=== PATIENT | female | born 1950 | race Caucasian/White ===

== ENCOUNTER 2019-06-07 00:23 | Day surgery (SDC) | payer MEDICARE, SELFPAY ==
[2019-06-04 15:29] VITALS: BMI 34.0
[2019-06-07] MEDS: LACTATED RINGERS 1,000 ML 150 ML IV CONT (13:10)
[2019-06-07 13:12] VITALS: BP 148/76; PULSE 91; RESP 16; TEMP 29.3; O2SAT 96; BMI 34.1
--- NOTE | 2019-06-07 13:26 | WPDANESEPPF ---
Anes - Initial Pre Proc Eval Procedure: Operation Date: 06/07/19 13:30 Proposed Procedures p Esophagogastroduodenoscopy - Manuel Mancia MD Date/Time: 06/07/19 13:26 Surgeon: Manuel Mancia MD Pre Op Diagnosis: dysphagia, GERD Patient Data Age: 68 Gender: F Height: 5 ft 2 in Weight: 84.7 kg Last Vital Signs Temp 84.7 F L 06/07/19 13:12 Pulse 91 06/07/19 13:12 Resp 16 06/07/19 13:12 BP 148/76 H 06/07/19 13:12 Pulse Ox 96 06/07/19 13:12 Allergies Allergy/AdvReac Type Severity Reaction Status Date / Time Sulfa (Sulfonamide Allergy Unknown Pruritic Verified 06/07/19 12:55 Antibiotics) rash Home Medications Medication Instructions Recorded Confirmed Type alprazolam 0.25 mg tablet 0.25 mg PO PRN 03/15/19 04/14/19 History atorvastatin 10 mg tablet 10 mg PO DAILY 03/15/19 06/04/19 History valsartan 40 mg tablet 40 mg PO BID 03/15/19 06/04/19 History sucralfate 1 gram tablet 1 gm PO BID #60 tablet 04/13/19 06/04/19 Rx trazodone 100 mg tablet 50 mg PO DAILY #90 tablet 04/13/19 06/04/19 Rx venlafaxine 75 mg capsule,extended 75 mg PO DAILY #90 cap 04/13/19 06/04/19 Rx release 24 hr hydrochlorothiazide 25 mg PO BID 06/04/19 06/04/19 History Patient hx anesthesia problems: none Family hx anesthesia problems: none [facility] Past Medical History Medical History (Updated 04/14/19 @ 09:57 by Adrianna Silva MD) Benign hypertension without CHF Degenerative joint disease of knee GERD (gastroesophageal reflux disease) GERD with esophagitis MDD (major depressive disorder), recurrent episode, moderate Medial meniscus tear Social History Social History (Updated 04/13/19 @ 09:28 by Fern Coles) Smoking status: Never smoker Second hand tobacco smoke exposure: No Alcohol intake: current Drinks per week: 1 Substance use: never Substance use type: does not use Gender identity (if verbalized by the patient): Female Anes - Eval Final PreProcedure Day of Procedure 06/07/19 13:26 Patient weight: obese Heart: regular rate and rhythm Lungs: clear to auscultation Airway: Mallampati scale class II Neurological: alert and oriented Last oral intake: >/= 8 hours ASA classification: II Emergent: no Anesthetic plan: proceed Anesthesia type and monitoring: general GIVS and standard monitoring Informed Consent: The patient's anesthetic plan and its attendant risks and benefits were discussed with the patient/family/POA. Questions were solicited and answers provided to the satisfaction of the patient/family/POA.
--- NOTE | 2019-06-07 14:13 | PM.HPGS ---
History of Present Illness History of Present Illness Consent: Risks, benefits, and alternatives have been discussed and questions answered. Patient agrees to proceed with procedure. Chief complaint: dysphagia, GERD Narrative: Randi Ervin is a 68 year old female with symptomatic GERD and nausea, EGD 2018 was normal. Review of Systems Constitutional: Constitutional: Denies headache(s) and Denies weakness Eyes: Eyes: Denies blurry vision ENT: Reports Normal hearing present, Denies headache(s) and Denies neck pain Cardiovascular: Cardiovascular: Denies chest pain and Denies dyspnea Respiratory: Respiratory: Denies dyspnea Gastrointestinal: Gastrointestinal: Reports no additional gastrointestinal complaints Genitourinary: Genitourinary: Denies dysuria Musculoskeletal: Musculoskeletal: Denies neck pain Integumentary/Breasts: Skin/Breast: Denies dry skin Neurologic: Reports Normal hearing present, Denies headache(s) and Denies weakness Psychiatric: Psychiatric: Denies anxiety Endocrine: Endocrine: Denies change in body appearance Hematologic/Lymphatic: Hematologic/Lymphatic: Denies easy bleeding Allergic/Immunologic: Allergic/Immunologic: Denies urticaria PMF Past Medical History Medical History (Updated 04/14/19 @ 09:57 by Adrianna Silva MD) Benign hypertension without CHF Degenerative joint disease of knee GERD (gastroesophageal reflux disease) GERD with esophagitis MDD (major depressive disorder), recurrent episode, moderate Medial meniscus tear Social History Social History (Updated 04/13/19 @ 09:28 by Fern Coles) Smoking status: Never smoker Second hand tobacco smoke exposure: No Alcohol intake: current Drinks per week: 1 Substance use: never Substance use type: does not use Gender identity (if verbalized by the patient): Female Meds Home Medications and Allergies Home Medications Medication Instructions Recorded Confirmed Type alprazolam 0.25 mg tablet 0.25 mg PO PRN 03/15/19 04/14/19 History atorvastatin 10 mg tablet 10 mg PO DAILY 03/15/19 06/04/19 History valsartan 40 mg tablet 40 mg PO BID 03/15/19 06/04/19 History sucralfate 1 gram tablet 1 gm PO BID #60 tablet 04/13/19 06/04/19 Rx trazodone 100 mg tablet 50 mg PO DAILY #90 tablet 04/13/19 06/04/19 Rx venlafaxine 75 mg capsule,extended 75 mg PO DAILY #90 cap 04/13/19 06/04/19 Rx release 24 hr hydrochlorothiazide 25 mg PO BID 06/04/19 06/04/19 History Allergies Allergy/AdvReac Type Severity Reaction Status Date / Time Sulfa (Sulfonamide Allergy Unknown Pruritic Verified 06/07/19 12:55 Antibiotics) rash Vital Signs Vital Signs - 24 hr 06/07/19 13:12 Temperature 84.7 F L Pulse Rate 91 Respiratory Rate 16 Blood Pressure 148/76 H Pulse Oximetry 96 Exam Const: General: comfortable and no acute distress HENMT: General nose exam: Normal nares present Eyes: General: appearance normal, both eyes and all related structures Neck: Neck: no JVD Resp: Auscultation: clear to auscultation bilaterally Cardio: Rate: regular rate Rhythm: regular rhythm GI: Inspection: non-distended GI Palp: Yes Soft to palpation Skin: General skin exam: normal color Neuro: General: gait normal Speech: normal speech Extrem: General: normal to inspection Psych: Mental Status: mental status grossly normal Assessment and Plan Assessment and plan (1) GERD with esophagitis: Code(s): K21.0 - Gastro-esophageal reflux disease with esophagitis Status: Acute Assessment and Plan: will proceed with EGD, consider biopsies and probably will need to be back on PPI (2) Chest pressure: Code(s): R07.89 - Other chest pain Status: Acute (3) MDD (major depressive disorder), recurrent episode, moderate: Code(s): F33.1 - Major depressive disorder, recurrent, moderate Status: Acute
[2019-06-07 14:30] VITALS: BP 136/64; PULSE 82; RESP 20; O2SAT 100
[2019-06-07 14:40] VITALS: BP 139/60; PULSE 79; RESP 18; O2SAT 100
[2019-06-07 14:50] VITALS: BP 136/71; PULSE 71; RESP 17; O2SAT 100
== END 2019-06-07 15:01 | disposition home or self-care (01) ==
PROVIDERS: PCP Family Medicine; Visit Provider Internal Medicine Gastroenterology
PROC: 0DJ08ZZ Inspection of Upper Intestinal Tract, Via Natural or Artificial Opening Endoscopic (ICD-10-PCS; CPT 43235; principal; 2019-06-07 13:30)
DX: K22.2 Esophageal obstruction (principal); K44.9 Diaphragmatic hernia without obstruction or gangrene; K21.0 Gastro-esophageal reflux disease with esophagitis; K29.50 Unspecified chronic gastritis without bleeding; I10 Essential (primary) hypertension; F33.1 Major depressive disorder, recurrent, moderate
CPT/HCPCS: 43239; 88305; 88342; J2704; J7120

== ENCOUNTER 2019-11-07 01:21 | Outpatient (CLI) | payer MEDICARE, SELFPAY ==
[2019-11-07 19:01] LABS: SARS-CoV-2 RNA PCR Negative
== END 2019-11-07 01:22 | disposition home or self-care (01) ==
LOC: ANHCOVIDDT 01:21
PROVIDERS: PCP Family Medicine; Visit Provider Internal Medicine Gastroenterology
DX: Z01.812 Encounter for preprocedural laboratory examination (principal); Z11.59 Encounter for screening for other viral diseases
CPT/HCPCS: 87635; C9803; U0003

== ENCOUNTER 2019-11-09 02:59 | Day surgery (SDC) | payer MEDICARE, SELFPAY ==
[2019-11-01 13:50] VITALS: BMI 34.2
[2019-11-09 12:26] VITALS: BP 147/71; PULSE 91; RESP 18; TEMP 37.3; O2SAT 96; BMI 34.1
[2019-11-09] MEDS: LACTATED RINGERS 1,000 ML 150 ML IV CONT (12:33)
--- NOTE | 2019-11-09 12:34 | SUR.PREOP ---
pt notified of approx 20 min delay in procedure start time. pt verbalized understanding.
--- NOTE | 2019-11-09 13:06 | WPDANESEPPF ---
Anes - Initial Pre Proc Eval Procedure: Operation Date: 11/09/19 13:45 Proposed Procedures p Esophagogastroduodenoscopy - Manuel Mancia MD Date/Time: 11/09/19 13:06 Surgeon: Manuel Mancia MD Pre Op Diagnosis: Gerd, Nausea, Vomiting Patient Data Age: 68 Gender: F Height: 5 ft 2 in Weight: 84.7 kg Last Vital Signs Temp 37.3 C 11/09/19 12:26 Pulse 91 11/09/19 12:26 Resp 18 11/09/19 12:26 BP 147/71 H 11/09/19 12:26 Pulse Ox 96 11/09/19 12:26 Allergies Allergy/AdvReac Type Severity Reaction Status Date / Time Sulfa (Sulfonamide Allergy Unknown Pruritic Verified 11/09/19 12:23 Antibiotics) rash Home Medications Medication Instructions Recorded Confirmed Type atorvastatin 10 mg tablet 10 mg PO DAILY 03/15/19 11/01/19 History venlafaxine 75 mg capsule,extended 75 mg PO DAILY #90 cap 04/13/19 11/01/19 Rx release 24 hr alprazolam 0.25 mg tablet 0.25 mg PO DAILY PRN #30 tablet 08/17/19 11/01/19 Rx trazodone 100 mg tablet 50 mg PO DAILY #90 tablet 08/21/19 11/01/19 Rx acetaminophen 300 mg-codeine 30 mg 1 tablet PO Q6H PRN #60 tablet 08/29/19 11/01/19 Rx tablet hydrochlorothiazide 25 mg tablet 25 mg PO BID #180 tablet 09/10/19 11/09/19 Rx valsartan 40 mg tablet 40 mg PO BID #60 tablet 10/17/19 11/01/19 Rx esomeprazole magnesium 40 mg 40 mg PO DAILY #30 cap 10/29/19 11/01/19 Rx capsule,delayed release sucralfate [Carafate] 1 gm PO TID 11/01/19 11/01/19 History Patient hx anesthesia problems: none Family hx anesthesia problems: none PMFSH Past Medical History Medical History Benign hypertension without CHF Degenerative joint disease of knee GERD (gastroesophageal reflux disease) GERD with esophagitis Hiatal hernia MDD (major depressive disorder), recurrent episode, moderate Medial meniscus tear Nausea and vomiting in adult Surgical History Surgical History H/O: hysterectomy History of cholecystectomy Social History Social History Smoking status: Never smoker Second hand tobacco smoke exposure: No Alcohol intake: current Drinks per week: 1 Substance use: never Substance use type: does not use Additional living arrangements comments: Rodriguez Ervin Gender identity (if verbalized by the patient): Female Anes - Eval Final PreProcedure Day of Procedure 11/09/19 13:06 Patient weight: obese Heart: regular rate and rhythm Lungs: clear to auscultation Airway: Mallampati scale class II Neurological: alert and oriented Last oral intake: >/= 8 hours ASA classification: III Emergent: no Anesthetic plan: proceed Anesthesia type and monitoring: general GIVS and standard monitoring Informed Consent: The patient's anesthetic plan and its attendant risks and benefits were discussed with the patient/family/POA. Questions were solicited and answers provided to the satisfaction of the patient/family/POA.
--- NOTE | 2019-11-09 13:32 | WPDHPUPDATE1 ---
History and Physical Update Update Date/Time: 11/09/19 13:32 History and Physical has been reviewed, including an updated exam of the patient. There are NO changes in the patient's condition. Risks, benefits, and alternatives have been discussed and questions answered. Patient agrees to proceed with procedure.
[2019-11-09 13:56] VITALS: BP 133/66; PULSE 76; RESP 25; O2SAT 98
[2019-11-09 14:06] VITALS: BP 133/65; PULSE 74; RESP 19; O2SAT 100
[2019-11-09 14:16] VITALS: BP 133/75; PULSE 73; RESP 22; O2SAT 98
== END 2019-11-09 14:28 | disposition home or self-care (01) ==
PROVIDERS: PCP Family Medicine; Visit Provider Internal Medicine Gastroenterology
PROC: 0DJ08ZZ Inspection of Upper Intestinal Tract, Via Natural or Artificial Opening Endoscopic (ICD-10-PCS; CPT 43235; principal; 2019-11-09 13:45)
DX: K21.0 Gastro-esophageal reflux disease with esophagitis (principal); K22.2 Esophageal obstruction; I10 Essential (primary) hypertension; E66.9 Obesity, unspecified; Z68.34 Body mass index [BMI] 34.0-34.9, adult; E78.5 Hyperlipidemia, unspecified; F41.9 Anxiety disorder, unspecified; Z79.899 Other long term (current) drug therapy
CPT/HCPCS: 43239; 43249; 88305; C1726; J2001; J2704; J7120

== ENCOUNTER → 2020-01-31 07:49 | Outpatient (CLI) | payer MEDICARE, SELFPAY ==
--- NOTE | ~2020-01-31 | MR_ITS ---
EXAMINATION: MR knee LT wo con DATE: 01/31/2020 08:21 INDICATION: Left knee pain TECHNIQUE: Magnetic resonance imaging (MRI) of the left knee was performed without intravenous contra st. Sequences included coronal PD-weighted FSE, coronal PD-weighted FS FSE, sagittal T2-weighted FSE , sagittal PD-weighted FS FSE and axial PD weighted fat saturated FSE. COMPARISON: None. FINDINGS: Medial compartment: There is extrusion of the medial meniscal body. Longitudinal horizontal tear extending to the free ed ge at the anterior horn and anterior body of the medial meniscus. A portion of the anterior horn on t he anterior side of the meniscal tear is subluxed peripherally and inferiorly across the rim of the m edial tibial plateau. Prominent increased intrasubstance signal in the posterior horn of the medial m eniscus which does not unambiguously contact the articular surface consistent with mucoid degeneratio n. There is full/near full-thickness along the anterior and medial aspect of the medial tibial platea u where there is prominent subarticular edema and decreased T1 signal suggesting eburnation. Addition al extensive full/near full-thickness chondral ulceration along the anterior to central weightbearing medial femoral condyle. Cartilage thickness is more preserved at the posterior weightbearing medial femoral condyle but with deep fissuring and associated subarticular edema. Lateral compartment: Small focus of increased signal at the inner free edge of the body of the lateral meniscus which is s een on only a single coronal plane which is equivocal for a small tear. Small region of shallow chond ral ulceration along the medial margin of the posterior weightbearing lateral femoral condyle. Patellofemoral compartment: Deep chondral ulceration without degenerative subarticular changes at the medial patellar facet and a pical ridge. Additional partial thickness chondral ulceration along the medial margin of the medial t rochlea. Ligaments and tendons: Anterior and posterior cruciate ligaments are normal. The medial collateral ligament and fibular fiorella ateral ligament complex are normal. The extensor mechanism is normal with a few bands of magic angle artifact extending across the patellar tendon. The visualized medial and lateral hamstring tendons as well as the iliotibial band are normal. Fluid: Normal knee joint effusion with mild synovitis at the suprapatellar pouch. No loose osteochondral bod ies identified. Osseous/other: Bone alignment is normal. No fracture or pathologic marrow replacing process. IMPRESSION: 1. Medial meniscal tear. 2. Moderate to severe osteoarthritis at the medial compartment with extensive high-grade chondromalac ia and prominent subarticular edema at the medial tibial plateau. 3. Mild to moderate patellofemoral osteoarthritis with high-grade patellar chondromalacia. 4. Mild osteoarthritis in the lateral compartment small region of moderate grade chondromalacia at th e posterior lateral femoral condyle. 5. Likely reactive small left knee joint effusion. Reviewed, dictated and finalized at location A. IMPRESSION: 1. Medial meniscal tear. 2. Moderate to severe osteoarthritis at the medial compartment with extensive h igh-grade chondromalacia and prominent subarticular edema at the medial tibial plateau. 3. Mild to moderate patellofemoral osteoarthritis with high-grade patellar westley dromalacia. 4. Mild osteoarthritis in the lateral compartment small region of moderate grad e chondromalacia at the posterior lateral femoral condyle. 5. Likely reactive small left knee joint effusion.
== END ==
PROVIDERS: PCP Family Medicine; Visit Provider Orthopaedic Surgery
DX: S83.242A Other tear of medial meniscus, current injury, left knee, initial encounter (principal); X58.XXXA Exposure to other specified factors, initial encounter; M17.12 Unilateral primary osteoarthritis, left knee; M25.462 Effusion, left knee
CPT/HCPCS: 73721

== ENCOUNTER 2020-03-14 07:55 | Outpatient (CLI) | payer MEDICARE, SELFPAY ==
--- NOTE | 2020-03-14 08:59 | ECG_ITS ---
Measurements Intervals [place] Rate: 88 P: 47 SD: 143 QRS: 0 QRSD: 93 T: 40 QT: 386 QTc: 469 Interpretive Statements SINUS RHYTHM DELAYED PRECORDIAL R/S TRANSITION BASELINE ARTIFACT- I, II, III, AVR, AVL, AVF, V1-V6 BORDERLINE ECG Electronically Signed On 03-14-2020 9:31:49 [employer]CTION [employer]GER by Klever Newman D.O.
== END 2020-03-14 07:56 | disposition home or self-care (01) ==
LOC: ANHSURGERY 08:00
PROVIDERS: PCP Family Medicine; Visit Provider Orthopaedic Surgery
DX: Z01.818 Encounter for other preprocedural examination (principal); M17.10 Unilateral primary osteoarthritis, unspecified knee; I10 Essential (primary) hypertension; R94.31 Abnormal electrocardiogram [ECG] [EKG]
CPT/HCPCS: 36415; 86850; 86900; 86901; 87081; 93005

== ENCOUNTER 2020-03-21 00:32 | Outpatient (CLI) | payer MEDICARE, SELFPAY ==
[2020-03-21 21:24] LABS: SARS-CoV-2 RNA PCR Negative
== END 2020-03-21 00:33 | disposition home or self-care (01) ==
LOC: ANHCOVIDDT 00:32
PROVIDERS: PCP Family Medicine; Visit Provider Orthopaedic Surgery
DX: Z01.818 Encounter for other preprocedural examination (principal); Z20.828 Contact with and (suspected) exposure to other viral communicable diseases
CPT/HCPCS: 87635; C9803; U0003

== ENCOUNTER 2020-03-24 01:20 | Day surgery (SDC) | payer MEDICARE, SELFPAY ==
[2020-03-14 09:06] VITALS: BP 151/79; PULSE 88; RESP 16; TEMP 37.4; O2SAT 98; BMI 34.6
[2020-03-24] VITALS (10 sets, daily range): BP systolic 118–130; BP diastolic 51–94; PULSE 72–95; RESP 13–20; TEMP 36.1–37.1; O2SAT 92–99
--- NOTE | ~2020-03-24 | XR_ITS ---
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 Subcutaneo us gas with fluid and air in the joint are consistent with recent surgery. No evidence of periprosthe tic fracture. IMPRESSION: 1. Recent left medial unicompartmental knee arthroplasty. Reviewed, dictated and finalized at location B. IBLE MACHINING SYSTEM MACHINIST
[2020-03-24] MEDS: ACETAMINOPHEN 500 MG TABLET 1000 MG PO (06:30)
[2020-03-24] MEDS: LACTATED RINGERS 1,000 ML 30 ML IV CONT ×2 (06:45→09:35)
[2020-03-24] MEDS: KETOROLAC 15 MG/ML VIAL (*BKC) IV PUSH (06:47)
[2020-03-24] MEDS: TRANEXAMIC ACID 1,000MG/ISO100 1,000 MG/100 ML BAG 200 MG IVPB (06:49)
--- NOTE | 2020-03-24 07:05 | WPDANESEPPF ---
Anes - Initial Pre Proc Eval Procedure: Operation Date: 03/24/20 07:30 Proposed Procedures p Left Unicompartmental Knee Arthroplasty, Right Knee Injection - Kumar Stanton MD Date/Time: 03/24/20 07:05 Surgeon: Kumar Stanton MD Pre Op Diagnosis: OA Porfirio Knee Patient Data Age: 69 Gender: F Height: 5 ft 3 in Weight: 88.7 kg Last Vital Signs Temp 37.4 C 03/14/20 09:06 Pulse 88 03/14/20 09:06 Resp 16 03/14/20 09:06 BP 151/79 H 03/14/20 09:06 Pulse Ox 98 03/14/20 09:06 Allergies Allergy/AdvReac Type Severity Reaction Status Date / Time Sulfa (Sulfonamide Allergy Unknown SWELLING/RA Verified 03/14/20 09:01 Antibiotics) SH Home Medications Medication Instructions Recorded Confirmed Type atorvastatin 10 mg tablet 10 mg PO DAILY 03/15/19 03/24/20 History valsartan 40 mg tablet 40 mg PO BID #60 tablet 12/08/19 03/24/20 Rx alprazolam 0.25 mg tablet 0.25 mg PO BID PRN #60 tablet 01/04/20 03/24/20 Rx omega-3 339mg-dha,epa 1 cap PO DAILY 01/04/20 03/24/20 History 314mg-fish,krill 500mg-lutein,zeax 24mg capsule hydrochlorothiazide 25 mg tablet 25 mg PO BID #180 tablet 01/23/20 03/24/20 Rx venlafaxine 75 mg capsule,extended 75 mg PO BID #180 cap 02/19/20 03/24/20 Rx release 24 hr rivaroxaban 10 mg tablet 10 mg PO DAILY #13 tablet 03/13/20 03/14/20 Rx Lacto.acidophilus-Bif.animalis 1 cap PO DAILY 03/14/20 03/24/20 History [Daily Probiotic] esomeprazole magnesium 40 mg PO DAILY 03/14/20 03/24/20 History sucralfate 1 g PO TID 03/14/20 03/24/20 History trazodone 100 mg PO HS 03/14/20 03/24/20 History acetaminophen [Tylenol Arthritis] 650 mg PO Q12H PRN 11/24/20 11/30/20 History Patient hx anesthesia problems: none Family hx anesthesia problems: none PMFSH Past Medical History Medical History Benign hypertension without CHF BMI 30.0-30.9,adult BMI 34.0-34.9,adult Chronic insomnia Degenerative joint disease of knee JOSE (generalized anxiety disorder) GERD (gastroesophageal reflux disease) GERD with esophagitis Hiatal hernia Hyperlipidemia MDD (major depressive disorder), recurrent episode, moderate Medial meniscus tear Nausea and vomiting in adult Surgical History Surgical History H/O: hysterectomy History of cholecystectomy Family History Family History Father Family history of premature coronary heart disease, Onset Age: 63 Sibling Patient's brother is in good health Mother Family history of malignant neoplasm of breast in first degree relative, Onset Age: 64 Patient's mother is Other Depression Diabetes mellitus Family history of cardiovascular disease Family history of malignant neoplasm Hypertension Social History Social History Social History: Smoking status: Never smoker Second hand tobacco smoke exposure: No Alcohol intake: current Drinks per week: 21 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 Substance use: never Substance use type: does not use Living arrangements: with family Additional living arrangements comments: Rodriguez Ervin Gender identity (if verbalized by the patient): Female Spiritual care concerns: No Anes - Eval Final PreProcedure Day of Procedure 03/24/20 07:05 Patient weight: obese Heart: regular rate and rhythm Lungs: clear to auscultation Airway: Mallampati scale class II Neurological: alert and oriented Last oral intake: >/= 8 hours ASA classification: III Emergent: no Anesthetic plan: proceed Anesthesia type and monitoring: general LMA and standard monitoring Informed Consent: The patient's anesthetic plan and its attendant risks and benefits were discussed with the patient/family/POA. Questions were solicite
--- NOTE | 2020-03-24 07:06 | WPDHPUPDATE1 ---
History and Physical Update Update Date/Time: 03/24/20 07:06 History and Physical has been reviewed, including an updated exam of the patient. There are NO changes in the patient's condition. Risks, benefits, and alternatives have been discussed and questions answered. Patient agrees to proceed with procedure.
[2020-03-24] MEDS: ceFAZolin 2 GM/D5W 50 ML 2 GM/50 ML BAG IVPB (07:29)
--- NOTE | 2020-03-24 07:32 | WPDANESPNB ---
Anes - Peripheral Nerve Block Date/Time: 03/24/20 07:32 I have discussed with the patient/family/POA the placement of a peripheral nerve block for post-operative pain management, including associated risks, benefits, complications, and side effects. Alternative methods of post-operative analgesia were detailed. Questions were solicited and answers provided to the satisfaction of the patient/family/POA. Time-Out: A pre-procedural Time-Out was completed immediately before starting the procedure and confirmed: Patient Identification, Site, Procedure, Patient Position and the Availability of Requisite Equipment. Clinical Indications: Acute post-operative pain management requested by the operative surgeon. Nerve Block Insertion Note Anes-nerve block: adductor canal left Patient position: supine Skin prep: chlorhexidine Needle: 22 gauge, stimulating, insulated echogenic needle. Needle length: 80 mm Technique: ultrasound Technique comment: mid 2mg fent 100mcg Injectate: bupivacaine 0.5% with epi 5 mcg/ml and dexamethasone (mg) (4) Observations: tolerated well Complications: none Procedure start time:: 717 Procedure end time:: 724
[2020-03-24] MEDS: TRANEXAMIC ACID 1,000 MG/10 ML AMPUL 1000 MG TOPICAL (07:52)
[2020-03-24] MEDS: TRIAMCINOLONE ACET INJ SUSP 50 MG/5 ML VIAL IM (07:55)
--- NOTE | 2020-03-24 09:45 | P.OP_ITS ---
Procedure Note - Detailed Date of procedure: 03/24/20 Pre-op diagnosis: OA Porfirio Knee Post-op diagnosis: same Procedure performed: Left knee unicompartmental replacement; right knee intra- articular injection Description of procedure: The patient was identified and the proper site identified. In the preop holding area the anesthesia team performed a left lower extremity block. She was then taken to the operating room and transferred to the OR table placing him supine taking care to pad her torso and extremities. After general anesthetic induction and intubation. a nonsterile tourniquet was placed high on the left thigh. The right knee was injected intra-articularly using sterile technique with 2 mL of 1% lidocaine 20 mg of Kenalog. Band-Aid was applied. The left lower extremity was positioned, prepped, and draped in the usual s terile fashion. The extremity was exsanguinated and the tourniquet was inflated to 300 mmHg remaining up for approximately 50 minutes. An anterior midline incision was made and sharp dissection carried down through the subcutaneous tissue to the extensor mechanism. A modified medial parapatellar arthrotomy was performed. The articular and meniscal cartilage of the lateral compartment was inspected and noted to be in excellent shape. Anterior and posterior cruciate ligaments were in continuity. There were extensive degenerative changes medial compartment and milder patellofemoral changes. The marginal osteophytes were removed from the notch and the medial aspect of the medial femoral condyle, and the remaining meniscal tissue was removed. The femur was sized to a small. With the appropriate spoon and tibial guide, a tibial resection was made. This was sized to AA. Using the mill, the flexion and extension gaps were balanced. A trial reduction was undertaken. The range of motion of the knee was noted to be from full extension to 120 ? of flexion with excellent stability through range of motion. The polyethylene insert tracked nicely. The trial components were removed. The real small femur and size AA tray for the left knee were cemented into place. The knee was held in about 30? of flexion while the cement cured. The tourniquet was released and excess cement was removed from the joint. Hemostasis was carried out. The knee was flushed with a copious amount of irrigation. After trialing, the appropriate real size three left insert for the femoral component was inserted and the stability again assessed. The knee was noted to be stable as it was taken through range of motion. The periarticular tissues were injected with 60 mL of 0.25% Marcaine and epinephrine solution and 1 g of tranexamic acid was left in the wound. The extensor mechanism was repaired with 0 looped PDS suture, the subcu with [] for the skin. A sterile dressing was applied. The patient tolerated the procedure well, was awakened, extubated, and taken to recovery room in stable condition. There were no known intraoperative complications. Anesthesia: GLMA Surgeon: Kumar Stanton MD Production Underwriter: Dion Clark Estimated blood loss (mL): 50 Tourniquet time (min): 50 Drains: No Packing: No Pathology: none sent Complications: No immediate complications Condition: stable Disposition: PACU
--- NOTE | 2020-03-24 11:19 | SUR.PHASEII ---
1110 - Yary from PT in room working with pt
--- NOTE | 2020-03-24 11:37 | SUR.PHASEII ---
1135 - pt eating lunch tray. pt denies pain and discomfort.
--- NOTE | 2020-03-24 12:29 | SUR.PHASEII ---
1220 - dr. guillermo updated on pt's status. pt meet anesthesia criteria. pt can be discharged home
== END 2020-03-24 12:30 | disposition home or self-care (01) ==
PROVIDERS: PCP Family Medicine; Visit Provider Orthopaedic Surgery
PROC: (CPT 27446; principal; 2020-03-24 07:30)
DX: M17.0 Bilateral primary osteoarthritis of knee (principal); G89.18 Other acute postprocedural pain; I10 Essential (primary) hypertension; E78.5 Hyperlipidemia, unspecified; K21.9 Gastro-esophageal reflux disease without esophagitis; F41.1 Generalized anxiety disorder; F33.1 Major depressive disorder, recurrent, moderate; Z79.01 Long term (current) use of anticoagulants; E66.9 Obesity, unspecified; Z68.34 Body mass index [BMI] 34.0-34.9, adult
CPT/HCPCS: 27446; 20610; 64447; 73560; 97110; 97161; A9270; C1776; J0171; J0690; J1100; J1885; J2250; J2405; J2704; J3010; J3301; J7120

== ENCOUNTER 2020-04-15 11:00 | Outpatient (RCR) | payer MEDICARE, SELFPAY ==
--- NOTE | 2020-03-17 09:38 | PTOPEVAL ---
PHYSICAL THERAPY EVALUATION AND PLAN OF CARE PRE-OPERATIVE Thank you for referring Randi Ervin to [facility].? Randi participated in pre-operative education today in preparation for left partial knee replacement on 03/24/2020. Please review, sign, date and return this plan of care MARIELA. I agree with and certify that the following plan of care is medically necessary. Referring Physician Date Attending Provider: Kumar Stanton MD Evaluation Outpatient Past Medical History Neurological History Hx Neurological Disorders No Significant History Cardiovascular History Hx Hypercholesterolemia Yes Hx Hypertension Yes Respiratory History Hx Respiratory Disorders No Significant History Gastrointestinal History Hx Appendectomy Yes Hx Cholecystectomy Yes Hx Diverticulitis Yes Hx Gall Bladder Disease Yes Hx Gastroesophageal Reflux Disease Yes Hx Polyps Yes Hx Ulcer Yes: DUODENAL ULCER Hx Other Gastrointestinal Disorders Yes: ESOPHAGITIS Genitourinary History Hx Genitourinary Disorders No Significant History Musculoskeletal History Hx Arthritis Yes: GENERALIZED Hx Other Musculoskeletal Disorders Yes: OA BILAT KNEES Hematological History Hx Hematological Disorders No Significant History Endocrine History Hx Endocrine Disorders No Significant History HEENT History Hx Other HEENT Disorders Yes: CONTACT LENS. BILAT HEARING AIDS Integumentary History Hx Skin Disorders No Significant History Reproductive History Hx Hysterectomy Yes Psychosocial History Hx Anxiety Yes: PANIC ATTACKS Hx Depression Yes Pain History History of Any Previous or Ongoing No Significant History Instance of Pain Anesthesia History Hx Anesthesia Reactions No Significant History Evaluation Information Problem Diagnosis left partial knee replacement Subjective Information going to have Left partial Query Text:As Reported By Patient/ knee replacement on 03/24. Family medial knee is what is painful and being replaced. Her right knee does well, but the whole upper leg into the hip will be sore, which is likely due to alternative form of walking Prior Level of Function Home Setting Home Type House,Single Level Environmental Barriers Railing, None,Stairs, 2-4 Living Situation With Spouse Support Available Local Family Support Mobility Assistive Devices (Used Last 3 None Months) Self Report Pain Assessment Left Knee(s)
--- NOTE | 2020-03-31 13:47 | PTOPEVAL ---
PHYSICAL THERAPY PLAN OF CARE UPDATE AND PROGRESS REPORT POST SURGERY Thank you for referring Randi Ervin to [facility].? The patient is scheduled to be seen for therapy?1-2x/week for 3-4 weeks. Please review, sign, date and return this plan of care MARIELA. I agree with and certify that the following plan of care is medically necessary. Referring Physician Date Attending Provider: Kumar Stanton MD Progress Diagnosis left partial knee replacement Subjective Information is 1 week s/p left partial Query Text:As Reported By Patient/ knee replacement. States pain Family has been fairly high. Night pain is the worst. States she is walking around her bed room without her walker, but the rest of the time she uses the walker. Self Report Pain Assessment Left Knee(s) Reported Pain Level 7 Pain Description Aching,Sharp Pain Frequency Chronic,Continuous Lowest Pain Intensity 3 Greatest Pain Intensity 9 Pain Aggravating Factors Bending,Sitting,Walking,Weight Bearing/Standing Pain Behaviors Guarding Pain Score Pain Score 7: Self Report Interventions Used Interventions Used By Clinicians Exercise,Manual Therapy Techniques Pain Relief Interventions Used By Ice,Medication Patient Lower Extremity Range of Motion Knee Range of Motion Left Knee Flexion Range of Motion - Active 100 Knee Extension Range of Motion - Active -10 Query Text: Lower Extremity Muscle Strength Testing Knee Strength Left Knee Flexion Strength 4 Good Knee Extension Strength 3- Fair - Knee Strength Comments fair quad set; able to perform 5 SLR without lag Palpation Assessment Palpation Palpation tight and tender left ITB Extremity Circumference Assessment Circumference Assessment Location Left Body Part Knee Site Descriptor ([place]) suprapatellar Circumference (cm) 47 Noninvolved Side Circumference (cm) 45 Balance Assessment 5 Time Sit to Stand Time in Seconds 18.65 5 Time Sit to Stand Comments with arm rests Query Text:Normative Data: If Greater Than 15 Seconds, 74% Increase Risk for Recurrent Falls Gait Assessment Gait Assessment Ambulation Assistive Devices Walker, Wheeled Weight Bearing Status - Left As Tolerated Weight Bearing Status - Right Full Maintains Weight Bearing Status Yes Ambulation Destination In Gym Ambulation Surface Level Ambulation Ability
--- NOTE | 2020-04-17 10:48 | PCPTNOTE ---
PHYSICAL THERAPY DISCHARGE NOTE Attending Provider: Kumar Stanton MD Patient:Randi Ervin Date of :1950 Randi has participated in 2 weeks of physical therapy since her left partial knee arthroplasty. She had a physician's visit on 04/16/2020 and was instructed to stop therapy at this time. We will discharge her from the system. Thank you for referring this patient to [facility]. Please review, sign, date and return this discharge summary MARIELA. I have been updated about the patient's current status and I agree with discharge from the above service at this time. Referring Physician Date
== END 2020-06-02 08:00 | disposition home or self-care (01) ==
LOC: ANHPT 11:00
PROVIDERS: PCP Family Medicine; Visit Provider Orthopaedic Surgery
DX: M25.562 Pain in left knee (principal)
CPT/HCPCS: 97110; 97140; 97161

== ENCOUNTER 2020-09-18 11:25 | Outpatient (CLI) | payer MEDICARE, SELFPAY ==
--- NOTE | ~2020-09-18 | US_ITS ---
EXAMINATION: US venous doppler [facility] DATE: 09/18/2020 12:01 INDICATION: Left lower limb pain and swelling TECHNIQUE: Spence scale images without and with compression and Doppler images of the left lower extrem ity veins were obtained. COMPARISON: None FINDINGS: The left common femoral vein, profunda femoral vein, femoral vein, popliteal vein, peroneal trunk, posterior tibial veins, and greater saphenous vein are patent. IMPRESSION: 1. Patent left lower extremity veins. No evidence of deep venous thrombosis. Reviewed, dictated and finalized at location A.
== END 2020-09-18 11:26 | disposition home or self-care (01) ==
LOC: ANHIMG 11:26
PROVIDERS: PCP Family Medicine; Visit Provider Orthopaedic Surgery
DX: M79.662 Pain in left lower leg (principal); M79.89 Other specified soft tissue disorders
CPT/HCPCS: 93971

== ENCOUNTER 2020-10-08 11:41 | Outpatient (CLI) | payer MEDICARE, SELFPAY ==
--- NOTE | ~2020-10-08 | US_ITS ---
EXAMINATION: US venous doppler [facility] DATE: 10/08/2020 12:09 INDICATION: Left lower limb swelling TECHNIQUE: Grayscale ultrasound images without and with compression and Doppler ultrasound images of the left lower extremity veins were obtained. COMPARISON: None. FINDINGS: The visualized portions of left common femoral vein, profunda (deep) femoral vein, femoral vein, popl iteal vein, peroneal veins, posterior tibial veins, gastrocnemius vein and greater saphenous vein out flow are patent. 1.9 x 1.6 x 0.8 cm Amor cyst at the left popliteal fossa. IMPRESSION: 1. No deep venous thrombosis in the left lower limb. 2. Small left Amor's cyst. Reviewed, dictated and finalized at location A.
== END 2020-10-08 11:42 | disposition home or self-care (01) ==
LOC: ANHIMG 11:43
PROVIDERS: PCP Family Medicine; Visit Provider Orthopaedic Surgery
DX: R07.89 Other chest pain (principal); M71.22 Synovial cyst of popliteal space [Baker], left knee
CPT/HCPCS: 93971

== ENCOUNTER 2020-11-21 10:01 | Outpatient (CLI) | payer MEDICARE, SELFPAY ==
--- NOTE | ~2020-11-21 | DEXA_ITS ---
Bone Density Report Name: Randi Ervin Age: 69 Sex: Female Ethnicity: White Date of : 1950 Indication: postmenopausal; hysterectomy; Referring Provider: DARCIE SHARMA Study: Bone densitometry was performed. Exam Date: November 21, 2020 Accession number: [id number] Bone Density: Region BMD T-score Z-score Classification AP Spine (L1-L4) 1.092 0.4 2.6 Normal Femoral Neck (Left) 0.693 -1.4 0.5 Osteopenia Total Hip (Left) 0.959 0.1 1.7 Normal Total Hip Bilateral Avg 0.943 0.0 1.6 Normal Femoral Neck (Right) 0.683 -1.5 0.4 Osteopenia Total Hip (Right) 0.925 -0.1 1.5 Normal World Health Organization criteria for BMD impression classify patients as: Normal (T-score at or above -1.0), Osteopenia (T-score between -1.0 and -2.5), or Osteoporosis (T-score at or below -2.5). 10-year Fracture Risk(1): Major Osteoporotic Fracture 9.8% Hip Fracture 1.5% Reported Risk Factors: [place] (), Neck BMD=0.683, BMI=34.5 (1) FRAX(R) Version 3.08. Fracture probability calculated for an untreated patient. Fracture probability may be lower if the patient has received treatment. Clinical Information Provided by Patient: Has the following medical conditions: Hysterectomy Patient maximum height was 63 Menopause Age: 34 No regular weight bearing exercise Onset of menses at age 14 Number of children 2 Impression: The patient has low bone mass, based on the Right Femoral Neck T-score. The patient has an estimated ten-year risk of hip fracture of 1.5% and an estimated ten-year risk of major fracture of 9.8%, based on the WHO FRAX algorithm. Discussion: BONE DENSITY IS LOW AT ONE OR MORE SKELETAL SITES. This patient's lowest T-score is low at one or more skeletal sites. It meets the World Health Organization's (WHO) criteria for ?low bone mass? (T-score between -1.0 and -2.5). The patient's 10-year risk of fracture as calculated by FRAX is less than the threshold where pharmacological therapy is recommended by the National Osteoporosis Foundation (NOF). However, all treatment decisions require clinical judgment and consideration of individual patient factors, including patient preferences, comorbidities, previous drug use, risk factors not captured in the FRAX model (e.g., frailty, falls, vitamin D deficiency, increased bone turnover, interval significant decline in bone density) and possible under or overestimation of fracture risk by FRAX. The patient should follow a healthful lifestyle (good nutrition with adequate calcium and vitamin D, and appropriate weight-bearing exercise). Follow-Up: Consider repeating this study in 2 to 3 years to reassess this patient's status, or sooner if there is some new clinical indication. Reported by: MAURA on 11/21/2020 10:27:00 AM.
--- NOTE | ~2020-11-21 | MM_ITS ---
EXAMINATION: MM screening sonu BI w susannah HISTORY: Screening mammogram TECHNIQUE: Craniocaudal and mediolateral oblique 3-D tomosynthesis images were obtained and synthetic 2-D images were generated. CAD analysis was submitted and interpreted. COMPARISON: 02/02/2019 bilateral digital screening mammogram 04/13/2016 bilateral diagnostic mammogram and Limited bilateral breast ultrasound examination 06/14/2014 bilateral digital screening mammogram BREAST PARENCHYMAL COMPOSITION: There are scattered areas of fibroglandular density. FINDINGS: Subtle grouped microcalcifications are noted in the outer mid left breast. Diagnostic left mammogram with magnification views is recommended. Otherwise there Is no evidence of suspicious mass, calcification, or architectural distortion to sugg est malignancy in either breast. There has been no other suspicious interval change. IMPRESSION: 1. Left breast microcalcifications 2. Diagnostic left mammogram with magnification views is recommended. BI-RADS Category 0: Incomplete: Needs additional imaging evaluation. Reviewed, dictated and finalized at location A.
== END 2020-11-21 10:02 | disposition home or self-care (01) ==
LOC: ANHIMG 10:02
PROVIDERS: PCP Family Medicine; Visit Provider Family Medicine
DX: Z12.31 Encounter for screening mammogram for malignant neoplasm of breast (principal); Z78.0 Asymptomatic menopausal state; R92.8 Other abnormal and inconclusive findings on diagnostic imaging of breast; M85.852 Other specified disorders of bone density and structure, left thigh; M85.851 Other specified disorders of bone density and structure, right thigh
CPT/HCPCS: 77063; 77067; 77080

== ENCOUNTER 2021-01-01 12:48 | Outpatient (CLI) | payer MEDICARE, SELFPAY ==
--- NOTE | ~2021-01-01 | MM_ITS ---
EXAMINATION: MM diagnostic mammo unilat LT HISTORY: Subtle grouped microcalcifications in the outer mid left breast reported on screening mammog [place] of 11/21/2020 TECHNIQUE: Digital ML view. Magnification ML and craniocaudal spot images CAD analysis was submitted and interpreted. COMPARISON: 11/21/2020 bilateral digital screening mammogram FINDINGS: There are occasional benign microcalcifications. No malignant calcification is evident. A biopsy marker is noted. History of prior benign left breast biopsy. IMPRESSION: 1. No mammographic evidence of malignancy 2. Routine mammographic screening is recommended. BI-RADS Category 2: Benign finding(s). Reviewed, dictated and finalized at location A.
== END 2021-01-01 12:49 | disposition home or self-care (01) ==
LOC: ANHIMG 12:56
PROVIDERS: PCP Family Medicine; Visit Provider Physician Assistant
DX: R92.8 Other abnormal and inconclusive findings on diagnostic imaging of breast (principal)
CPT/HCPCS: 77065

== ENCOUNTER 2021-02-04 01:46 | Day surgery (SDC) | payer MEDICARE, SELFPAY ==
[2021-01-22 14:42] VITALS: BMI 32.0
[2021-02-04 12:43] VITALS: BP 162/70; PULSE 86; RESP 18; TEMP 36.6; O2SAT 98
[2021-02-04] MEDS: LACTATED RINGERS 1,000 ML 150 ML IV CONT (12:46)
--- NOTE | 2021-02-04 12:46 | WPDANESEPPF ---
Anes - Initial Pre Proc Eval Procedure: Operation Date: 02/04/21 13:30 Proposed Procedures p Esophagogastroduodenoscopy - Manuel Mancia MD Date/Time: 02/04/21 12:46 Surgeon: Manuel Mancia MD Pre Op Diagnosis: esophagitis, Dysphagia Patient Data Age: 70 Gender: F Height: 1.6 m Weight: 89.5 kg Last Vital Signs Temp 36.6 C 02/04/21 12:43 Pulse 86 02/04/21 12:43 Resp 18 02/04/21 12:43 BP 162/70 H 02/04/21 12:43 Pulse Ox 98 02/04/21 12:43 Allergies Allergy/AdvReac Type Severity Reaction Status Date / Time Sulfa (Sulfonamide Allergy Unknown SWELLING/RA Verified 02/04/21 12:35 Antibiotics) SH Home Medications Medication Instructions Recorded Confirmed Type omega-3 339mg-dha,epa 1 cap PO DAILY 01/04/20 01/22/21 History 314mg-fish,krill 500mg-lutein,zeax 24mg capsule Daily Probiotic 1 cap PO DAILY 03/14/20 01/22/21 History acetaminophen 650 mg PO Q12H PRN 03/18/20 01/22/21 History atorvastatin 10 mg tablet 10 mg PO DAILY #90 tablet 08/14/20 01/22/21 Rx valsartan 40 mg tablet 40 mg PO BID #180 tablet 09/09/20 01/22/21 Rx venlafaxine 75 mg capsule,extended 75 mg PO BID #180 cap 09/09/20 01/22/21 Rx release 24 hr trazodone 100 mg tablet 100 mg PO HS #90 tablet 12/25/20 01/22/21 Rx alprazolam 0.25 mg PO DAILY PRN 02/04/21 02/04/21 History diltiazem HCl 180 mg PO DAILY 02/04/21 02/04/21 History esomeprazole magnesium 40 mg PO DAILY 02/04/21 02/04/21 History Patient hx anesthesia problems: none Family hx anesthesia problems: none Results Review: All pre-operative results and documents have been reviewed as part of the pre-operative evaluation. [facility] Past Medical History Medical History Alcohol use disorder, mild, abuse Benign hypertension without CHF BMI 30.0-30.9,adult BMI 34.0-34.9,adult Chronic insomnia Degenerative joint disease of knee JOSE (generalized anxiety disorder) GERD (gastroesophageal reflux disease) GERD with esophagitis Hiatal hernia Hyperlipidemia MDD (major depressive disorder), recurrent episode, moderate Medial meniscus tear Nausea and vomiting in adult Surgical History Surgical History H/O: hysterectomy History of cholecystectomy History of left knee replacement left knee Uni February 2020 Family History Family History Father Family history of premature coronary heart disease, Onset Age: 63 Sibling Patient's brother is in good health Mother Family history of malignant neoplasm of breast in first degree relative, Onset Age: 64 Patient's mother is Other Depression Diabetes mellitus Family history of cardiovascular disease Family history of malignant neoplasm Hypertension Social History Social History (Updated 11/11/20 @ 10:17 by Fern Coles) Social History: Smoking status: Never smoker Second hand tobacco smoke exposure: No Alcohol intake: current Drinks per week: 14 Alcohol use details: Occasionally Substance use: never Substance use type: does not use Living arrangements: with family Additional living arrangements comments: Rodriguez Ervin Gender identity (if verbalized by the patient): Female Sexual Orientation (if Verbalized by the Patient): Straight or Heterosexual Spiritual care concerns: No Anes - Eval Final PreProcedure Day of Procedure 02/04/21 12:46 Patient weight: obese Heart: regular rate and rhythm Lungs: clear to auscultation and normal air movement Airway: Mallampati scale class II Neurological: alert and oriented Last oral intake: >/= 8 hours ASA classification: III Emergent: no Anesthetic plan: proceed Anesthesia type and monitoring: general GIVS Results Review: All pre-operative results and documents have been reviewed as part of the pre-operative evaluati
--- NOTE | 2021-02-04 12:54 | PM.HPGS ---
History of Present Illness History of Present Illness Consent: Risks, benefits, and alternatives have been discussed and questions answered. Patient agrees to proceed with procedure. Chief complaint: esophagitis, Dysphagia Narrative: Randi Ervin is a 70 year old female with gerd on nexium and nausea, still drinking 2 vodka tonics every night. Review of Systems Constitutional: Constitutional: Denies headache(s) and Denies weakness Eyes: Eyes: Denies blurry vision ENT: Reports Normal hearing present, Denies headache(s) and Denies neck pain Cardiovascular: Cardiovascular: Denies chest pain and Denies dyspnea Respiratory: Respiratory: Denies dyspnea Gastrointestinal: Gastrointestinal: Reports no additional gastrointestinal complaints Genitourinary: Genitourinary: Denies dysuria Musculoskeletal: Musculoskeletal: Denies neck pain Integumentary/Breasts: Skin/Breast: Denies dry skin Neurologic: Reports Normal hearing present, Denies headache(s) and Denies weakness Psychiatric: Psychiatric: Denies anxiety Endocrine: Endocrine: Denies change in body appearance Hematologic/Lymphatic: Hematologic/Lymphatic: Denies easy bleeding Allergic/Immunologic: Allergic/Immunologic: Denies urticaria PMF Past Medical History Medical History (Updated 02/04/21 @ 12:55 by Manuel Mancia MD) Alcohol use disorder, mild, abuse Benign hypertension without CHF BMI 30.0-30.9,adult BMI 34.0-34.9,adult Chronic insomnia Degenerative joint disease of knee JOSE (generalized anxiety disorder) GERD (gastroesophageal reflux disease) GERD with esophagitis Hiatal hernia Hyperlipidemia MDD (major depressive disorder), recurrent episode, moderate Medial meniscus tear Nausea Nausea and vomiting in adult Surgical History Surgical History H/O: hysterectomy History of cholecystectomy History of left knee replacement left knee Uni February 2020 Family History Family History Father Family history of premature coronary heart disease, Onset Age: 63 Sibling Patient's brother is in good health Mother Family history of malignant neoplasm of breast in first degree relative, Onset Age: 64 Patient's mother is Other Depression Diabetes mellitus Family history of cardiovascular disease Family history of malignant neoplasm Hypertension Social History Social History (Updated 11/11/20 @ 10:17 by Fern Coles) Social History: Smoking status: Never smoker Second hand tobacco smoke exposure: No Alcohol intake: current Drinks per week: 14 Alcohol use details: Occasionally Substance use: never Substance use type: does not use Living arrangements: with family Additional living arrangements comments: Rodriguez Ervin Gender identity (if verbalized by the patient): Female Sexual Orientation (if Verbalized by the Patient): Straight or Heterosexual Spiritual care concerns: No Meds Home Medications and Allergies Home Medications Medication Instructions Recorded Confirmed Type omega-3 339mg-dha,epa 1 cap PO DAILY 01/04/20 01/22/21 History 314mg-fish,krill 500mg-lutein,zeax 24mg capsule Daily Probiotic 1 cap PO DAILY 03/14/20 01/22/21 History acetaminophen 650 mg PO Q12H PRN 03/18/20 01/22/21 History atorvastatin 10 mg tablet 10 mg PO DAILY #90 tablet 08/14/20 01/22/21 Rx valsartan 40 mg tablet 40 mg PO BID #180 tablet 09/09/20 01/22/21 Rx venlafaxine 75 mg capsule,extended 75 mg PO BID #180 cap 09/09/20 01/22/21 Rx release 24 hr trazodone 100 mg tablet 100 mg PO HS #90 tablet 12/25/20 01/22/21 Rx alprazolam 0.25 mg PO DAILY PRN 02/04/21 02/04/21 History diltiazem HCl 180 mg PO DAILY 02/04/21 02/04/21 History esomeprazole magnesium 40 mg PO DAILY 02/04/21 02/04/21 History Allergies Allergy/AdvReac Type Severity Reaction Status Date / Zander
[2021-02-04 13:10] VITALS: BP 138/63; PULSE 75; RESP 29; O2SAT 100
[2021-02-04 13:20] VITALS: BP 131/69; PULSE 76; RESP 19; O2SAT 98
[2021-02-04 13:30] VITALS: BP 145/74; PULSE 72; RESP 17; O2SAT 99
== END 2021-02-04 13:48 | disposition home or self-care (01) ==
PROVIDERS: PCP Family Medicine; Visit Provider Internal Medicine Gastroenterology
PROC: 0DJ08ZZ Inspection of Upper Intestinal Tract, Via Natural or Artificial Opening Endoscopic (ICD-10-PCS; CPT 43235; principal; 2021-02-04 13:30)
DX: R11.0 Nausea (principal); K21.9 Gastro-esophageal reflux disease without esophagitis; K44.9 Diaphragmatic hernia without obstruction or gangrene; K29.50 Unspecified chronic gastritis without bleeding; F10.10 Alcohol abuse, uncomplicated; I10 Essential (primary) hypertension; E78.5 Hyperlipidemia, unspecified; F41.1 Generalized anxiety disorder; F33.1 Major depressive disorder, recurrent, moderate; E66.9 Obesity, unspecified; Z68.35 Body mass index [BMI] 35.0-35.9, adult
CPT/HCPCS: 43239; 88305; J2704; J7120

== ENCOUNTER 2021-04-28 14:37 | Outpatient (CLI) | payer MEDICARE, SELFPAY ==
--- NOTE | ~2021-04-28 | MR_ITS ---
EXAMINATION: MR brain/brain stem wo/w con DATE: 04/28/2021 16:08 INDICATION: Disorientation, unspecified. TECHNIQUE: Magnetic resonance imaging (MRI) of the brain and brainstem was performed without and with 17 mL MultiHance intravenous contrast. Sequences included sagittal and axial T1-weighted FSE, axial diffusion-weighted FS EPI, axial T2*-weighted GRE, axial T2-weighted FLAIR Propeller, and axial T2-we ighted Propeller. Postcontrast sequences included axial and coronal T1-weighted FSE. Apparent diffusi on coefficient (ADC) maps were created. COMPARISON: None. FINDINGS: There is no intracranial hemorrhage, acute infarction, or abnormal intracranial mass lesion . There are scattered areas of nonspecific increased T2-weighted signal intensity in the cerebral whi te matter, which is within normal limits for the patient's age. The ventricles are normal in size. Th ere is mild mucosal thickening in the ethmoid sinuses. The orbits are normal. There is a trace left m astoid effusion. IMPRESSION: 1. Normal aging brain. Reviewed, dictated and finalized at location A. INTERACTION DESIGNER IMPRESSION: 1. Normal aging brain.
[2021-04-28 15:40] LABS: Estimated Glomerular Filt Rate > 60
== END 2021-04-28 14:38 | disposition home or self-care (01) ==
LOC: ANHIMG 14:46
PROVIDERS: PCP Family Medicine; Visit Provider Family Medicine
DX: R41.0 Disorientation, unspecified (principal); F10.11 Alcohol abuse, in remission
CPT/HCPCS: 70553; A9577

== ENCOUNTER 2021-05-15 11:28 | Outpatient (CLI) | payer MEDICARE, SELFPAY ==
--- NOTE | ~2021-05-15 | XR_ITS ---
XR chest 2V DATE: 05/15/2021 11:49 INDICATION: Cough and wheezing for 7 days. History of gastroesophageal reflux. TECHNIQUE: 2 views COMPARISON: 09/04/2017 two-view chest FINDINGS: Heart size is normal. There is thoracic and abdominal aortic calcification. No hilar or med iastinal enlargement. Moderate hyperinflation of the lungs. No pulmonary infiltrate or consolidation, pleural effusion or p ulmonary vascular congestion or pneumothorax. Diffuse osteopenia. Multiple surgical clips, right upper quadrant, likely due to cholecystectomy. IMPRESSION: No active cardiopulmonary disease Status post cholecystectomy Reviewed, dictated and finalized at location A. ER CARRIER
== END 2021-05-15 11:29 | disposition home or self-care (01) ==
LOC: ANHIMG 11:34
PROVIDERS: PCP Family Medicine; Visit Provider Family Medicine
DX: R05.9 Cough, unspecified (principal); R06.2 Wheezing; Z90.49 Acquired absence of other specified parts of digestive tract
CPT/HCPCS: 71046

== ENCOUNTER → 2021-05-16 00:13 | Outpatient (CLI) | payer MEDICARE, SELFPAY ==
[2021-05-16 20:22] LABS: SARS-CoV-2 RNA PCR Negative
[2021-05-18 00:37] LABS: Influenza A QL RT-PCR Negative (Negative); Influenza B QL RT-PCR Negative (Negative)
== END ==
PROVIDERS: PCP Family Medicine; Visit Provider Nurse Practitioner Gerontology
DX: R50.9 Fever, unspecified (principal); Z20.822 Contact with and (suspected) exposure to COVID-19
CPT/HCPCS: 87502; C9803; U0003; U0005

== ENCOUNTER 2021-07-22 15:44 | Outpatient (CLI) | payer MEDICARE, SELFPAY ==
[2021-07-22 16:20] LABS: Basophils Absolute Auto 0.1 K/mm3 (0.0-0.1); Basophils Percent Auto 1.2 % (0.2-1.2); Eosinophils Absolute Auto 0.1 K/mm3 (0-0.3); Eosinophils Percent Auto 1.9 % (0-4.4); Immature Granulocyte Absolute 0.05 K/mm3 (0.00-0.031); Immature Granulocyte Percent A 0.7 % (0-0.5); Lymphocytes Absolute Auto 2.02 K/mm3 (0.9-3.2); Lymphocytes Percent Auto 27.8 % (18.3-44.2); Mean Corpuscular HGB Conc 33.3 g/dl (32-36); Mean Corpuscular Hemoglobin 29.5 pg (26-34); Mean Corpuscular Volume 88.4 fl (80-100); Mean Platelet Volume 10.2 fl (7.4-10.4); Monocytes Absolute Auto 0.7 K/mm3 (0.1-0.6); Monocytes Percent Auto 9.1 % (2.6-8.5); Neutrophils Absolute Auto 4.3 K/mm3 (1.3-6.7); Neutrophils Percent Auto 59.3 % (45.5-73.1); Platelet Count Result 323 k/mm3 (150-375); Red Blood Count 4.75 M/mm3 (4.2-5.4); Red Cell Distribution Width 16.5 % (11.5-14.5); White Blood Count 7.3 K/mm3 (4.5-10.0)
[2021-07-22 16:26] LABS: Appearance Urine Clear (Clear); Bilirubin Urine Negative (Negative); Blood Urine Negative (Negative); Color Urine Yellow (Yellow); Glucose Urine UA Negative (Negative); Ketones Urine Negative (Negative); Leukocyte Esterase Ur Negative LEU/UL (Negative); Nitrate Urine Negative (Negative); Protein Urine Negative (Negative); Specific Grav Ur 1.025 (1.001-1.035); Urobilinogen Urine 0.2 mg/dL (<2.0); pH Urine 5.5 (5.0-9.0)
[2021-07-22 16:34] LABS: Alanine Aminotransferase 36 U/L (4-35); Albumin Level 4.5 g/dL (3.5-5.1); Alkaline Phosphatase 138 U/L (38-126); Anion Gap 8 mmol/L (8-16); Aspartate Amino Transferase 30 U/L (14-36); Bilirubin,Total 0.4 mg/dL (0.2-1.3); Blood Urea Nitrogen 19 mg/dL (7-17); Calcium 9.6 mg/dL (8.4-10.2); Carbon Dioxide 27 mmol/L (22-30); Chloride 104 mmol/L (98-107); Estimated Glomerular Filt Rate 55; Glucose 108 mg/dL (65-110); Potassium 4.1 mmol/L (3.4-5.0); Sodium 139 mmol/L (137-145)
[2021-07-22 16:35] LABS: Bacteria Urine Trace /hpf; Mucus Urine Rare /lpf; RBC Urine 0-2 /hpf (0-2); Squamous Epithelial Cell Urine Moderate /hpf (Few); WBC Urine 0-3 /hpf
[2021-07-22 16:39] LABS: Add Urine Microscopic? YES
== END 2021-07-22 15:45 | disposition home or self-care (01) ==
LOC: ANHLAB 15:48
PROVIDERS: PCP Family Medicine; Visit Provider Nurse Practitioner Gerontology
DX: F33.1 Major depressive disorder, recurrent, moderate (principal); R41.0 Disorientation, unspecified; R44.3 Hallucinations, unspecified; R30.0 Dysuria
CPT/HCPCS: 36415; 80053; 81001; 84443; 85025

== ENCOUNTER 2021-10-09 08:59 | Outpatient (CLI) | payer MEDICARE, SELFPAY ==
--- NOTE | ~2021-10-09 | US_ITS ---
US abdomen complete EXAMINATION: US Abdomen Complete INDICATION: Elevated liver enzymes PROCEDURE: Realtime High Resolution abdomen ultrasound. COMPARISON: No prior studies for comparison FINDINGS: Gallbladder is surgically absent. Common bile duct measures 5.5 mm. Liver echotexture is increased, consistent with fatty infiltration. Pancreas within normal limits. Pancreatic tail is obscured by bowel gas. Spleen is unremarkeable. Renal echotexture is within kacy l limits bilaterally without hydronephrosis, contour deforming mass or renal stone. Right kidney kamron ures 11.3 cm. Left kidney measures 10 cm. Visualized aspects of the aorta and IVC are within normal limits. Portal vein is patent. No sonograph ic Onofre's sign indicated by the technologist. IMPRESSION: 1: Hepatic steatosis. Reviewed, dictated and finalized at location A. IMPRESSION: 1: Hepatic steatosis.
== END 2021-10-09 09:00 | disposition home or self-care (01) ==
PROVIDERS: PCP Family Medicine; Visit Provider Nurse Practitioner Gerontology
DX: R74.8 Abnormal levels of other serum enzymes (principal); K76.0 Fatty (change of) liver, not elsewhere classified
CPT/HCPCS: 76700

== ENCOUNTER 2021-10-30 14:11 | Outpatient (CLI) | payer MEDICARE, SELFPAY ==
[2021-10-30 14:44] LABS: Basophils Absolute Auto 0.1 K/mm3 (0.0-0.1); Basophils Percent Auto 0.7 % (0.2-1.2); Eosinophils Absolute Auto 0.1 K/mm3 (0-0.3); Eosinophils Percent Auto 1.4 % (0-4.4); Hematocrit 41.3 % (37.0-47.0); Hemoglobin 12.9 g/dL (12.0-15.0); Immature Granulocyte Absolute 0.05 K/mm3 (0.00-0.031); Immature Granulocyte Percent A 0.6 % (0-0.5); Lymphocytes Absolute Auto 1.52 K/mm3 (0.9-3.2); Lymphocytes Percent Auto 17.7 % (18.3-44.2); Mean Corpuscular HGB Conc 31.2 g/dl (32-36); Mean Corpuscular Hemoglobin 26.1 pg (26-34); Mean Corpuscular Volume 83.4 fl (80-100); Mean Platelet Volume 10.2 fl (7.4-10.4); Monocytes Absolute Auto 0.6 K/mm3 (0.1-0.6); Monocytes Percent Auto 6.4 % (2.6-8.5); Neutrophils Absolute Auto 6.3 K/mm3 (1.3-6.7); Neutrophils Percent Auto 73.2 % (45.5-73.1); Platelet Count Result 304 k/mm3 (150-375); Red Blood Count 4.95 M/mm3 (4.2-5.4); Red Cell Distribution Width 15.3 % (11.5-14.5); White Blood Count 8.6 K/mm3 (4.5-10.0)
[2021-10-30 14:48] LABS: Ammonia < 9 umol/L (9-30)
[2021-10-30 15:51] LABS: Erythrocyte Sedimentation Rate 14 mm/hr (0-20)
[2021-10-30 16:52] LABS: Alanine Aminotransferase 45 U/L (6-35); Albumin Level 4.4 g/dL (3.5-5.1); Alkaline Phosphatase 136 U/L (38-126); Anion Gap 9 mmol/L (8-16); Aspartate Amino Transferase 34 U/L (14-36); Bilirubin,Total 0.4 mg/dL (0.2-1.3); Blood Urea Nitrogen 18 mg/dL (7-17); Calcium 9.2 mg/dL (8.4-10.2); Carbon Dioxide 24 mmol/L (22-30); Chloride 107 mmol/L (98-107); Estimated Glomerular Filt Rate 44; Glucose 124 mg/dL (65-110); Sodium 140 mmol/L (137-145)
[2021-11-02 11:59] LABS: Vitamin B6 96.3 ng/mL (2.1-21.7)
[2021-11-02 19:51] LABS: GGT 233 U/L (3-65)
== END 2021-10-30 14:12 | disposition home or self-care (01) ==
LOC: ANHLAB 14:16
PROVIDERS: PCP Family Medicine; Visit Provider Nurse Practitioner Gerontology
DX: F10.20 Alcohol dependence, uncomplicated (principal); F33.1 Major depressive disorder, recurrent, moderate; R41.0 Disorientation, unspecified; R44.3 Hallucinations, unspecified
CPT/HCPCS: 36415; 80053; 82140; 82607; 82977; 84207; 84443; 85025; 85652

== ENCOUNTER 2021-11-12 13:24 | Outpatient (CLI) | payer MEDICARE, SELFPAY ==
--- NOTE | ~2021-11-12 | CT_ITS ---
EXAMINATION: CT abdomen w con DATE: 11/12/2021 14:34 INDICATION: Alcohol abuse TECHNIQUE: Computed tomography (CT) of the abdomen was performed with 100 CC Omnipaque 300 intravenou s contrast. Automated exposure control and iterative reconstruction technique were employed. Exam dos e: 492.88 mGy-cm total exam DLP. COMPARISON: 02/01/2007 CT abdomen 10/09/2021 complete abdominal ultrasound examination FINDINGS: Calcified pleural plaque along the posterolateral right lower thorax in the right costophre anuradha gutter. Consider prior asbestos exposure. The lung bases are clear of infiltrate or consolidation. Mild cardiomegaly. No pericardial or pleural effusion. Moderate size hiatal hernia. Normal morphology of the adrenal glands. Diffuse hepatic steatosis. No hepatic space-occupying mass lesion is detected. No surface nodularity is noted. No bile duct dilatation. Status post cholecystectomy. Occasional pancreatic calcifications consistent with chronic pancreatitis. No pancreatic duct dilatat ion or pancreatic mass lesion. Splenic size is within normal limits. No renal mass lesion or calculus or hydronephrosis. Calcification of the abdominal aorta. Prominent calcification at the origin of the right renal artery . No intraperitoneal or retroperitoneal mass lesion or adenopathy or ascites. Mild diverticulosis of the descending colon. No bowel obstruction or intraperitoneal free air is dete cted. Small fat-containing umbilical hernia. No suspicious osteolytic or osteosclerotic lesions. IMPRESSION: Hepatic steatosis Chronic pancreatitis Status post cholecystectomy Diverticulosis of colon Posterolateral right lower chest calcified pleural plaque; recommend clinical correlation for possibl e prior asbestos exposure Reviewed, dictated and finalized at [facility]. Reviewed, dictated and finalized at location [facility]. IMPRESSION: Hepatic steatosis Chronic pancreatitis Status post cholecystectomy Diverticulosis of colon Posterolateral right lower chest calcified pleural plaque; recommend clinical c orrelation for possible prior asbestos exposure
== END 2021-11-12 13:25 | disposition home or self-care (01) ==
PROVIDERS: PCP Family Medicine; Visit Provider Nurse Practitioner Gerontology
DX: F10.20 Alcohol dependence, uncomplicated (principal); K76.0 Fatty (change of) liver, not elsewhere classified; R74.8 Abnormal levels of other serum enzymes
CPT/HCPCS: 74160; Q9967

== ENCOUNTER 2021-11-26 09:52 | Outpatient (CLI) | payer MEDICARE, SELFPAY ==
[2021-11-26 11:49] LABS: Alanine Aminotransferase 41 U/L (6-35); Albumin Level 4.4 g/dL (3.5-5.1); Alkaline Phosphatase 125 U/L (38-126); Aspartate Amino Transferase 35 U/L (14-36); Bilirubin,Total 0.5 mg/dL (0.2-1.3)
[2021-11-26 12:03] LABS: Iron 76 ug/dL (37-170)
[2021-11-26 12:12] LABS: Percent Iron Saturation 20 % (20-50)
[2021-11-30 14:26] LABS: Ceruloplasmin 33 mg/dL (18-53)
[2021-12-01 22:44] LABS: Mitochondrial (M2) Ab (IgG) <=20.0 U (<=20.0)
[2021-12-03 13:52] LABS: ALT 32 U/L (6-29); Alpha-2-Macroglobulin 189 mg/dL (106-279); Apolipoprotein A1 186 mg/dL (101-198); Fibrosis Score 0.18; Fibrosis Stage F0; GGT 164 U/L (3-65); Haptoglobin 243 mg/dL (43-212); Necroinflammat Act Grade A0; Total Bilirubin 0.3 mg/dL (0.2-1.2)
== END 2021-11-26 09:53 | disposition home or self-care (01) ==
PROVIDERS: PCP Family Medicine; Visit Provider Internal Medicine Gastroenterology
DX: R74.8 Abnormal levels of other serum enzymes (principal); F10.20 Alcohol dependence, uncomplicated
CPT/HCPCS: 36415; 80076; 81596; 82104; 82390; 82728; 83520; 83540; 83550

== ENCOUNTER 2021-12-17 12:50 | Outpatient (CLI) | payer MEDICARE, SELFPAY ==
--- NOTE | 2021-12-18 10:01 | WPDNEUROLOGY ---
Neurology EEG Report General Information Date of Study: 12/17/21
--- NOTE | 2021-12-18 10:16 | WPDNEUROLOGY ---
Neurology EEG Report General Information Date of Study: 12/17/21 TEST EEG DIAGNOSIS disorientation CONDITION OF RECORDING awake drowsy and sleep EEG NUMBER [id number] CLINICAL HISTORY patient reports a few months ago she lost consciousness and hit her head and has been having some forgetfulness. EEG DESCRIPTION basic resting occipital frequency consists of small amount of low voltage 9 to 11 hertz per 2nd alpha admixed with low-voltage 15 to 18 hertz per 2nd beta. Low-voltage beta activity seen diffusely during drowsiness admixed with waxing and waning posterior alpha rhythm. Bilateral symmetrical sleep activity seen during sleep with symmetrical spindles. Hyperventilation not done. Photic stimulation produced normal drive. Non paroxysmal. Nonfocal. Nonlateralizing. IMPRESSION Normal record
== END 2021-12-17 12:51 | disposition home or self-care (01) ==
LOC: ANHNEURO 12:53
PROVIDERS: PCP Family Medicine; Visit Provider Psychiatry & Neurology Neurology
DX: R41.0 Disorientation, unspecified (principal)
CPT/HCPCS: 95816

== ENCOUNTER 2023-02-26 20:21 | Emergency (ER) | payer MEDICARE, SELFPAY ==
[2023-02-26 20:31] VITALS: BP 170/61; PULSE 85; RESP 15; TEMP 36.9; O2SAT 99
--- NOTE | 2023-02-26 21:11 | PC.NURSE ---
Pt is a/ox4. denies any intention of harming self or harming others.
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
[2023-02-26 22:55] LABS: Basophils Absolute Auto 0.1 K/mm3 (0.0-0.1); Basophils Percent Auto 0.7 % (0.2-1.2); Eosinophils Absolute Auto 0.2 K/mm3 (0-0.3); Eosinophils Percent Auto 1.6 % (0-4.4); Hematocrit 43.7 % (37.0-47.0); Hemoglobin 13.8 g/dL (12.0-15.0); Immature Granulocyte Absolute 0.05 K/mm3 (0.00-0.031); Immature Granulocyte Percent A 0.5 % (0-0.5); Lymphocytes Absolute Auto 1.87 K/mm3 (0.9-3.2); Lymphocytes Percent Auto 17.9 % (18.3-44.2); Mean Corpuscular HGB Conc 31.6 g/dl (32-36); Mean Corpuscular Hemoglobin 27.2 pg (26-34); Mean Platelet Volume 10.5 fl (7.4-10.4); Monocytes Absolute Auto 0.6 K/mm3 (0.1-0.6); Monocytes Percent Auto 5.8 % (2.6-8.5); Neutrophils Absolute Auto 7.7 K/mm3 (1.3-6.7); Neutrophils Percent Auto 73.5 % (45.5-73.1); Platelet Count Result 349 k/mm3 (150-375); Red Blood Count 5.08 M/mm3 (4.2-5.4); White Blood Count 10.5 K/mm3 (4.5-10.0)
[2023-02-26 23:12] LABS: Acetaminophen < 10 ug/mL (10-30); Alanine Aminotransferase 28 U/L (6-35); Albumin Level 4.2 g/dL (3.5-5.1); Alkaline Phosphatase 131 U/L (38-126); Anion Gap 10 mmol/L (8-16); Aspartate Amino Transferase 20 U/L (14-36); Bilirubin,Total 0.4 mg/dL (0.2-1.3); Blood Urea Nitrogen 19 mg/dL (7-17); Calcium 9.3 mg/dL (8.4-10.2); Carbon Dioxide 23 mmol/L (22-30); Chloride 106 mmol/L (98-107); Estimated CRCL calculation 46 ml/min; Estimated Glomerular Filt Rate 54; Ethanol < 10 mg/dL (<10); Glucose 144 mg/dL (65-110); Potassium 4.2 mmol/L (3.4-5.0); Salicylate < 1.0 mg/dL (2-20); Sodium 139 mmol/L (137-145)
[2023-02-26 23:48] LABS: Thyroid Stimulating Hormone 0.814 uIU/mL (0.465-4.680)
[2023-02-27 00:45] LABS: Appearance Urine Cloudy (Clear); Bacteria Urine Rare /hpf; Bilirubin Urine Negative (Negative); Blood Urine Negative (Negative); Color Urine Yellow (Yellow); Glucose Urine UA Negative (Negative); Ketones Urine Negative (Negative); Leukocyte Esterase Ur Trace LEU/UL (Negative); Need Manual Microscopic Reviewed; Nitrate Urine Negative (Negative); Non Pathogenic Casts 0-2; Protein Urine Negative (Negative); Specific Grav Ur 1.024 (1.001-1.035); Squamous Epithelial Cell Urine Moderate /hpf (Few); WBC Urine 0-5 /hpf
[2023-02-27 00:46] LABS: Add Urine Microscopic? YES
[2023-02-27 00:50] LABS: Amphetamine Screen Urine Negative (Negative); Barbiturate Screen Urine Negative (Negative); Benzodiazepines Screen Urine Negative (Negative); Cannabinoid Screen Urine Negative (Negative); Cocaine Screen Urine Negative (Negative); Methadone Screen Urine Negative (Negative); Opiate Screen Urine Negative (Negative); Phencyclidine Screen Urine Negative (Negative)
[2023-02-27 01:45] LABS: Influenza A QL RT-PCR Negative (Negative); Influenza B QL RT-PCR Negative (Negative); RSV RNA, RT-PCR Negative (Negative); SARS-CoV-2 RNA PCR Negative (Negative)
--- NOTE | 2023-02-27 01:45 | PC.NURSE ---
Crisis spoke with and evaluated pt and set up a safety plan with her.
[2023-02-27] MEDS: LIDOCAINE HCL 1% LOCAL INJ 10 ML VIAL (01:58)
[2023-02-27 02:15] VITALS: BP 136/96; PULSE 72; RESP 16; O2SAT 96
== END 2023-02-27 02:18 | disposition home or self-care (01) ==
PROVIDERS: Emergency Provider Student in an Organized Health Care Education/Training Program; PCP Family Medicine
DX: S61.412A Laceration without foreign body of left hand, initial encounter (principal); F03.93 Unspecified dementia, unspecified severity, with mood disturbance; F32.9 Major depressive disorder, single episode, unspecified; Z11.52 Encounter for screening for COVID-19; I10 Essential (primary) hypertension; E78.5 Hyperlipidemia, unspecified; K21.00 Gastro-esophageal reflux disease with esophagitis, without bleeding; K44.9 Diaphragmatic hernia without obstruction or gangrene; M17.9 Osteoarthritis of knee, unspecified; F41.1 Generalized anxiety disorder; F10.10 Alcohol abuse, uncomplicated; Y90.0 Blood alcohol level of less than 20 mg/100 ml; F51.04 Psychophysiologic insomnia; Z85.3 Personal history of malignant neoplasm of breast; Z79.82 Long term (current) use of aspirin; Z79.899 Other long term (current) drug therapy; W27.2XXA Contact with scissors, initial encounter
CPT/HCPCS: 12001; 36415; 80053; 80307; 81001; 84443; 85025; 87637; 99284

== ENCOUNTER 2023-04-13 14:12 | Outpatient (CLI) | payer MEDICARE, SELFPAY ==
--- NOTE | ~2023-04-13 | US_ITS ---
EXAMINATION: US venous doppler [facility] DATE: 04/13/2023 15:16 INDICATION: Lower limb edema. TECHNIQUE: Grayscale ultrasound images without and with compression and Doppler ultrasound images of the bilateral lower extremity veins were obtained. COMPARISON: Ultrasound 10/08/2020 FINDINGS: The visualized portions of right common femoral vein, profunda (deep) femoral vein, femoral vein, pop liteal vein, peroneal veins, posterior tibial veins, and greater saphenous vein outflow are patent. The visualized portions of left common femoral vein, profunda femoral vein, femoral vein, popliteal v ein, peroneal veins, posterior tibial veins, and greater saphenous vein outflow are patent. IMPRESSION: 1. No deep venous thrombosis. Reviewed, dictated and finalized at location E. 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
--- NOTE | 2023-04-13 15:29 | ECG_ITS ---
Measurements Intervals [place] Rate: 61 P: 63 IA: 158 QRS: 18 QRSD: 91 T: 33 QT: 461 QTc: 466 Interpretive Statements SINUS RHYTHM NORMAL ECG COMPARED TO ECG 03/14/2020 09:31:40 NO SIGNIFICANT CHANGES Electronically Signed On 04-13-2023 16:09:37 SPECIMEN PROCESSOR by Flex Marquez M.D.
== END 2023-04-13 14:13 | disposition home or self-care (01) ==
PROVIDERS: PCP Family Medicine; Visit Provider Nurse Practitioner
DX: R60.0 Localized edema (principal); R00.2 Palpitations
CPT/HCPCS: 93005; 93970

== ENCOUNTER 2023-11-29 15:31 | Outpatient (CLI) | payer MEDICARE, SELFPAY ==
--- NOTE | ~2023-11-29 | MM_ITS ---
EXAMINATION: MM screening sonu BI w susannah HISTORY: Screening TECHNIQUE: Craniocaudal and mediolateral oblique 3-D tomosynthesis images were obtained and synthetic 2-D images were generated. CAD analysis was submitted and interpreted. COMPARISON: Comparison to multiple prior studies sequentially, with oldest reviewed study dated 03/26. BREAST PARENCHYMAL COMPOSITION: Not dense: There are scattered areas of fibroglandular density. FINDINGS: There is no evidence of suspicious mass, calcification, or architectural distortion to sugg est malignancy in either breast. There has been no suspicious interval change. IMPRESSION: 1. No mammographic evidence of malignancy. 2. Recommend routine screening mammography in one year. BI-RADS Category 1: Negative Reviewed, dictated and finalized at location B.
== END 2023-11-29 15:32 | disposition home or self-care (01) ==
PROVIDERS: PCP Family Medicine; Visit Provider Family Medicine Sports Medicine
DX: Z12.31 Encounter for screening mammogram for malignant neoplasm of breast (principal)
CPT/HCPCS: 77063; 77067

== ENCOUNTER 2024-04-23 11:05 | Emergency (ER) | payer MEDICARE, SELFPAY ==
--- NOTE | ~2024-04-23 | US_ITS ---
EXAMINATION: US venous doppler [facility] DATE: 04/23/2024 12:58 INDICATION: Left lower limb pain and swelling TECHNIQUE: Grayscale ultrasound images without and with compression and Doppler ultrasound images of the left lower extremity veins were obtained. COMPARISON: None. FINDINGS: The visualized portions of left common femoral vein, profunda (deep) femoral vein, femoral vein, popl iteal vein, peroneal veins, posterior tibial veins, gastrocnemius vein and greater saphenous vein out flow are patent. IMPRESSION: 1. No deep venous thrombosis in the left lower limb. Reviewed, dictated and finalized at location B. ERCIAL MANAGEMENT ACCOUNTANT
[2024-04-23 11:23] VITALS: BP 156/64; PULSE 86; RESP 16; TEMP 36.5; O2SAT 97
--- NOTE | 2024-04-23 13:22 | ED.GENADULT ---
HPI - General Adult General Chief complaint: Extremity Problem,Nontraumatic Stated complaint: left leg swelling R/O DVT Time Seen by Provider: 04/23/24 11:59 History of Present Illness HPI narrative: patient is a 73-year-old female who presents ER with swelling to left leg. Ongoing over last week. Initiate when she had cramping in the calf that lasted a day. No chest pain or shortness of breath. No history DVT. Takes a baby aspirin. No blood thinners. Patient with mild expressive aphasia but and dementia does a good job giving her history with side her. Related Data Home Medications ?Medication ?Instructions ?Recorded ?Confirmed ?Last Taken ?Type omega-3 339mg-dha,epa 1 cap PO DAILY 01/04/20 04/06/22 02/03/21 History 314mg-fish,krill 500mg-lutein,zeax 24mg capsule (Megared Advanced Total Body) Lactobacillus 1 cap PO DAILY 03/14/20 04/06/22 02/03/21 History acidophilus-Bifidobac.animalis 2.5 billion cell capsule (Daily Probiotic) diltiazem HCl 180 mg 180 mg PO DAILY 02/04/21 04/06/22 02/03/21 History capsule,extended release 24 hr cholecalciferol (vitamin D3) 125 125 mcg PO DAILY 04/21/21 04/06/22 Unknown History mcg (5,000 unit) capsule omega 5-noe-otz-fish oil 60 mg-90 1 cap PO DAILY 04/21/21 04/06/22 Unknown History mg-500 mg capsule aspirin 81 mg capsule 81 mg PO DAILY 04/06/22 04/06/22 Unknown History mecobalamin (vitamin B12) 5,000 mcg PO 04/06/22 04/06/22 Unknown History mcg disintegrating tablet Allergies Allergy/AdvReac Type Severity Reaction Status Date / Time Sulfa (Sulfonamide Allergy Unknown SWELLING/RA Verified 04/23/24 11:59 Antibiotics) SH Review of Systems Constitutional: Constitutional: Reports no additional constitutional complaints Cardiovascular: Cardiovascular: Reports no additional cardiovascular complaints Respiratory: Respiratory: Reports no additional respiratory complaints Musculoskeletal: Musculoskeletal: Denies arthralgias and Denies joint swelling Comments: Left leg swelling PMFSH Past Medical History Medical History Acute non-recurrent maxillary sinusitis Acute stress reaction Alcohol use disorder, mild, abuse Arthropathy Benign hypertension without CHF BMI 30.0-30.9,adult BMI 34.0-34.9,adult Breast lump in female Bronchitis Chronic insomnia Colon cancer screening Complex tear of medial meniscus of left knee as current injury Constipation by delayed colonic transit Degenerative joint disease of knee Dietary counseling and surveillance (10/03/18) Effusion, left knee Esophagitis Essential (primary) hypertension FHx: breast cancer JOSE (generalized anxiety disorder) JOSE (generalized anxiety disorder) Gastro-esophageal reflux disease without esophagitis GERD (gastroesophageal reflux disease) GERD with esophagitis Hiatal hernia Hyperlipidemia MDD (major depressive disorder), recurrent episode, moderate Medial meniscus tear Mixed hyperlipidemia Nausea Nausea and vomiting in adult Postmenopausal Primary osteoarthritis of left knee Psychophysiological insomnia Schatzki's ring Urticaria Weight gain Surgical History Surgical History H/O: hysterectomy History of cholecystectomy History of left knee replacement left knee [facility] February 2020 Family History Family History Father Family history of premature coronary heart disease, Onset Age: 63 Sibling Patient's brother is in good health Mother Family history of malignant neoplasm of breast in first degree relative, Onset Age: 64 Patient's mother is Other Depression Diabetes mellitus Family history of cardiovascular disease Family history of malignant neoplasm Hypertension Social History Social History (Updated 09/08/22 @ 09:12 by Melissa Fabian MA) Social History: Smoking status: Never smoker Second hand tobacco smoke exposure: No Alcohol intake: current Drinks per week: 2 Substance use: never Substance use type: does not use Lack of Transportation: No Lack of Food: Never True Current Housing: I Have Housing Concerned About Future Housing: No Difficulty Paying Gas/Electric Bills: No Difficulty Paying for Meds: No Currently Unemployed: YES Education: High School Diploma/GED Difficulty w/ Childcare or Family Care: No Living arrangements: with family Occupation/Education: retired Gender identity (if verbalized by the patient): Female Sexual Orientation (if Verbalized by the Patient): Straight or Heterosexual Spiritual care concerns: No Exam Narrative: GENERAL: Well-appearing, well-nourished, and in no acute distress. HEAD: Normocephalic, atraumatic. ENT: Mucous membranes moist.. EXTREMITIES: Normal range of motion. Contusion posterior left calf with some yellow bruising over the anterior bowles with nonpitting edema. The left calf is larger than the right calf. SKIN: Warm, dry, no rash. NEURO: Alert and oriented x3. mild expressive aphasia. PSYCH: Normal mood and affect. Course Course Emergency Course: informed of results. Likely muscle cramp/strain with bruising/hematoma. D/c. Vital Signs Vital signs: Vital Signs Temperature 97.7 F 04/23/24 11:23 Pulse Rate 86 04/23/24 11:23 Respiratory Rate 16 04/23/24 11:23 Blood Pressure 156/64 H 04/23/24 11:23 Pulse Oximetry 97 04/23/24 11:23 Oxygen Delivery Room Air 04/23/24 11:23 Temperature 97.7 F 04/23/24 11:23 Pulse Rate 86 04/23/24 11:23 Respiratory Rate 16 04/23/24 11:23 Blood Pressure 156/64 H 04/23/24 11:23 Pulse Oximetry 97 04/23/24 11:23 Oxygen Delivery Room Air 04/23/24 11:23 Medical Decision Making Vital Signs Vital Signs: Vital Signs Temperature 97.7 F 04/23/24 11:23 Pulse Rate 86 04/23/24 11:23 Respiratory Rate 16 04/23/24 11:23 Blood Pressure 156/64 H 04/23/24 11:23 Pulse Oximetry 97 04/23/24 11:23 Oxygen Delivery Room Air 04/23/24 11:23 Temperature 97.7 F 04/23/24 11:23 Pulse Rate 86 04/23/24 11:23 Respiratory Rate 16 04/23/24 11:23 Blood Pressure 156/64 H 04/23/24 11:23 Pulse Oximetry 97 04/23/24 11:23 Oxygen Delivery Room Air 04/23/24 11:23 Imaging Data Radiologist's impression: ITS Impressions Venous Doppler Study 04/23/24 12:59 IMPRESSION: 1. No deep venous thrombosis in the left lower limb. Discharge Plan Discharge Clinical Impression: Pain of left calf Patient Disposition: Home, Self-Care Condition: Stable Instructions: Muscle Strain (ED), Contusion in Adults (ED) Additional Instructions: Return to the ER if you have worsening swelling, you develop chest pain with shortness of breath, or you have additional concerns. Patient Language: Sri Lankan Prescriptions: No Action Megared Advanced Total Body [phone] mg capsule 1 cap PO DAILY omega 6-kon-zpl-fish oil 60-90-500 mg capsule 1 cap PO DAILY cholecalciferol (vitamin D3) 125 mcg (5,000 unit) capsule 125 mcg PO DAILY aspirin 81 mg capsule 81 mg PO DAILY mecobalamin (vitamin B12) 5,000 mcg tablet,disintegrating PO diltiazem HCl 180 mg capsule,extended release 24hr 180 mg PO DAILY Daily Probiotic 2.5 billion cell Capsule 1 cap PO DAILY trazodone 50 mg tablet See Rx Instructions .ROUTE .COMPLEX Qty: 30 0RF Dose Instruction: TAKE 1 TABLET ORALLY EVERY DAY AT BEDTIME NEEDED FOR INSOMNIA Rx Instructions: TAKE 1 TABLET ORALLY EVERY DAY AT BEDTIME NEEDED FOR INSOMNIA donepezil [Aricept] 10 mg tablet See Rx Instructions PO .COMPLEX Qty: 30 5RF Rx Instructions: Take 1/2 tablet at bedtime for 2 weeks then increase to 1 tablet at bedtime orally; valsartan 40 mg tablet See Rx Instructions .ROUTE .COMPLEX Qty: 180 3RF Dose Instruction: TAKE 1 TABLET BY MOUTH TWICE A DAY Rx Instructions: TAKE 1 TABLET BY MOUTH TWICE A DAY esomeprazole magnesium 40 mg capsule,delayed release(DR/EC) See Rx Instructions .ROUTE .COMPLEX Qty: 90 0RF Dose Instruction: TAKE 1 CAPSULE BY MOUTH EVERY DAY Rx Instructions: TAKE 1 CAPSULE BY MOUTH EVERY DAY Follow-up/Referrals: April,Manoj Massey MD [Primary Care Provider] - 1 Week
[2024-04-23 13:34] VITALS: BP 124/76; PULSE 62; RESP 20; TEMP 36.6; O2SAT 98
== END 2024-04-23 13:35 | disposition home or self-care (01) ==
PROVIDERS: Emergency Provider Emergency Medicine; PCP Family Medicine
DX: M79.662 Pain in left lower leg (principal); I69.920 Aphasia following unspecified cerebrovascular disease; R47.01 Aphasia; F03.90 Unspecified dementia, unspecified severity, without behavioral disturbance, psychotic disturbance, mood disturbance, and anxiety; I10 Essential (primary) hypertension; E78.2 Mixed hyperlipidemia; K21.9 Gastro-esophageal reflux disease without esophagitis; K44.9 Diaphragmatic hernia without obstruction or gangrene; F32.9 Major depressive disorder, single episode, unspecified; F41.1 Generalized anxiety disorder; F51.04 Psychophysiologic insomnia; M17.12 Unilateral primary osteoarthritis, left knee; Z90.710 Acquired absence of both cervix and uterus; Z90.49 Acquired absence of other specified parts of digestive tract; Z79.82 Long term (current) use of aspirin; Z79.899 Other long term (current) drug therapy
CPT/HCPCS: 93971; 99284

== ENCOUNTER 2024-06-15 08:43 | Inpatient (IN) | payer MEDICARE, SELFPAY ==
[2024-06-15] VITALS (33 sets, daily range): BP systolic 115–167; BP diastolic 60–89; PULSE 86–103; RESP 16–25; TEMP 36.3–36.6; O2SAT 88–100
--- NOTE | ~2024-06-15 | CT_ITS ---
EXAMINATION: CTA chest PE protocol DATE: 06/15/2024 12:07 INDICATION: Shortness of breath TECHNIQUE: Computed tomography (CT) pulmonary angiogram of the chest was performed with 100 mL Omnipa que-350 intravenous contrast. Additional 3D reconstructions utilizing coronal maximum intensity proje ction (MIP) were performed. Automated exposure control and iterative reconstruction technique were em ployed. The dose-length product was 539.52 mGy-cm. COMPARISON: None FINDINGS: There are multiple pulmonary arterial filling defects consistent with pulmonary emboli with large jane t burden. These include nonocclusive pulmonary emboli extending into all of the segmental pulmonary a rteries and into a few of the more peripheral subsegmental pulmonary arteries in both lungs. A few sm all calcite nodules at the bilateral lung bases consistent with old granulomatous disease. No pneumon ia, pulmonary edema, pulmonary infarct or pleural effusion. Cardiomegaly with right ventricular and r ight atrial enlargement. There is mild leftward bowing of the ventricular septum consistent with righ t heart strain. No pericardial effusion. No pericardial effusion. Thoracic aorta is normal in caliber with no dissection. No pathologically enlarged thoracic lymphadenopathy. Moderate-sized sliding-type hiatal hernia. Cholecystectomy clips the gallbladder fossa. Mild thoracic dextrocurvature with moder ate spondylosis. IMPRESSION: 1. Extensive pulmonary emboli throughout both lungs with high clot burden and with findings of second lexus right heart strain including right ventricular and atrial enlargement. Dr. Trujillo discussed the se findings with Dr. Negron at 12:20 PM. 2. Moderate-sized sliding-type hiatal hernia. Reviewed, dictated and finalized at location [facility]. [facility] [employer] IMPRESSION: 1. Extensive pulmonary emboli throughout both lungs with high clot burden and w ith findings of secondary right heart strain including right ventricular and at rial enlargement. Dr. Trujillo discussed these findings with Dr. Negron at 12: 20 PM. 2. Moderate-sized sliding-type hiatal hernia.
--- NOTE | ~2024-06-15 | US_ITS ---
EXAMINATION: US venous doppler [facility] DATE: 06/17/2024 12:13 INDICATION: Bilateral pulmonary emboli. TECHNIQUE: Grayscale ultrasound images without and with compression and Doppler ultrasound images of the bilateral lower extremity veins were obtained. COMPARISON: Ultrasound 04/23/2024 FINDINGS: The visualized portions of right common femoral vein, profunda (deep) femoral vein, femoral vein, pop liteal vein, peroneal veins, posterior tibial veins, and greater saphenous vein outflow are patent. The visualized portions of left common femoral vein, profunda femoral vein, femoral vein, popliteal v ein, peroneal veins, posterior tibial veins, and greater saphenous vein outflow are patent. IMPRESSION: 1. No deep venous thrombosis. Reviewed, dictated and finalized at location A. SYSTEMS ANALYST
--- NOTE | 2024-06-15 08:47 | ECG_ITS ---
Test Date: 2024-06-15 08:51:05 Measurements Intervals [place] Rate: 95 P: 55 CO: 153 QRS: -6 QRSD: 83 T: 56 QT: 386 QTc: 487 Interpretive Statements SINUS RHYTHM DELAYED PRECORDIAL R/S TRANSITION BORDERLINE ST ABNORMALITY- HIGH LATERAL LEADS BASELINE ARTIFACT- I, II, III, AVR, AVL, AVF BORDERLINE ECG No previous ECG available for comparison Electronically Signed On 06-15-2024 08:52:22 LEAD SOFTWARE TESTER by Klever Newman D.O.
--- OUTSIDE RECORDS SUMMARY | 2024-06-15 08:53 | XMS_ITS | Patient Health Record ---
Author Organization [facility] Address [address] [facility] [place]. [address] [place] [id number] Care Team Providers Care Industrial Cleaning Technician Name Role Phone Manoj Chen MD Primary Care Provider Christopher Payne Unavailable [phone] Allergies Allergen (clinical drug ingredient) Drug/Non Drug Allergy documented on EMR Reaction Allergy Type Onset Date Status Substance with sulfonamide structure and antibacterial mechanism of action (substance) Sulfa Antibiotics Unknown Drug Allergy Active Reason For Referral No Information Medications Medication SIG (Take, Route, Frequency, Duration) Notes Start Date End Date Status Omeprazole 40 MG as directed Orally Active Memantine HCl Active Valsartan Active Carvedilol 6.25 MG TAKE 1 TABLET BY TWICE A DAY WITH FOOD FOR 30 DAYS for 30 Active traZODone HCl Active dilTIAZem HCl Active Donepezil HCl Active Escitalopram Oxalate Active OTC/Vitamins ASA, Vit B12 Acti ve Atorvastatin Calcium Active Social History Tobacco Use: Social History Observation Description Date Details (start date - stop date) Never Smoker NA - NA Tobacco Use/Smoking Question Answer Notes Are you a nonsmoker Problems Problem Type SNOMED Code ICD Code Onset Dates Problem Status W/U Status Risk Notes Problem 27858127 Alcohol dependence, uncomplicated (F10.20) Active confirmed Problem 75179542 Other Alzheimer' s disease (G30.8) Active confirmed Problem 29608731 Esophageal varic es without bleeding (I85.00) Active confirmed Problem 632322695 Diverticulosis o f large intestine without perforation or abscess without bleeding (K57.30) Active confirmed Problem 335267934 Alcoholic cirrhosis of liver without ascites (K70.30) Active confirmed Problem 835142464903345 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) Active confirmed Problem 356265296 Personal history of colonic polyps (Z86.010) Active confirmed Problem 249220591 GERD (gastroesophageal reflux disease) (K21.9) Active confirmed Problem 258474245 History of colon polyps (Z86.010) Active confirmed Problem 61172729 Dysphagia (R13.10) Active confirmed Problem 6056943619 NAFLD (nonalcoholic fatty liver disease) (K76.0) Active confirmed Problem 34600552 Cirrhosis (K74.60) Active confirmed Problem 935128910 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 [place] [address] [place] [address] 03/09/2024 Christopher Hdz Esophageal varices without bleeding I85.00 ; Alcohol-induced chronic pancreatitis K86.0 ; Alcoholic cirrhosis of liver without ascites K70.30 ; Other Alzheimer's disease G30.8 and Dementia in other diseases classified elsewhere, moderate, with mood disturbance F02.B3 [facility], [address] [place] [address] 01/04/2024 Christopher Hdz Assessments Encounter Date Diagnosis (ICD Code) Assessment Notes Treatment Notes Treatment Clinical Notes Section Notes 03/09/2024 Esophageal varices without bleeding (ICD-10 - I85.00) 1. Recommended strict abstinence from alcohol 2. Ultrasound this year for HCC screening 3. Discuss with PCP, psychiatrist, therapist and/or neurologist ongoing depression/apat hy 4. Followup in one year 03/09/2024 Alcohol-induced chronic pancreatitis (ICD-10 - K86.0) 1. Recommended strict abstinence from alcohol 2. Ultrasound this year for HCC screening 3. Discuss with PCP, psychiatrist, therapist and/or neurologist ongoing depression/apat hy 4. Followup in one year 03/09/2024 Alcoholic cirrhosis of liver without ascites (ICD-10 - K70.30) 1. Recommended strict abstinence from alcohol 2. Ultrasound this year for HCC screening 3. Discuss with PCP, psychiatrist, therapist and/or neurologist ongoing depression/apat hy 4. Followup in one year 03/09/2024 Other Alzheimer's disease (ICD-10 - G30.8) 1. Recommended strict abstinence from alcohol 2. Ultrasound this year for HCC screening 3. Discuss with PCP, psychiatrist, therapist and/or neurologist ongoing depression/apat hy 4. Followup in one year 03/09/2024 Dementia in other diseases classified elsewhere, moderate, with mood disturbance (ICD-10 - F02.B3) 1. Recommended strict abstinence from alcohol 2. Ultrasound this year for HCC screening 3. Discuss with PCP, psychiatrist, therapist and/or neurologist ongoing depression/apat hy 4. Followup in one year Plan Of Treatment Pending Test Test Name Order Date Upper Endoscopy 12/17/2022 Colonoscopy 12/17/2022 Insurance Providers Payer Name Payer Address Payer Phone Subscriber Number Group Number Insured Name Patient Relationship to Insured Coverage Start Date Coverage End Date [employer] E2 [address] [address] [place] [address] [id number] Randi Ervin Self - patient is the insured [employer] Medicare Supplement E2 [address] [place] [address] [id number] Randi Evrin Self - patient is the insured Medical (General) History Medical History History ICD Code GERD Pancreatitis Hiatal Hernia Diverticulosis Hepatitis Colon Polyps Fatty Liver Disease Hemorrhoids Vitamin D Deficiency Vitamin B12 Deficiency Hyperlipidemia Hypertension Depression/Anxiety Dementia Pre-Diabetes Alcohol Misuse Syndrome Coronary Artery Disease Stroke Hearing Loss Surgical History Surgery Date(Month/Year) Endoscopy 12/2022 Colonoscopy 12/2022 Cholecystectomy Total Hysterectomy Left Partial Knee Arthroscopy Hysterectomy Appendectomy
--- OUTSIDE RECORDS SUMMARY | 2024-06-15 08:53 | XMS_ITS | Clinical Summary ---
Author Organization [facility] [address] Address [address] [place] [address] Care Team Providers Care Barking Machine Feeder Name Role Phone Adrianna Silva MD Primary Care Provider Allergies No known active allergies Medications venlafaxine XR (EFFEXOR-XR) 75 mg 24 hr capsule Take 75 mg by mouth 2 (two) times a day 12/22/[address] (NexIUM) 40 mg capsule Take by mouth daily 12/26/2020 Active valsartan (DIOVAN) 40 mg tablet Take 40 mg by mouth 2 (two) times a day 12/22/2020 Active atorvastatin (LIPITOR) 10 mg tablet Take 10 mg by mouth daily 11/16/2020 Active ALPRAZolam (XANAX) 0.25 mg tablet Take 0.25 mg by mouth nightly as needed for anxiety Active aspirin 81 mg enteric coated tablet Take 81 mg by mouth daily Active fish oil-dha-epa 1,200-144-216 mg capsule Take by mouth Active clonazePAM (KlonoPIN) 1 mg tablet 04/21/2021 Active acetaminophen ER (TYLENOL) 650 mg 8 hr tablet Take 650 mg by mouth every 8 (eight) hours as needed for pain Active dilTIAZem CD 180 mg 24 hr capsule TAKE 1 CAPSULE BY MOUTH EVERY DAY 90 capsule 3 01/12/2022 Active Active Problems No known active problems Medical History Medical History Date Comments Hypertension Heart murmur Syncope Arrhythmia Hyperlipidemia Family History Medical History Relation Name Comments Cirrhosis Brother 1 Stroke Brother 2 Heart disease Father Stroke Father Breast cancer Mother Relation Name Status Comments Brother 1 Brother 2 Father Mother Social History Tobacco Use Types Packs/Day Years Used Date Smoking Tobacco: Never Smokeless Tobacco: Never AUDIT-C Answer Date Recorded Q1: How often do you have a drink containing alcohol? 4 or more times a week 05/01/2021 Q2: How many drinks containi ng alcohol do you have on a typical day when you are drinking? 1 or 2 Frequency of Binge Drinking Not on file 10/2021 Personal Safety Answer Date Recorded Getting School Help Needed Not on file 04/19 Comments Unknown Sex and Gender Information Value Date Recorded Sex Assigned at Not on file Legal Sex Female 6:59 AM SUPERVISOR HEAT TREATING Gender Identity Not on file Sexual Orientation Not on file Obstetrics History Last Filed Vital Signs Vital Sign Reading Time Taken Comments Blood Pressure 138/78 05/01/2021 8:47 AM SUPERVISOR HEAT TREATING Pulse 91 05/01/2021 8:47 AM SUPERVISOR HEAT TREATING Temperature 36.7 C (98.1 F) 10/10/2017 12:15 PM CDT Respiratory Rate 15 01/28/2021 9:05 AM CDT Oxygen Saturation 97% 05/01/2021 8:47 AM SUPERVISOR HEAT TREATING Inhaled Oxygen Concentration - - Weight 89.5 kg (197 lb 4.8 oz) 05/01/2021 8:47 A M SUPERVISOR HEAT TREATING Height 160 cm (5' 3 ) 05/01/2021 8:47 AM SUPERVISOR HEAT TREATING Body Mass Index 34.95 05/01/2021 8:47 AM SUPERVISOR HEAT TREATING Plan of Treatment Not on file Insurance MEDICARE [employer] Care Teams Barking Machine Feeder Relationship Specialty Start Date End Date Adrianna Silva MD [address] [facility] [address] [place] [address] PCP - General Family Medicine 05/03/17
--- OUTSIDE RECORDS SUMMARY | 2024-06-15 08:53 | XMS_ITS ---
Author Organization [facility] Address [address] [place] [address] [address] [place] [address] Care Team Providers Care Inverter And Clipper Name Role Phone Manoj Chen MD Primary Care Provider Christopher Payne Unavailable [phone] REASON FOR VISIT R/S 03/01 OV / LVM Encounters Encounter Location Date Provider Diagnosis [address] [place] [address] 01/04/2024 Christopher Hdz Plan Of Treatment No Information Progress Notes * Randi ERVIN SDOB:1950 (73 yo F)Acc No.[id number]:01/04/2024 Patient: Randi Gutiérrez :1950 A ge:73 Y S ex:Female Address:[address] [place] [address] * true * Date: Generated for Alonso verde/Reji/eTransmitting on: 0 06/15/2024 08:53 AM TYRE BUILDER
--- OUTSIDE RECORDS SUMMARY | 2024-06-15 08:53 | XMS_ITS ---
Author Organization [facility] Address [address] [place] [address] [address] [place] [address] Care Team Providers Care Mold Insert Changer Name Role Phone Manoj Chen MD Primary Care Provider Christopher Payne Unavailable [phone] REASON FOR VISIT 6 month f/u Encounters Encounter Location Date Provider Diagnosis [address] [place] [address] 03/01/2024 Christopher Hdz Plan Of Treatment No Information Progress Notes * Randi ERVIN SDOB:1950 (73 yo F)Acc No.[id number]:03/01/2024 Patient: Randi MCFADDEN Provider: Rk Hdz MD :1950 A ge:73 Y S ex:Female Date:03/01/2024 Address:[address] [place] [address] Pcp:Manoj Chen MD Subjective: * Chief Complaints: * 1 . 6 month f/u. * Medical History: Objective: * Vitals: Assessment: Plan: * Treatment: * Images: * Electronic signature of Micheal Hdz MD on 06/15/2024 at 08:53 AM DISPLAY ARTIST Sign off status: Pending * Provider: Rk Hdz MD Date: 1 05/01/2023 Generated for Natoi mehreen/Reji/eTransmitting on: 0 06/15/2024 08:53 AM DISPLAY ARTIST
--- OUTSIDE RECORDS SUMMARY | 2024-06-15 08:53 | XMS_ITS | Patient Health Summary ---
Author Organization [facility] [employer] Address [address] [address] Care Team Providers Care Venetian Blind Installer Name Role Phone Adrianna Silva MD Primary Care Provider + Note from [facility] [employer],non-owned Affiliates and Associated Physician Practices is amultiple site organization consisting of ambulatory clinics and hospital sitesin [place], [place] and [place]. This disclosure is being madepursuant to the Care Everywhere program and may not contain all information available regarding this patient. Last updated 18.[facility] [employer] Social History Tobacco Use Types Packs/Day Years Used Date Smoking Tobacco: Never Assessed Sex and Gender Information Value Date Recorded Sex Assigned at Not on file Gender Identity Not on file Sexual Orientation Not on file Procedures * GROSS + MICRO EXAM(Performed 05/24/2000) * GROSS + MICRO EXAM(Performed 05/03/2000) Results * GROSS + MICRO EXAM (05/24/2000 10:15 AM STATION ATTENDANT) Only the most recent of2 resultswithin the time period is included. Result CASE NUMBER [id number] Comment: ORDERING PHYSICIAN RAJ TOBIN SPECIMEN TYPE Uterus w/wo tubes-uterus,cervix, tubes Date 05/24/2000 Physician Danielle Gross Description 2 specimens are received in formalin, labeled with the patients name. 1-the specimen is identified as `uterus, cervix, both tubes and ovaries' and consists of a uterus with attached cervix and detached ovaries and fallopian tubes. The uterus measures 6.5 x 8 x 5.5 cm. It has been opened previously. The uterus is involved by multiple firm white fibrous nodules, many of which are protruding from the serosal surface, the largest measures 3.5 x 3.5 x 2.5 cm. The entire specimen weighs 190 gms. The cervix measures 3 x 5 x 2.5 cm. The external cervix is covered by a chávez smooth tissue. the cervical os is slit like and measures 1.1 cm in greatest dimension. The uterine wall is serially sectioned and measurs 4 cm in thickness. The endometrium measures approximately .3 cm in thickness. The myometrium is chávez,firm tissue and is involved by numerous firm white nodules. One of the nodules measuring 1.1 x 1.1 x approximately .5 cm is chávez white with areas of hemorrhage. The cervical portion is serially sectioned showing a chávez firm tissue. there are no apparent lesions or nodules noted. The 1st ovary is chávez granular and pink . The ovary measures 2.5 x 1.7 x 1.1 cm. The ovary is bisected showing chávez pink firm parenchyma with a small cyst measuring 1.2 x 1.3 x 1 cm. The occluded portion of fallopian tube is cháevz pink and tortuous. It measures 2.5 cm in length x up to .7 cm in thickness. The other ovary is chávez pink,granular and measures 3.5 x 2 x 1.4 cm. There is a small cystic structure which is ruptured, the cystic area measures 2 x .7 x 1.5 cm. The ovary is bisected and reveals a chávez firm parenchyma with a small hemorrhagic cyst with previously given dimensions. The portions of fallopian tube is chávez pink and tortuous and measures 2cm in length x up to .7 cm in thickness. Sections are submitted as follows anterior cervix-A, posterior cervix-B anterior uterus-C posterior uterus with white nodule-D, various sections of white nodule in E, ovary and fallopian tube in F and G. 2-the specimen is identified as `sebaceous cyst vulva' and consists of three pieces of chávez hair bearing skin and underlying connective tissues measuring in aggregate 3.5 x 1 x 1 cm. The specimen is serially sectioned and reveals multiple cystic areas with yellow necrotic material. The entire specimen is submitted in H and I. /[facility] Microscopic Exam Section of the cervix are in part surfaced by squamous normally maturing epithelium, in part by columnar epithelium. The endocervical glands display normal morphology. Within cellular endometrial stroma, glands displaying saw toothed appearance are present. Those glands are lined by epithelium showing hyperchromasia of nuclei and pseudostratification. Hyperplasia or malignancy is not seen. Within the myometrium leiomyomas are seen. They are composed of bundles of interlacing smooth muscle. Focal degeneration with infarction is seen. Section of the ovaries one ovary shows small follicular cyst. Second ovary shows hemorrhagic corpus luteum. Sections of both fallopian tubes are unremarkable. Sections of the vulvar cyst show fragment of tissue surfaced by squamous epithelium. Within the cyst epidermal cyst is present. Cyst wall is composed of squamous epithelium with identifiable granular layer. Cyst lumen is filled with keratin debris. Jw Diagnosis I. Uterus with bilateral ovaries and tubes A. Cervix -No pathologic diagnosis B. Endometrium -Secretory pattern C. Myometrium -Leiomyomata D. Ovaries -Follicular cyst, small -Hemorrhagic corpus luteum E. Fallopian tubes, bilateral -No pathologic diagnosis II. Vulvar cyst A. Epidermal cyst jw Chief Of Party [facility] Pathologist Kyler Malagon M.D. [place]. 05/25/2000 1349 <7> CPT code 8307/57352, [id number]/[id number] MISCELLANEOUS SAMPLES / Unknown 05/24/2000 10:15 AM STATION ATTENDANT 05/24/2000 10:16 AM STATION ATTENDANT Historical Provider MD LAB - PATHOLOGY/C YTOLOGY ORDERABLES Care Teams Venetian Blind Installer Relationship Specialty Start Date End Date Adrianna Silva MD [address] [place] [address] PCP - General 06/12/19
--- OUTSIDE RECORDS SUMMARY | 2024-06-15 08:53 | XMS_ITS | Clinical Summary ---
Author Organization [facility] Address [address] [place] [address] Phone Care Team Providers Care Cnc Machine Setter Name Role Phone Adrianna Silva MD Primary Care Provider +1- [phone] Social History Tobacco Use Types Packs/Day Years Used Date Smoking Tobacco: Never Assessed Comments Unknown Sex and Gender Information Value Date Recorded Sex Assigned at Not on file Legal Sex Female 4:08 AM CAUL DRESSER Gender Identity Not on file Sexual Orientation Not on file Plan of Treatment Health Maintenance Due Date Last Done Comments DTAP/TDAP/TD VACCINES (1 - Tdap) 12/26/1967 COLORECTAL SCREENING 1993 Colorectal Cancer Screening 1993 FIT-DNA Q 3 years 1993 FIT/FOBT Q 1 year 1993 Flex Sig/CT Colonography Q 5 years 1993 PNEUMOCOCCAL VACCINE 65+ YEARS (1 of 1 - PCV) 12/25/18 99 ZOSTER VACCINE (1 of 2) 1998 OSTEOPOROSIS SCREENING 2013 INFLUENZA VACCINE (#1) 2023 RSV VACCINE (60+ or ) (1 - 1-dose 75+ series) 12/26/2023 Insurance MEDICARE PART A AND B [employer] PPO Care Teams Cnc Machine Setter Relationship Specialty Start Date End Date Adrianna Silva MD PCP - General Family Practice 03/02/13
--- OUTSIDE RECORDS SUMMARY | 2024-06-15 08:53 | XMS_ITS | Clinical Summary ---
Author Organization [facility] [employer] Address [address] [place] [address] Care Team Providers Care Tractor Crane Operator Name Role Phone Adrianna Silva MD Primary Care Provider + Source Comments [facility] [employer]non-[facility] Affiliates and Associated Physician Practices is amultiple site organization consisting of ambulatory clinics and hospital sitesin [place] and [place]. This disclosure is being madepursuant to the Care Everywhere program and may not contain all information available regarding this patient. Last updated 18.[facility] [employer] Social History Tobacco Use Types Packs/Day Years Used Date Smoking Tobacco: Never Assessed Sex and Gender Information Value Date Recorded Sex Assigned at Not on file Gender Identity Not on file Sexual Orientation Not on file Plan of Treatment Health Maintenance Due Date Last Done Comments BONE DENSITY TESTING 1950 COLOGUARD (AGES 45-75) - COL ON CA SCREENING 1950 COLON MONITORING 1948 COLONOSCOPY - COLON CA SCREENING 1948 CT COLONOGRAPHY - COLON CA SCREENING 1950 Colorectal Cancer Screening 1950 FIT - COLON CA SCREENING 1948 FLEX SIG - COLON CA SCREENING 1948 LIPID TESTING 1950 MAMMOGRAM 1950 MEDICARE AWV 12 MONTHS 1948 HEPATITIS C SCREENING 12/21/1966 DTAP/TDAP/TD VACCINES (1 - Tdap) 12/26/1967 PNEUMOCOCCAL VACCINE 50+ (1 of 1 - PCV) 1998 ZOSTER VACCINE (1 of 2) 1998 COVID-19 VACCINE ( - 2023-2 5 season) 2023 INFLUENZA VACCINE (#1) 2023 Respiratory Syncytial Virus (RSV) Vaccine Pt: or over 60 yrs (1 - 1-dose 75+ series) 12/26/2023 DEPRESSION SCREENING 04/25/2024 HEPATITIS B VACCINE Aged Out No longe r eligible based on patient's age to complete this topic HIB VACCINE Aged Out No longer eligi ble based on patient's age to complete this topic HPV VACCINE Aged Out No longer eligi ble based on patient's age to complete this topic MENINGOCOCCAL (Group B) VACCINE Aged Out No longer eligible based on patient's age to complete this topic MENINGOCOCCAL VACCINE Aged Out No sheri adrian eligible based on patient's age to complete this topic Care Teams Tractor Crane Operator Relationship Specialty Start Date End Date Adrianna Silva MD [address] [place] [address] PCP - General 06/12/19
--- OUTSIDE RECORDS SUMMARY | 2024-06-15 08:53 | XMS_ITS | Referral Summary ---
Author Organization [facility] [employer] Address [address] [place] [address] Care Team Providers Care Pipe Fitter Ammonia Name Role Phone Adrianna Silva MD Primary Care Provider + Source Comments [facility],non-[facility] Affiliates and Associated Physician Practices is amultiple site organization consisting of ambulatory clinics and hospital sitesin [place], [place], [place] and [place]. This disclosure is being madepursuant to the Care Everywhere program and may not contain all information available regarding this patient. Last updated 18.[facility] [employer] Social History Tobacco Use Types Packs/Day Years Used Date Smoking Tobacco: Never Assessed Sex and Gender Information Value Date Recorded Sex Assigned at Not on file Gender Identity Not on file Sexual Orientation Not on file Plan of Treatment Not on file Care Teams Pipe Fitter Ammonia Relationship Specialty Start Date End Date Adrianna Silva MD [address] [place] [address] [facility] - General 06/12/19
--- OUTSIDE RECORDS SUMMARY | 2024-06-15 08:53 | XMS_ITS | Referral Summary ---
Author Organization [facility] [address] Address [address] [place] [address] Care Team Providers Care Parole Or Probation Officer Name Role Phone Adrianna Silva MD Primary [...] Active Active Problems No known active problems Social History Tobacco Use Types Packs/Day Years [...] on file Legal Sex Female 6:59 AM PAVING INSPECTOR Gender Identity Not on file Sexual Orientation Not on file Last Filed Vital Signs Vital Sign Reading Time Taken Comments Blood Pressure 138/78 05/01/2021 8:47 AM PAVING INSPECTOR Pulse 91 05/01/2021 8:47 AM PAVING INSPECTOR Temperature 36.7 C (98.1 F) 10/10/2017 12:15 PM CDT Respiratory Rate 15 01/28/2021 9:05 AM CDT Oxygen Saturation 97% 05/01/2021 8:47 AM PAVING INSPECTOR Inhaled Oxygen Concentration - - Weight 89.5 kg (197 lb 4.8 oz) 05/01/2021 8:47 A M PAVING INSPECTOR Height 160 cm (5' 3 ) 05/01/2021 8:47 AM PAVING INSPECTOR Body Mass Index 34.95 05/01/2021 8:47 AM PAVING INSPECTOR Plan of Treatment Not on file Insurance MEDICARE [id number] [facility] Care Teams Parole Or Probation Officer Relationship Specialty Start Date End Date Adrianna Silva MD [address] [facility] [address] [place] [address] PCP - General Family Medicine 05/03/17
--- OUTSIDE RECORDS SUMMARY | 2024-06-15 08:53 | XMS_ITS | Encounter Summary ---
Author Organization [facility] Address [address] [place] [address] Care Team Providers Care Sand Technologist Name Role Phone Adrianna Silva MD Primary Care Provider +1- [phone] Encounter Details Date Type Department Care Team (Latest Contact Info) Description 10/01/2002 Outpatient Historical HIS DUAL IOP Fernandez Galvan MD [address] [place] [id number] DEPRESS PSYCHOSIS-UNSPEC (Primary Dx) Social History Tobacco Use Types Packs/Day Years Used Date Smoking Tobacco: Never Assessed Comments Unknown Sex and Gender Information Value Date Recorded Sex Assigned at Not on file Legal Sex Female 4:08 AM PUBLICATIONS WRITER Gender Identity Not on file Sexual Orientation Not on file documented as of this encounter Plan of Treatment Not on file documented as of this encounter Visit Diagnoses Diagnosis Major depressive disorder, single episode, unspecified- Primary documented in this encounter Care Teams Sand Technologist Relationship Specialty Start Date End Date Adrianna Silva MD PCP - General Family Practice 03/02/13 documented as of this encounter
--- OUTSIDE RECORDS SUMMARY | 2024-06-15 08:53 | XMS_ITS ---
Author Organization [facility] Address [address] [facility] [address] [place] [address] Care Team Providers Care Personal Caregiver Name Role Phone Manoj Chen MD Primary Care Provider Christopher Payne Unavailable [phone] Allergies Allergen (clinical drug ingredient) Drug/Non Drug Allergy documented on EMR Reaction Allergy Type Onset Date Status Substance with sulfonamide structure and antibacterial mechanism of action (substance) Sulfa Antibiotics Unknown Drug Allergy Active REASON FOR VISIT Follow Up Medications Medication SIG (Take, Route, Frequency, Duration) Notes Start Date End Date Status traZODone HCl Active Donepezil HCl Active Escitalopram Oxalate Active OTC/Vitamins ASA, Vit B12 Acti ve Atorvastatin Calcium Active Omeprazole 40 MG as directed Orally Active Memantine HCl Active Valsartan Active Carvedilol 6.25 MG TAKE 1 TABLET BY TWICE A DAY WITH FOOD FOR 30 DAYS for 30 Active dilTIAZem HCl Active Social History Tobacco Use: Social History Observation Description Date Details (start date - stop date) Never Smoker NA - NA Tobacco Use/Smoking Question Answer Notes Are you a nonsmoker Problems Problem Type SNOMED Code ICD Code Onset Dates Problem Status W/U Status Risk Notes Problem 097152611 Alcoholic cirrhosis of liver without ascites (K70.30) Active confirmed Problem 04570973 Other Alzheimer's disease (G30.8) Active confirmed Problem 337114893 Dementia in other diseases classified elsewhere, moderate, with mood disturbance (F02.B3) Active confirmed Vital Signs Height 63 in 03/09/2024 Weight 218 lbs 03/09/2024 BMI 38.61 kg/m2 03/09/2024 Encounters Encounter Location Date Provider Diagnosis [facility] [address] [facility] [address] [place] [address] [place] [address] 03/09/2024 Christopher Ramgopal Esophageal varices without bleeding I85.00 ; Alcohol-induced chronic pancreatitis K86.0 ; Alcoholic cirrhosis of liver without ascites K70.30 ; Other Alzheimer's disease G30.8 and Dementia in other diseases classified elsewhere, moderate, with mood disturbance F02.B3 Assessments Encounter Date Diagnosis (ICD Code) Assessment [...] Followup in one year Plan Of Treatment Next Appt Details Follow Up: 1 Year, Reason: Progress Notes * Randi ERVIN SDOB:1950 (73 yo F)Acc No.[id number]:03/09/2024 Patient: See Randi abrams S Provider: Rk Hdz MD :1950 A ge:73 Y S ex:Female Date:03/09/2024 Address:[address] [place], [place] [id number] Pcp:Manoj Chen MD Subjective: * Chief Complaints: * F ollow Up * HPI: H PI: Randi is a pleasant 73 year old woman with a past medical history of alcohol use disorder complicated by chronic pancreatitis and compensated alcohol related cirrhosis, GERD, NAFLD. E GD in December 2022 notable for grade I esophageal varices, medium sized hiatus hernia and started her on low dose carvedilol as she had known hypertension and we thought portal pressure reduction could also provide benefit in the setting of her varices. Colonoscopy with a small ascending colon adenoma. Biopsies for celiac and microscopic colitis were negative. A t her last visit she reported she was abstinent from alcohol and was doing well. She has not had liver imaging this year for HCC screening. S he has had multiple TIA/CVA since her last visit. She has worsening speech/memory. Denies depression but states she does not want to live this way and feels hopeless. She is on antidepressants but reports feeling numb . N o jaundice, encephalopathy, pruritus, melena, hematochezia, nausea, vomiting. * ROS: G I Bleeding: Melena N o. H ematochezia N o. H ematemesis?No. A nemia N o. G I-Stomach: Nausea/Emesis N o. P ain N o. P UD N o.?Anorexia N o. G I-Esophageal: Dysphagia N o. O dynophagia N o. C hest Pain?No. G ER Sx Y es. G I-Liver/GB: Jaundice N o. H epatitis Y es. G allstones N o. P ancreatitis Y es. G I-Colon: Colitis/IBS N o. D iarrhea N o. C onstipation?No. H emorrhoids Y es. G eneral/Constitutional: Fever N o. C hills N o. W eight Loss N o.? S kin: Rash N o. P ruritus N o. I cterus N o. P hotosensitivity N o. E NT: Diplopia N o. V isual Loss N o. T innitus N o. V ertigo N o. D eafness Y es. P oor Dentition N o. H ematology: Easy Bruising N o. H emophilia N o. H ematologic Malignancy N o. L ymphadenopathy N o. H istory of Petechia N o. A nemia?No. C ardiovascular: Palpitations N o. S yncope N o. P ND N o.?YANG N o. O rthopnea N o. C hest Pain N o. R espiratory: Cough N o. S putum Production N o. H emoptysis?No. W heezing N o. T B N o. S OB Y es. N eurologic: Stroke Y es. S eizure Disorder N o. T remor N o. P aralysis N o. S yncope N o.? G enitourinary: Dysuria N o. P olyuria N o. I ncontinence N o. R enal Failure N o. H ematuria N o. M usculoskeletal: Joint Pain N o. S welling N o. S tiffness N o. M uscle Weakness N o. M yalgia N o. E ndocrine: Thyroid Disease N o. D iabetes Y es, Pre. P olyphagia N o. P olydipsia N o. P sychiatric: Delusions N o. H allucinations Y es. S uicidal Ideations Y es. A llergy/Immunology: Hives N o. C hronic Sinusitis N o. H istory of Anaphylaxis N o. * Medical History: * Surgical History: E ndoscopy olonoscopy holecystectomy Total Hysterectomy Left Partial Knee Arthroscopy Hysterectomy Appendectomy * Hospitalization/Major Diagno stic Procedure: D enies Past Hospitalization * Family History: N on-Contributory. Patient denies family history of colon cacner and colon polyps. * Social History: T obacco Use: T obacco Use/Smoking A re you a n onsmoker D rugs/Alcohol: D o you Drink Alcohol?: Did Not Disclose. Do you Smoke Marijuana?: No. * Medications: T akingOmeprazole 40 MG Capsule Delayed Release as directed Orally Memantine HCl Carvedilol 6.25 MG Tablet TAKE 1 TABLET BY MOUTH TWICE A DAY WITH FOOD FOR 30 DAYS Valsartan dilTIAZem HCl traZODone HCl Escitalopram Oxalate Donepezil HCl Atorvastatin Calcium OTC/Vitamins , Notes: ASA, Vit [id number] List reviewed and reconciled with the patientTaking Omeprazole 40 MG Capsule Delayed Release as directed Orally Taking Memantine HCl Taking Carvedilol 6.25 MG Tablet TAKE 1 TABLET BY MOUTH TWICE A DAY WITH FOOD FOR 30 DAYS Taking Valsartan Taking dilTIAZem HCl Taking traZODone HCl Taking Escitalopram Oxalate Taking Donepezil HCl Taking Atorvastatin Calcium Taking OTC/Vitamins , Notes: ASA, Vit T79Asivblatrs List reviewed and reconciled with the patient * Allergies: S ulfa Antibiotics Objective: * Vitals: H t: 63 in, Wt:218 lbs, BMI:38.61 Index. * Examination: P hysical Examination: GENERAL: A ppears stated age, in no apparent distress. SKIN: N o rash, ecchymoses, petechial, or telangiectasia.? HEENT: Normocephalic, EOMI, Nasal & buccal mucosa clear. NECK: Supple without masses., Normal Range of Motion, No jugular venous distention. LYMPH NODES: No cervical, supraclavicular, or axillary lymphadenopathy. CARDIAC: RRR without murmur, gallop, or rub. PULMONARY: Clear to auscultation and percussion bilaterally. ABDOMEN: B S positive, soft, non-tender, No masses, organomegaly, rebound, or ascites. EXTREMITIES: N o cyanosis, clubbing, or edema. NEUROLOGIC: A lert and oriented x3, No asterixis, Nonfocal examination. C QM Exceptions: Influenza Vaccine not administered: Pneumococcal Vaccine not administered: TD or Tdap vaccine not administered Zoster vaccine not administered Assessment: * Assessment: 1. E sophageal varices without bleeding - I85.00 (Primary) 2 . A lcohol-induced chronic pancreatitis - K86.0 3 . A lcoholic cirrhosis of liver without ascites - K70.30 4 . Other Alzheimer's disease - G30.8 5 . D ementia in other diseases classified elsewhere, moderate, with mood disturbance - F02.B3 1. Recommended strict abstin ence from alcohol 2. Ultrasound this year for HCC screening 3. Discuss with PCP, psychiatrist, therapist and/or neurologist ongoing depression/apathy 4. Followup in one year. Plan: * Treatment: * Procedure Codes: * Follow Up: 1 Year * Images: * RINTENDENT MARINE Sign off status: Completed true * Provider: Rk Hdz MD Date: 05/09/2023 Generated for Alonso verde/Reji/eTransmitting on: 0 06/15/2024 08:53 AM SUPERINTENDENT MARINE History and Physical Notes * Examination Category Sub-Category Detail Notes Category Not es CQM Exceptions Influenza Vaccine no t administered: Reason:: Medical Reason Pneumococcal Vaccine not administered: Reason:: Medical Reason TD or Tdap vaccine not administered Reason:: Med ical reason Zoster vaccine not administered Reason:: Medical reason Physical Examination GENERAL: Appears stated age, in no apparent distress SKIN: No rash, ecchymoses, petechial, or telangiectasia HEENT: Normocephalic, EOMI, Nasal & buccal mucosa clear NECK: Supple without chela s., Normal Range of Motion, No jugular venous distention LYMPH NODES: No cervical, supracl avicular, or axillary lymphadenopathy CARDIAC: RRR without murmur, gallop, or rub PULMONARY: Clear to auscultatio n and percussion bilaterally ABDOMEN: BS positive, soft, n on-tender, No masses, organomegaly, rebound, or ascites EXTREMITIES: No cyanosis, clubbin g, or edema NEUROLOGIC: Alert and oriented x 3, No asterixis, Nonfocal examination
--- OUTSIDE RECORDS SUMMARY | 2024-06-15 11:36 | XMS_ITS | Referral Summary ---
Author Organization [facility] Address [address] [place] [address] Care Team Providers Care Audio Visual Coordinator Name Role Phone Adrianna Silva MD Primary Care Provider + Source Comments [facility] Affiliates and Associated Physician Practices is amultiple site organization consisting of ambulatory clinics and hospital sitesin [place], [place]. This disclosure is being madepursuant to the Care Everywhere program and may not contain all information available regarding this patient. Last updated 18.[facility] Social History Tobacco Use Types Packs/Day Years Used Date Smoking Tobacco: Never Assessed Sex and Gender Information Value Date Recorded Sex Assigned at Not on file Gender Identity Not on file Sexual Orientation Not on file Plan of Treatment Not on file Care Teams Audio Visual Coordinator Relationship Specialty Start Date End Date Adrianna Silva MD [address] [place] [address] [facility] - General 06/12/19
--- OUTSIDE RECORDS SUMMARY | 2024-06-15 11:36 | XMS_ITS | Clinical Summary ---
Author Organization 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
--- OUTSIDE RECORDS SUMMARY | 2024-06-15 11:36 | XMS_ITS | Referral Summary ---
Author Organization [facility] [address] Address [address] [place] [address] Care Team Providers Care Billet Checker Name Role Phone Adrianna Silva MD Primary [...] on file Legal Sex Female 6:59 AM INORGANIC CHEMISTRY TEACHER Gender Identity Not on file Sexual Orientation Not on file Last Filed Vital Signs Vital Sign Reading Time Taken Comments Blood Pressure 138/78 05/01/2021 8:47 AM INORGANIC CHEMISTRY TEACHER Pulse 91 05/01/2021 8:47 AM INORGANIC CHEMISTRY TEACHER Temperature 36.7 C (98.1 F) 10/10/2017 12:15 PM CDT Respiratory Rate 15 01/28/2021 9:05 AM CDT Oxygen Saturation 97% 05/01/2021 8:47 AM INORGANIC CHEMISTRY TEACHER Inhaled Oxygen Concentration - - Weight 89.5 kg (197 lb 4.8 oz) 05/01/2021 8:47 A M INORGANIC CHEMISTRY TEACHER Height 160 cm (5' 3 ) 05/01/2021 8:47 AM INORGANIC CHEMISTRY TEACHER Body Mass Index 34.95 05/01/2021 8:47 AM INORGANIC CHEMISTRY TEACHER Plan of Treatment Not on file Insurance MEDICARE [employer] REPLACED BY [facility] Care Teams Billet Checker Relationship Specialty Start Date End Date Adrianna Silva MD [address] [facility] [address] [place] [address] PCP - General Family Medicine 05/03/17
--- OUTSIDE RECORDS SUMMARY | 2024-06-15 11:36 | XMS_ITS | Clinical Summary ---
Author Organization [facility] [address] Address [address] [place] [address] Care Team Providers Care Sky Cap Name Role Phone Adrianna Silva MD Primary [...] on file Legal Sex Female 6:59 AM MODULAR HOME CREW MEMBER Gender Identity Not on file Sexual Orientation Not on file Obstetrics History Last Filed Vital Signs Vital Sign Reading Time Taken Comments Blood Pressure 138/78 05/01/2021 8:47 AM MODULAR HOME CREW MEMBER Pulse 91 05/01/2021 8:47 AM MODULAR HOME CREW MEMBER Temperature 36.7 C (98.1 F) 10/10/2017 12:15 PM CDT Respiratory Rate 15 01/28/2021 9:05 AM CDT Oxygen Saturation 97% 05/01/2021 8:47 AM MODULAR HOME CREW MEMBER Inhaled Oxygen Concentration - - Weight 89.5 kg (197 lb 4.8 oz) 05/01/2021 8:47 A M MODULAR HOME CREW MEMBER Height 160 cm (5' 3 ) 05/01/2021 8:47 AM MODULAR HOME CREW MEMBER Body Mass Index 34.95 05/01/2021 8:47 AM MODULAR HOME CREW MEMBER Plan of Treatment Not on file Insurance MEDICARE [employer] Care Teams Sky Cap Relationship Specialty Start Date End Date Adrianna Silva MD [address] [facility] [address] [place] [address] PCP - General Family Medicine 05/03/17
--- OUTSIDE RECORDS SUMMARY | 2024-06-15 11:36 | XMS_ITS | Clinical Summary ---
Author Organization [facility] Address [address] [facility] [place] [address] Care Team Providers Care Packer Dried Beef Name Role Phone Adrianna Silva MD Primary Care Provider + Source Comments [facility],non-[facility] Affiliates and Associated Physician Practices is amultiple site organization consisting of ambulatory clinics and hospital sitesin [place], [place], [place]. This disclosure is being madepursuant to the Care Everywhere program and may not contain all information available regarding this patient. Last updated 18.[facility] Social History Tobacco Use Types Packs/Day Years [...] age to complete this topic Care Teams Packer Dried Beef Relationship Specialty Start Date End Date Adrianna Silva MD [address] [place] [address] PCP - General 06/12/19
--- OUTSIDE RECORDS SUMMARY | 2024-06-15 11:36 | XMS_ITS | Encounter Summary ---
Author Organization [facility] Address [address] [place] [address] Care Team Providers Care Weaving Inspector Name Role Phone Adrianna Silva MD Primary Care Provider +1- [phone] Encounter Details Date Type Department Care Team (Latest Contact Info) Description 10/01/2002 Outpatient Historical HIS DUAL IOP Fernandez Galvan MD [address] [place] [id number] DEPRESS PSYCHOSIS-UNSPEC (Primary Dx) Social History Tobacco Use Types Packs/Day Years Used Date Smoking Tobacco: Never Assessed Comments Unknown Sex and Gender Information Value Date Recorded Sex Assigned at Not on file Legal Sex Female 4:08 AM VALUE ADVISOR Gender Identity Not on file Sexual Orientation Not on file documented as of this encounter Plan of Treatment Not on file documented as of this encounter Visit Diagnoses Diagnosis Major depressive disorder, single episode, unspecified- Primary documented in this encounter Care Teams Weaving Inspector Relationship Specialty Start Date End Date Adrianna Silva MD PCP - General Family Practice 03/02/13 documented as of this encounter
--- OUTSIDE RECORDS SUMMARY | 2024-06-15 11:36 | XMS_ITS | Patient Health Summary ---
Author Organization [facility] Address [address] [facility] [place] [address] Care Team Providers Care Curve Saw Operator Name Role Phone Adrianna Silva MD Primary Care Provider + Note from [facility],non-owned Affiliates and Associated Physician Practices is amultiple site organization consisting of ambulatory clinics and hospital sitesin [place], [place], [place] and [place]. This disclosure is being madepursuant to the Care Everywhere program and may not contain all information available regarding this patient. Last updated 18.[facility] Social History Tobacco Use Types Packs/Day Years Used Date Smoking Tobacco: Never Assessed Sex and Gender Information Value Date Recorded Sex Assigned at Not on file Gender Identity Not on file Sexual Orientation Not on file Procedures * GROSS + MICRO EXAM(Performed 05/24/2000) * GROSS + MICRO EXAM(Performed 05/03/2000) Results * GROSS + MICRO EXAM (05/24/2000 10:15 AM ODD JOB LABORER) Only the most recent of2 resultswithin the [...] The occluded portion of fallopian tube is chávez pink and tortuous. It measures 2.5 cm [...] specimen is submitted in H and I. /[facility] Microscopic Exam Section of the cervix are [...] II. Vulvar cyst A. Epidermal cyst jw Robot Operator [facility] Pathologist Kyler Malagon M.D. [place]. 05/25/2000 1349 <7> CPT code 8307/81091, 24618/64093 MISCELLANEOUS SAMPLES / Unknown 05/24/2000 10:15 AM ODD JOB LABORER 05/24/2000 10:16 AM ODD JOB LABORER Historical Provider MD LAB - PATHOLOGY/C YTOLOGY ORDERABLES Care Teams Curve Saw Operator Relationship Specialty Start Date End Date Adrianna Silva MD [address] [place] [address] PCP - General 06/12/19
--- NOTE | 2024-06-15 11:43 | ED_ITS ---
HPI - General Adult General Chief complaint: Shortness of Breath/Dyspnea <Maco Negron MD - Last Filed: 06/15/24 17:30> Stated complaint: SOB <Maco Negron MD - Last Filed: 06/15/24 17:30> Time Seen by Provider: 06/15/24 11:03 <Maco Ngeron MD - Last Filed: 06/15/24 17:30> History of Present Illness HPI narrative: Patient is a 73-year-old female with history of mild dementia and anxiety who presents ER with shortness of breath. Reports has been ongoing intermittently over last week. Yesterday she had palpitations. She thinks she might had some chest pain at the same time. Cannot describe its quality or how long it lasted. She is concerned she may have influenza. She has difficulty completing her thoughts which is part of her dementia according to her who is present. He does feel that she is currently feeling anxious. He is worried that she has been short of breath. On the room her O2 saturation hovers between 90 and 91% while being tachycardic. She no leg swelling. She does not exercise or walk around often according the spouse. No blood thinners. <Maco Negron MD - Last Filed: 06/15/24 17:30> Related Data Home medications: Home Medications ?Medication ?Instructions ?Recorded ?Confirmed ?Last Taken ?Type omega-3 339mg-dha,epa 1 cap PO DAILY 01/04/20 06/15/24 02/03/21 History 314mg-fish,krill 500mg-lutein,zeax 24mg capsule (Megared Advanced Total Body) Lactobacillus 1 cap PO DAILY 03/14/20 06/15/24 02/03/21 History acidophilus-Bifidobac.animalis 2.5 billion cell capsule (Daily Probiotic) diltiazem HCl 180 mg 180 mg PO DAILY 02/04/21 06/15/24 02/03/21 History capsule,extended release 24 hr cholecalciferol (vitamin D3) 125 125 mcg PO DAILY 04/21/21 06/15/24 Unknown History mcg (5,000 unit) capsule omega 2-sjq-qii-fish oil 60 mg-90 1 cap PO DAILY 04/21/21 06/15/24 Unknown History mg-500 mg capsule aspirin 81 mg capsule 81 mg PO DAILY 04/06/22 06/15/24 Unknown History mecobalamin (vitamin B12) 5,000 5,000 mcg PO DAILY 04/06/22 06/16/24 Unknown History mcg disintegrating tablet atorvastatin 20 mg tablet 20 mg PO QPM 06/15/24 06/16/24 Unknown History carvedilol 6.25 mg tablet 6.25 mg PO Q12H 06/15/24 06/16/24 Unknown History escitalopram oxalate 20 mg tablet 20 mg PO DAILY 06/15/24 06/16/24 Unknown History hydroxyzine HCl 25 mg tablet 25 mg PO Q8H 06/15/24 06/16/24 Unknown History memantine 5 mg tablet 5 mg PO QPM 06/15/24 06/16/24 Unknown History omeprazole 40 mg capsule,delayed 40 mg PO DAILY 06/15/24 06/16/24 Unknown History release <Maco Negron MD - Last Filed: 06/15/24 17:30> Allergies/adverse reactions: Allergies Allergy/AdvReac Type Severity Reaction Status Date / Time Sulfa (Sulfonamide Allergy Unknown SWELLING/RA Verified 06/16/24 17:23 Antibiotics) SH <Maco Negron MD - Last Filed: 06/15/24 17:30> Review of Systems 2 Review of Systems: ROS unobtainable: Yes unobtainable due to mental status <Maco Negron MD - Last Filed: 06/15/24 17:30> [facility] Past Medical History Medical History: Medical History (Updated 06/16/24 @ 17:26 by Mae Vera PA-C) Chronic kidney disease, stage 3 Duodenal ulcer Colon polyp Diverticulitis Auditory hallucinations Cognitive impairment Osteoarthritis Esophagitis Esophageal stricture Gastroesophageal reflux disease Hypertension Anxiety Depression Postmenopausal Schatzki's ring Psychophysiological insomnia Alcohol use disorder, mild, abuse Hyperlipidemia Hiatal hernia <Maco Negron MD - Last Filed: 06/15/24 17:30> Surgical History Surgical History: Surgical History (Updated 06/16/24 @ 17:18 by Mae Vera PA-C) History of appendectomy Status post left unicompartmental knee replacement (02/2020) History of hysterectomy History of cholecystectomy <Maco Negron MD - Last Filed: 06/15/24 17:30> Family History Family History: Family History Father Family history of premature coronary heart disease, Onset Age: 63 Sibling Patient's brother is in good health Mother Family history of malignant neoplasm of breast in first degree relative, Onset Age: 64 Patient's mother is Other Depression Diabetes mellitus Family history of cardiovascular disease Family history of malignant neoplasm Hypertension <Maco Negron MD - Last Filed: 06/15/24 17:30> Social History Social History: Social History (Updated 06/16/24 @ 17:20 by Mae Vera PA-C) Social History: Surrogate medical decision maker: Code status: Full code. Smoking status: Never smoker Second hand tobacco smoke exposure: No Alcohol intake: current Drinks per week: 2 Substance use: never Substance use type: does not use Lack of Transportation: No Lack of Food: Never True Current Housing: I Have Housing Concerned About Future Housing: No Difficulty Paying Gas/Electric Bills: No Difficulty Paying for Meds: No Currently Unemployed: YES Education: High School Diploma/GED Difficulty w/ Childcare or Family Care: No Living arrangements: with family Occupation/Education: retired Spiritual care concerns: No <Maco Negron MD - Last Filed: 06/15/24 17:30> Exam 2 Narrative: GENERAL: Anxious-appearing, well-nourished, and in no acute distress. HEAD: Normocephalic, atraumatic. ENT: Mucous membranes moist. CHEST: Clear to auscultation. No respiratory distress. HEART: Tachycardic and regular. Normal peripheral pulses. ABDOMEN: Soft, nontender, nondistended. EXTREMITIES: Normal range of motion. No edema. SKIN: Warm, dry, no rash. NEURO: Alert and oriented x3. PSYCH: Normal mood and affect. <Maco Negron MD - Last Filed: 06/15/24 17:30> Course Course Emergency Course: 1228: Patient on 3 L and in no distress. Heart rate 97 beats per minute. She has been informed of her imaging results as has her . She will be started on heparin. Awaiting lab work. 1337: Hospitalist request we speak with outside hospital about whether patient requires thrombectomy. Patient prefers [facility]. Discussed with transfer line who will reach out to IR. 1408: Interventional radiology at [facility] has equipments that is better for central pulmonary emboli as opposed to segmental and subsegmental emboli and recommend she be evaluated by tertiary care center. 1558: Patient accepted to [facility] in the [facility] system. Accepted to the MICU by Dr. Corona. <Maco Negron MD - Last Filed: 06/15/24 17:30> Reevaluation(s) Reevaluation #1: Overnight the patient had an improvement on her troponin and BNP is increased. On re-evaluation patient is resting comfortably 2 L of oxygen by nasal cannula. Yesterday [facility], [facility] and [facility] were consulted. Patient does still have a bed pending at [facility] but we are unsure long will take until it is available. I discussed admitting the patient to the hospitalist the hospitalist is requesting that we talk to [facility] to see if they are available to do a thrombectomy since this is in the best interest of the patient in her long- term outcome. Family was willing to [facility] consulted. I did discuss the case with the sap data analyst at [facility], Dr. Yeung, and he stated that the patient was not a candidate for thrombectomy at that facility. He was willing to accept the patient for admission but would only being continuing the anticoagulation left the patient had a acute worsening of her symptoms. I discussed this with the family and they are willing to be admitted to our hospital and await the transfer to [facility] if needed. <Reuben Hamm MD - Last Filed: 06/16/24 18:16> Vital Signs Vital signs: Vital Signs Temperature 97.3 F L 06/15/24 08:48 Temperature 97.8 F 06/15/24 18:31 Pulse Rate 95 06/16/24 17:12 Respiratory Rate 22 H 06/16/24 17:12 Blood Pressure 149/84 H 06/16/24 17:12 Pulse Oximetry 97 06/16/24 17:12 Oxygen Delivery Nasal Cannula 06/16/24 09:17 Oxygen Flow Rate 4 06/16/24 09:17 <Maco Negron MD - Last Filed: 06/15/24 17:30> Vital Signs Temperature 97.3 F L 06/15/24 08:48 Temperature 97.8 F 06/15/24 18:31 Pulse Rate 95 06/16/24 17:12 Respiratory Rate 22 H 06/16/24 17:12 Blood Pressure 149/84 H 06/16/24 17:12 Pulse Oximetry 97 06/16/24 17:12 Oxygen Delivery Nasal Cannula 06/16/24 09:17 Oxygen Flow Rate 4 06/16/24 09:17 <Reuben Hamm MD - Last Filed: 06/16/24 18:16> Medical Decision Making Vital Signs Vital Signs: Vital Signs Temperature 97.3 F L 06/15/24 08:48 Temperature 97.8 F 06/15/24 18:31 Pulse Rate 95 06/16/24 17:12 Respiratory Rate 22 H 06/16/24 17:12 Blood Pressure 149/84 H 06/16/24 17:12 Pulse Oximetry 97 06/16/24 17:12 Oxygen Delivery Nasal Cannula 06/16/24 09:17 Oxygen Flow Rate 4 06/16/24 09:17 <Maco Negron MD - Last Filed: 06/15/24 17:30> Vital Signs Temperature 97.3 F L 06/15/24 08:48 Temperature 97.8 F 06/15/24 18:31 Pulse Rate 95 06/16/24 17:12 Respiratory Rate 22 H 06/16/24 17:12 Blood Pressure 149/84 H 06/16/24 17:12 Pulse Oximetry 97 06/16/24 17:12 Oxygen Delivery Nasal Cannula 06/16/24 09:17 Oxygen Flow Rate 4 06/16/24 09:17 <Reuben Hamm MD - Last Filed: 06/16/24 18:16> Lab Data Result diagrams: 06/15/24 11:55 06/15/24 12:02 <Maco Negron MD - Last Filed: 06/15/24 17:30> Labs: Lab Results 06/15/24 06/15/24 06/15/24 Range/Units 11:31 11:55 12:02 WBC 11.6 H (4.5-10.0) K/mm3 RBC 5.90 H (4.2-5.4) M/mm3 Hgb 15.6 H (12.0-15.0) g/dL Hct 49.3 H (37.0-47.0) % MCV 83.6 (80-100) fl MCH 26.4 (26-34) pg MCHC 31.6 L (32-36) g/dl RDW 17.9 H (11.5-14.5) % Plt Count 373 (150-375) k/mm3 MPV 10.4 (7.4-10.4) fl Immature Gran % (Auto) 0.7 H (0-0.5) % Neut % (Auto) 67.0 (45.5-73.1) % Lymph % (Auto) 23.4 (18.3-44.2) % Mcnairy % (Auto) 6.7 (2.6-8.5) % Eos % (Auto) 1.4 (0-4.4) % Baso % (Auto) 0.8 (0.2-1.2) % Lymph # (Auto) 2.72 (0.9-3.2) K/mm3 Mcnairy # (Auto) 0.8 H (0.1-0.6) K/mm3 Eos # (Auto) 0.2 (0-0.3) K/mm3 Baso # (Auto) 0.1 (0.0-0.1) K/mm3 Abs Immat Gran (auto) 0.08 H (0.00-0.031) K/mm3 Absolute Neuts (auto) 7.8 H (1.3-6.7) K/mm3 Absolute Nucleated RBC 0.000 (0.0-0.012) K/mm3 Nucleated RBC % 0.0 (0.0-0.2) % PT 13.1 (11.1-14.7) Seconds INR 1.0 APTT 26.3 (22.3-36.8) Seconds Sodium 141 (137-145) mmol/L Potassium 4.3 (3.4-5.0) mmol/L Chloride 105 (98-107) mmol/L Carbon Dioxide 22 (22-30) mmol/L Anion Gap 14 H (4-12) mmol/L BUN 17 (7-17) mg/dL Creatinine 1.03 H 1.10 (0.7-1.0) mg/dL Estim Creat Clear Calc 44 42 ml/min Estimated GFR 52 L 48 L (59 - ) Glucose 128 H (65-110) mg/dL Calcium 9.4 (8.4-10.2) mg/dL Total Bilirubin 0.7 (0.2-1.3) mg/dL AST 21 (14-36) U/L ALT 20 (6-35) U/L Alkaline Phosphatase 195 H (38-126) U/L Troponin I 0.058 H* (0.000-0.034) ng/mL NT-Pro-B Natriuret Pep 3560 H (19.9-100) pg/mL Total Protein 8.0 (6.3-8.2) g/dL Albumin 4.3 (3.5-5.1) g/dL Influenza A (RT-PCR) Negative (Negative) Influenza B (RT-PCR) Negative (Negative) RSV (RT-PCR) Negative (Negative) SARS-CoV-2 RNA (RT-PCR) Negative (Negative) 06/15/24 06/15/24 06/16/24 Range/Units 14:52 19:24 01:45 WBC (4.5-10.0) K/mm3 RBC (4.2-5.4) M/mm3 Hgb (12.0-15.0) g/dL Hct (37.0-47.0) % MCV (80-100) fl MCH (26-34) pg MCHC (32-36) g/dl RDW (11.5-14.5) % Plt Count (150-375) k/mm3 MPV (7.4-10.4) fl Immature Gran % (Auto) (0-0.5) % Neut % (Auto) (45.5-73.1) % Lymph % (Auto) (18.3-44.2) % Mcnairy % (Auto) (2.6-8.5) % Eos % (Auto) (0-4.4) % Baso % (Auto) (0.2-1.2) % Lymph # (Auto) (0.9-3.2) K/mm3 Mcnairy # (Auto) (0.1-0.6) K/mm3 Eos # (Auto) (0-0.3) K/mm3 Baso # (Auto) (0.0-0.1) K/mm3 Abs Immat Gran (auto) (0.00-0.031) K/mm3 Absolute Neuts (auto) (1.3-6.7) K/mm3 Absolute Nucleated RBC (0.0-0.012) K/mm3 Nucleated RBC % (0.0-0.2) % PT 14.0 14.1 (11.1-14.7) Seconds INR 1.1 1.1 APTT 96.2 H 76.2 H (22.3-36.8) Seconds Sodium (137-145) mmol/L Potassium (3.4-5.0) mmol/L Chloride (98-107) mmol/L Carbon Dioxide (22-30) mmol/L Anion Gap (4-12) mmol/L BUN (7-17) mg/dL Creatinine (0.7-1.0) mg/dL Estim Creat Clear Calc ml/min Estimated GFR (59 - ) Glucose (65-110) mg/dL Calcium (8.4-10.2) mg/dL Total Bilirubin (0.2-1.3) mg/dL AST (14-36) U/L ALT (6-35) U/L Alkaline Phosphatase (38-126) U/L Troponin I 0.101 H* D (0.000-0.034) ng/mL NT-Pro-B Natriuret Pep (19.9-100) pg/mL Total Protein (6.3-8.2) g/dL Albumin (3.5-5.1) g/dL Influenza A (RT-PCR) (Negative) Influenza B (RT-PCR) (Negative) RSV (RT-PCR) (Negative) SARS-CoV-2 RNA (RT-PCR) (Negative) 06/16/24 06/16/24 06/16/24 Range/Units 07:29 12:49 16:22 WBC (4.5-10.0) K/mm3 RBC (4.2-5.4) M/mm3 Hgb (12.0-15.0) g/dL Hct (37.0-47.0) % MCV (80-100) fl MCH (26-34) pg MCHC (32-36) g/dl RDW (11.5-14.5) % Plt Count (150-375) k/mm3 MPV (7.4-10.4) fl Immature Gran % (Auto) (0-0.5) % Neut % (Auto) (45.5-73.1) % Lymph % (Auto) (18.3-44.2) % Mcnairy % (Auto) (2.6-8.5) % Eos % (Auto) (0-4.4) % Baso % (Auto) (0.2-1.2) % Lymph # (Auto) (0.9-3.2) K/mm3 Mcnairy # (Auto) (0.1-0.6) K/mm3 Eos # (Auto) (0-0.3) K/mm3 Baso # (Auto) (0.0-0.1) K/mm3 Abs Immat Gran (auto) (0.00-0.031) K/mm3 Absolute Neuts (auto) (1.3-6.7) K/mm3 Absolute Nucleated RBC (0.0-0.012) K/mm3 Nucleated RBC % (0.0-0.2) % PT 13.6 (11.1-14.7) Seconds INR 1.0 APTT 58.9 H 110.5 H (22.3-36.8) Seconds Sodium (137-145) mmol/L Potassium (3.4-5.0) mmol/L Chloride (98-107) mmol/L Carbon Dioxide (22-30) mmol/L Anion Gap (4-12) mmol/L BUN (7-17) mg/dL Creatinine (0.7-1.0) mg/dL Estim Creat Clear Calc ml/min Estimated GFR (59 - ) Glucose (65-110) mg/dL Calcium (8.4-10.2) mg/dL Total Bilirubin (0.2-1.3) mg/dL AST (14-36) U/L ALT (6-35) U/L Alkaline Phosphatase (38-126) U/L Troponin I 0.055 H* (0.000-0.034) ng/mL NT-Pro-B Natriuret Pep 4370 H (19.9-100) pg/mL Total Protein (6.3-8.2) g/dL Albumin (3.5-5.1) g/dL Influenza A (RT-PCR) (Negative) Influenza B (RT-PCR) (Negative) RSV (RT-PCR) (Negative) SARS-CoV-2 RNA (RT-PCR) (Negative) <Maco Negron MD - Last Filed: 06/15/24 17:30> Lab Results 06/15/24 06/15/24 06/15/24 Range/Units 11:31 11:55 12:02 WBC 11.6 H (4.5-10.0) K/mm3 RBC 5.90 H (4.2-5.4) M/mm3 Hgb 15.6 H (12.0-15.0) g/dL Hct 49.3 H (37.0-47.0) % MCV 83.6 (80-100) fl MCH 26.4 (26-34) pg MCHC 31.6 L (32-36) g/dl RDW 17.9 H (11.5-14.5) % Plt Count 373 (150-375) k/mm3 MPV 10.4 (7.4-10.4) fl Immature Gran % (Auto) 0.7 H (0-0.5) % Neut % (Auto) 67.0 (45.5-73.1) % Lymph % (Auto) 23.4 (18.3-44.2) % Mcnairy % (Auto) 6.7 (2.6-8.5) % Eos % (Auto) 1.4 (0-4.4) % Baso % (Auto) 0.8 (0.2-1.2) % Lymph # (Auto) 2.72 (0.9-3.2) K/mm3 Mcnairy # (Auto) 0.8 H (0.1-0.6) K/mm3 Eos # (Auto) 0.2 (0-0.3) K/mm3 Baso # (Auto) 0.1 (0.0-0.1) K/mm3 Abs Immat Gran (auto) 0.08 H (0.00-0.031) K/mm3 Absolute Neuts (auto) 7.8 H (1.3-6.7) K/mm3 Absolute Nucleated RBC 0.000 (0.0-0.012) K/mm3 Nucleated RBC % 0.0 (0.0-0.2) % PT 13.1 (11.1-14.7) Seconds INR 1.0 APTT 26.3 (22.3-36.8) Seconds Sodium 141 (137-145) mmol/L Potassium 4.3 (3.4-5.0) mmol/L Chloride 105 (98-107) mmol/L Carbon Dioxide 22 (22-30) mmol/L Anion Gap 14 H (4-12) mmol/L BUN 17 (7-17) mg/dL Creatinine 1.03 H 1.10 (0.7-1.0) mg/dL Estim Creat Clear Calc 44 42 ml/min Estimated GFR 52 L 48 L (59 - ) Glucose 128 H (65-110) mg/dL Calcium 9.4 (8.4-10.2) mg/dL Total Bilirubin 0.7 (0.2-1.3) mg/dL AST 21 (14-36) U/L ALT 20 (6-35) U/L Alkaline Phosphatase 195 H (38-126) U/L Troponin I 0.058 H* (0.000-0.034) ng/mL NT-Pro-B Natriuret Pep 3560 H (19.9-100) pg/mL Total Protein 8.0 (6.3-8.2) g/dL Albumin 4.3 (3.5-5.1) g/dL Influenza A (RT-PCR) Negative (Negative) Influenza B (RT-PCR) Negative (Negative) RSV (RT-PCR) Negative (Negative) SARS-CoV-2 RNA (RT-PCR) Negative (Negative) 06/15/24 06/15/24 06/16/24 Range/Units 14:52 19:24 01:45 WBC (4.5-10.0) K/mm3 RBC (4.2-5.4) M/mm3 Hgb (12.0-15.0) g/dL Hct (37.0-47.0) % MCV (80-100) fl MCH (26-34) pg MCHC (32-36) g/dl RDW (11.5-14.5) % Plt Count (150-375) k/mm3 MPV (7.4-10.4) fl Immature Gran % (Auto) (0-0.5) % Neut % (Auto) (45.5-73.1) % Lymph % (Auto) (18.3-44.2) % Mcnairy % (Auto) (2.6-8.5) % Eos % (Auto) (0-4.4) % Baso % (Auto) (0.2-1.2) % Lymph # (Auto) (0.9-3.2) K/mm3 Mcnairy # (Auto) (0.1-0.6) K/mm3 Eos # (Auto) (0-0.3) K/mm3 Baso # (Auto) (0.0-0.1) K/mm3 Abs Immat Gran (auto) (0.00-0.031) K/mm3 Absolute Neuts (auto) (1.3-6.7) K/mm3 Absolute Nucleated RBC (0.0-0.012) K/mm3 Nucleated RBC % (0.0-0.2) % PT 14.0 14.1 (11.1-14.7) Seconds INR 1.1 1.1 APTT 96.2 H 76.2 H (22.3-36.8) Seconds Sodium (137-145) mmol/L Potassium (3.4-5.0) mmol/L Chloride (98-107) mmol/L Carbon Dioxide (22-30) mmol/L Anion Gap (4-12) mmol/L BUN (7-17) mg/dL Creatinine (0.7-1.0) mg/dL Estim Creat Clear Calc ml/min Estimated GFR (59 - ) Glucose (65-110) mg/dL Calcium (8.4-10.2) mg/dL Total Bilirubin (0.2-1.3) mg/dL AST (14-36) U/L ALT (6-35) U/L Alkaline Phosphatase (38-126) U/L Troponin I 0.101 H* D (0.000-0.034) ng/mL NT-Pro-B Natriuret Pep (19.9-100) pg/mL Total Protein (6.3-8.2) g/dL Albumin (3.5-5.1) g/dL Influenza A (RT-PCR) (Negative) Influenza B (RT-PCR) (Negative) RSV (RT-PCR) (Negative) SARS-CoV-2 RNA (RT-PCR) (Negative) 06/16/24 06/16/24 06/16/24 Range/Units 07:29 12:49 16:22 WBC (4.5-10.0) K/mm3 RBC (4.2-5.4) M/mm3 Hgb (12.0-15.0) g/dL Hct (37.0-47.0) % MCV (80-100) fl MCH (26-34) pg MCHC (32-36) g/dl RDW (11.5-14.5) % Plt Count (150-375) k/mm3 MPV (7.4-10.4) fl Immature Gran % (Auto) (0-0.5) % Neut % (Auto) (45.5-73.1) % Lymph % (Auto) (18.3-44.2) % Mcnairy % (Auto) (2.6-8.5) % Eos % (Auto) (0-4.4) % Baso % (Auto) (0.2-1.2) % Lymph # (Auto) (0.9-3.2) K/mm3 Mcnairy # (Auto) (0.1-0.6) K/mm3 Eos # (Auto) (0-0.3) K/mm3 Baso # (Auto) (0.0-0.1) K/mm3 Abs Immat Gran (auto) (0.00-0.031) K/mm3 Absolute Neuts (auto) (1.3-6.7) K/mm3 Absolute Nucleated RBC (0.0-0.012) K/mm3 Nucleated RBC % (0.0-0.2) % PT 13.6 (11.1-14.7) Seconds INR 1.0 APTT 58.9 H 110.5 H (22.3-36.8) Seconds Sodium (137-145) mmol/L Potassium (3.4-5.0) mmol/L Chloride (98-107) mmol/L Carbon Dioxide (22-30) mmol/L Anion Gap (4-12) mmol/L BUN (7-17) mg/dL Creatinine (0.7-1.0) mg/dL Estim Creat Clear Calc ml/min Estimated GFR (59 - ) Glucose (65-110) mg/dL Calcium (8.4-10.2) mg/dL Total Bilirubin (0.2-1.3) mg/dL AST (14-36) U/L ALT (6-35) U/L Alkaline Phosphatase (38-126) U/L Troponin I 0.055 H* (0.000-0.034) ng/mL NT-Pro-B Natriuret Pep 4370 H (19.9-100) pg/mL Total Protein (6.3-8.2) g/dL Albumin (3.5-5.1) g/dL Influenza A (RT-PCR) (Negative) Influenza B (RT-PCR) (Negative) RSV (RT-PCR) (Negative) SARS-CoV-2 RNA (RT-PCR) (Negative) <Reuben Hamm MD - Last Filed: 06/16/24 18:16> Imaging Data Radiologist's impression: ITS Impressions Chest CTA 06/15/24 12:18 IMPRESSION: 1. Extensive pulmonary emboli throughout both lungs with high clot burden and with findings of secondary right heart strain including right ventricular and atrial enlargement. Dr. Trujillo discussed these findings with Dr. Negron at 12:20 PM. 2. Moderate-sized sliding-type hiatal hernia. <Maco Negron MD - Last Filed: 06/15/24 17:30> ECG Data EKG #1: ECG completion date: 06/15/24 <Maco Negron MD - Last Filed: 06/15/24 17:30> ECG completion time: 08:51 <Maco Negron MD - Last Filed: 06/15/24 17:30> EKG Interpretation: normal rate, sinus rhythm, non-specific ST changes, normal QRS, normal QT and left axis <Maco Negron MD - Last Filed: 06/15/24 17:30> Critical Care Time Critical Care Time Total Critical Care Time: 60 <Maco Negron MD - Last Filed: 06/15/24 17:30> 85 <Reuben Hamm MD - Last Filed: 06/16/24 18:16> Discharge Plan Discharge Clinical Impression: Acute massive pulmonary embolism <Maco Negron MD - Last Filed: 06/15/24 17:30> Patient Disposition: Acute Care Hospital <Maco Negron MD - Last Filed: 06/15/24 17:30> Condition: Serious <Maco Negron MD - Last Filed: 06/15/24 17:30>
[2024-06-15 12:03] LABS: Basophils Absolute Auto 0.1 K/mm3 (0.0-0.1); Basophils Percent Auto 0.8 % (0.2-1.2); Eosinophils Absolute Auto 0.2 K/mm3 (0-0.3); Eosinophils Percent Auto 1.4 % (0-4.4); Hematocrit 49.3 % (37.0-47.0); Hemoglobin 15.6 g/dL (12.0-15.0); Immature Granulocyte Absolute 0.08 K/mm3 (0.00-0.031); Immature Granulocyte Percent A 0.7 % (0-0.5); Lymphocytes Absolute Auto 2.72 K/mm3 (0.9-3.2); Lymphocytes Percent Auto 23.4 % (18.3-44.2); Mean Corpuscular HGB Conc 31.6 g/dl (32-36); Mean Corpuscular Hemoglobin 26.4 pg (26-34); Mean Corpuscular Volume 83.6 fl (80-100); Mean Platelet Volume 10.4 fl (7.4-10.4); Monocytes Absolute Auto 0.8 K/mm3 (0.1-0.6); Monocytes Percent Auto 6.7 % (2.6-8.5); Neutrophils Absolute Auto 7.8 K/mm3 (1.3-6.7); Platelet Count Result 373 k/mm3 (150-375); Red Cell Distribution Width 17.9 % (11.5-14.5); White Blood Count 11.6 K/mm3 (4.5-10.0)
[2024-06-15 12:06] LABS: Estimated CRCL calculation 42 ml/min; Estimated Glomerular Filt Rate 48
[2024-06-15 12:12] LABS: Influenza A QL RT-PCR Negative (Negative); Influenza B QL RT-PCR Negative (Negative); RSV RNA, RT-PCR Negative (Negative); SARS-CoV-2 RNA PCR Negative (Negative)
[2024-06-15 12:14] LABS: Prothrombin Time 13.1 Seconds (11.1-14.7)
[2024-06-15 12:15] LABS: Partial Thromboplastin Time 26.3 Seconds (22.3-36.8)
[2024-06-15] MEDS: LORazepam INJ (*CRX) 2 MG/ML VIAL 0.5 MG IV PUSH (12:46)
[2024-06-15 12:49] LABS: Alanine Aminotransferase 20 U/L (6-35); Albumin Level 4.3 g/dL (3.5-5.1); Alkaline Phosphatase 195 U/L (38-126); Anion Gap 14 mmol/L (4-12); Aspartate Amino Transferase 21 U/L (14-36); Bilirubin,Total 0.7 mg/dL (0.2-1.3); Blood Urea Nitrogen 17 mg/dL (7-17); Calcium 9.4 mg/dL (8.4-10.2); Carbon Dioxide 22 mmol/L (22-30); Chloride 105 mmol/L (98-107); Estimated CRCL calculation 44 ml/min; Estimated Glomerular Filt Rate 52; Glucose 128 mg/dL (65-110); NT Pro B Type Natriuretic Pept 3560 pg/mL (19.9-100); Potassium 4.3 mmol/L (3.4-5.0); Sodium 141 mmol/L (137-145); Troponin I 0.058 ng/mL (0.000-0.034)
[2024-06-15] MEDS: HEPARIN SODIUM 5,000 UNITS/ML VIAL 5500 UNITS IV PUSH (13:02)
[2024-06-15] MEDS: HEPARIN SOD/D5W 100 UNITS/ML 25,000 UNITS/250 ML BAG 12 UNITS IV CONT (13:03)
[2024-06-15 15:38] LABS: Troponin I 0.101 ng/mL (0.000-0.034)
[2024-06-15] MEDS: MORPHINE SULFATE (*CRX) 4 MG/ML INJ 2 MG IV PUSH (17:38)
[2024-06-15 19:47] LABS: INR 1.1
[2024-06-15 19:49] LABS: Partial Thromboplastin Time 96.2 Seconds (22.3-36.8)
[2024-06-15] MEDS: diphenhydrAMINE HCl INJ 50 MG/ML VIAL 25 MG IV PUSH (23:20)
[2024-06-16] VITALS (36 sets, daily range): BP systolic 99–149; BP diastolic 52–99; PULSE 80–98; RESP 10–24; O2SAT 90–100; BMI 36.1
[2024-06-16 02:09] LABS: INR 1.1; Prothrombin Time 14.1 Seconds (11.1-14.7)
[2024-06-16 02:10] LABS: Partial Thromboplastin Time 76.2 Seconds (22.3-36.8)
--- NOTE | 2024-06-16 02:16 | PC.NURSE ---
PTT 76.2, within therapeutic range of 71-105. No bolus and no rate change at this time.
--- NOTE | 2024-06-16 08:17 | ECG_ITS ---
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
[2024-06-16 08:20] LABS: Partial Thromboplastin Time 58.9 Seconds (22.3-36.8); Prothrombin Time 13.6 Seconds (11.1-14.7)
[2024-06-16] MEDS: HEPARIN SODIUM 5,000 UNITS/ML VIAL 2500 UNITS IV PUSH (08:57)
[2024-06-16] MEDS: HEPARIN SOD/D5W 100 UNITS/ML 25,000 UNITS/250 ML BAG 13 UNITS IV CONT (10:28)
[2024-06-16 13:19] LABS: NT Pro B Type Natriuretic Pept 4370 pg/mL (19.9-100)
[2024-06-16 13:25] LABS: Troponin I 0.055 ng/mL (0.000-0.034)
[2024-06-16 16:45] LABS: Partial Thromboplastin Time 110.5 Seconds (22.3-36.8)
--- NOTE | 2024-06-16 17:10 | PM.IMHP ---
H&P: HPI History of Present Illness Date/Time: 06/16/24 17:10 Chief Complaint: Shortness of breath. Narrative: This is a 73-year-old female with history of dementia, hypertension, esophagitis with esophageal stricture, gastroesophageal reflux disease, duodenal ulcer, anxiety, and alcohol abuse (he has cut back significantly and probably does not even drink the equivalent of 1 alcoholic beverage a week now) who presented to the emergency department in the morning of 06/15/2024 via private vehicle from home for evaluation of shortness of breath. The patient and her provide the following history. She reports that she twisted her left knee on [place] [address] and that she has been less mobile since that time due to ongoing pain. Family members have encouraged her to get up and get walking but over the last several weeks she has been feeling short of breath with activity. Yesterday morning she had acute worsening of her shortness of breath associated with sensations of racing heart and mild pleuritic pain and she came in for evaluation. Vital signs were stable on arrival to the ED although her SpO2 dropped to 88% on room air and she was started on supplemental oxygen. Chest CTA showed extensive pulmonary emboli throughout both lungs with a high clot burden findings of secondary right heart strain including right ventricular and atrial enlargement. She was started on a heparin drip and due to intermediate risk pulmonary embolism, transfer was initiated to [facility] for consideration of intervention. Other facilities including [facility] and [facility] were contacted but they had no bed availability. She is being admitted in this setting while awaiting transfer. At the time my evaluation she is lying supine in bed and looks comfortable. Her blood pressures and heart rate have been stable and she is currently on 4 L nasal cannula. She does not have current complaints and denies syncope, near syncope, chest pain, pleuritic pain, palpitations, significant shortness of breath, nausea, vomiting, sweats, lower extremity edema, and calf pain. She denies history of venous thromboembolism and malignancy. Review of Systems Review of Systems: 12 systems were reviewed and are negative except for as per HPI. [facility] Past Medical History Medical History Chronic kidney disease, stage 3 Duodenal ulcer Colon polyp Diverticulitis Auditory hallucinations Cognitive impairment Osteoarthritis Esophagitis Esophageal stricture Gastroesophageal reflux disease Hypertension Anxiety Depression Postmenopausal Schatzki's ring Psychophysiological insomnia Alcohol use disorder, mild, abuse Hyperlipidemia Hiatal hernia Surgical History Surgical History History of appendectomy Status post left unicompartmental knee replacement (02/2020) History of hysterectomy History of cholecystectomy Family History Family History Father Family history of premature coronary heart disease, Onset Age: 63 Sibling Patient's brother is in good health Mother Family history of malignant neoplasm of breast in first degree relative, Onset Age: 64 Patient's mother is Other Depression Diabetes mellitus Family history of cardiovascular disease Family history of malignant neoplasm Hypertension Social History Social History (Updated 06/16/24 @ 22:09 by Mae Vera PA-C) Social History: Surrogate medical decision maker: Rodriguez Ervin, spouse. Code status: Full code. Smoking status: Never smoker Second hand tobacco smoke exposure: No Alcohol intake: current Drinks per week: 1 Alcohol use details: Drinks perhaps the equivalent of 1 alcoholic beverage a week. She does have a history of heavy drinking. Substance use: never Substance use type: does not use Lack of Transportation: No Lack of Food: Never True Current Housing: I Have Housing Concerned About Future Housing: No Difficulty Paying Gas/Electric Bills: No Difficulty Paying for Meds: No Currently Unemployed: YES Education: High School Diploma/GED Difficulty w/ Childcare or Family Care: No Living arrangements: with family Occupation/Education: retired Spiritual care concerns: No Meds Home Medications and Allergies Home Medications ?Medication ?Instructions ?Recorded ?Confirmed ?Type diltiazem HCl 180 mg 180 mg PO DAILY 02/04/21 06/15/24 History capsule,extended release 24 hr aspirin 81 mg capsule 81 mg PO DAILY 04/06/22 06/15/24 History mecobalamin (vitamin B12) 5,000 5,000 mcg PO DAILY 04/06/22 06/16/24 History mcg disintegrating tablet trazodone 50 mg tablet See Rx Instructions .Route 06/06/22 06/15/24 Rx .COMPLEX #30 tabs donepezil 10 mg tablet (Aricept) See Rx Instructions PO .COMPLEX 09/15/22 06/15/24 Rx #30 tabs valsartan 40 mg tablet See Rx Instructions .Route 09/23/22 06/15/24 Rx .COMPLEX #180 tabs atorvastatin 20 mg tablet 20 mg PO QPM 06/15/24 06/16/24 History carvedilol 6.25 mg tablet 6.25 mg PO Q12H 06/15/24 06/16/24 History escitalopram oxalate 20 mg tablet 20 mg PO DAILY 06/15/24 06/16/24 History hydroxyzine HCl 25 mg tablet 25 mg PO Q8H 06/15/24 06/16/24 History memantine 5 mg tablet 5 mg PO QPM 06/15/24 06/16/24 History omeprazole 40 mg capsule,delayed 40 mg PO DAILY 06/15/24 06/16/24 History release mecobalamin (vitamin B12) 1,000 1,000 mcg sublingual EVERY OTHER 06/16/24 06/16/24 History mcg disintegrating DAY tablet,sublingual Allergies Allergy/AdvReac Type Severity Reaction Status Date / Time Sulfa (Sulfonamide Allergy Unknown SWELLING/RA Verified 06/16/24 22:13 Antibiotics) SH Vital Signs Vital Signs - 24 hr 06/15/24 17:12 06/15/24 18:17 06/15/24 18:31 Temperature 97.7 F 97.8 F Pulse Rate 95 95 93 Respiratory Rate 20 20 20 Blood Pressure 143/83 H 151/79 H 145/80 H Pulse Oximetry 94 95 93 Oxygen Delivery Oxygen Flow Rate 06/15/24 18:46 06/15/24 19:01 06/15/24 19:16 Temperature Pulse Rate 88 90 93 Respiratory Rate 17 20 17 Blood Pressure 137/69 132/71 133/81 Pulse Oximetry 95 97 97 Oxygen Delivery Oxygen Flow Rate 06/15/24 19:31 06/15/24 19:46 06/15/24 20:01 Temperature Pulse Rate 88 88 88 Respiratory Rate 19 20 22 H Blood Pressure 124/70 130/66 116/60 Pulse Oximetry 95 94 94 Oxygen Delivery Oxygen Flow Rate 06/15/24 20:16 06/15/24 20:31 06/15/24 20:46 Temperature Pulse Rate 88 89 96 Respiratory Rate 20 25 H 16 Blood Pressure 136/67 134/68 146/71 H Pulse Oximetry 95 94 91 Oxygen Delivery Oxygen Flow Rate 06/15/24 21:31 06/15/24 21:46 06/15/24 22:01 Temperature Pulse Rate 88 86 86 Respiratory Rate 17 19 22 H Blood Pressure 130/72 126/70 138/71 Pulse Oximetry 96 94 94 Oxygen Delivery Oxygen Flow Rate 06/15/24 22:16 06/15/24 22:53 06/15/24 23:16 Temperature Pulse Rate 100 87 87 Respiratory Rate 19 19 19 Blood Pressure 123/77 135/66 118/66 Pulse Oximetry 92 97 96 Oxygen Delivery Oxygen Flow Rate 06/16/24 00:16 06/16/24 00:31 06/16/24 00:46 Temperature Pulse Rate 86 89 92 Respiratory Rate 22 H 22 H 19 Blood Pressure 133/71 115/73 124/75 Pulse Oximetry 93 92 93 Oxygen Delivery Oxygen Flow Rate 06/16/24 01:01 06/16/24 01:16 06/16/24 01:31 Temperature Pulse Rate 87 84 87 Respiratory Rate 17 21 H 20 Blood Pressure 123/64 101/56 L 122/64 Pulse Oximetry 94 95 94 Oxygen Delivery Oxygen Flow Rate 06/16/24 02:01 06/16/24 02:16 06/16/24 02:31 Temperature Pulse Rate 85 98 84 Respiratory Rate 19 21 H 21 H Blood Pressure 111/74 125/78 110/60 Pulse Oximetry 92 92 96 Oxygen Delivery Oxygen Flow Rate 06/16/24 02:46 06/16/24 03:01 06/16/24 03:17 Temperature Pulse Rate 80 84 90 Respiratory Rate 17 17 20 Blood Pressure 102/56 L 107/61 107/59 L Pulse Oximetry 95 95 92 Oxygen Delivery Oxygen Flow Rate 06/16/24 03:31 06/16/24 03:46 06/16/24 04:01 Temperature Pulse Rate 80 81 89 Respiratory Rate 16 22 H 17 Blood Pressure 99/61 L 106/60 123/67 Pulse Oximetry 96 97 94 Oxygen Delivery Oxygen Flow Rate 06/16/24 04:16 06/16/24 04:31 06/16/24 05:12 Temperature Pulse Rate 89 87 95 Respiratory Rate 20 17 20 Blood Pressure 135/82 133/68 118/96 H Pulse Oximetry 95 97 90 Oxygen Delivery Oxygen Flow Rate 06/16/24 05:16 06/16/24 05:31 06/16/24 05:46 Temperature Pulse Rate 89 87 85 Respiratory Rate 20 17 10 L Blood Pressure 138/66 126/68 133/76 Pulse Oximetry 95 96 93 Oxygen Delivery Oxygen Flow Rate 06/16/24 06:02 06/16/24 06:16 06/16/24 06:31 Temperature Pulse Rate 90 82 85 Respiratory Rate 24 H 20 19 Blood Pressure 115/69 129/78 113/71 Pulse Oximetry 91 100 93 Oxygen Delivery Oxygen Flow Rate 06/16/24 06:46 06/16/24 07:01 06/16/24 07:52 Temperature Pulse Rate 83 80 83 Respiratory Rate 16 16 Blood Pressure 128/67 105/52 L Pulse Oximetry 94 98 Oxygen Delivery Oxygen Flow Rate 06/16/24 07:53 06/16/24 08:46 06/16/24 09:17 Temperature Pulse Rate 83 85 Respiratory Rate 19 17 Blood Pressure 134/69 139/84 Pulse Oximetry 99 95 97 Oxygen Delivery Nasal Cannula Oxygen Flow Rate 4 06/16/24 10:29 06/16/24 12:00 06/16/24 13:12 Temperature Pulse Rate 93 95 94 Respiratory Rate 17 21 H 19 Blood Pressure 121/91 H 120/79 135/99 H Pulse Oximetry 98 98 96 Oxygen Delivery Oxygen Flow Rate 06/16/24 16:36 Temperature Pulse Rate 98 Respiratory Rate 19 Blood Pressure 149/84 H Pulse Oximetry 95 Oxygen Delivery Oxygen Flow Rate Exam Narrative: General: Mildly ill-appearing female supine in bed in no acute distress. Weight: 90 kg. BMI: 35.1. HEENT: Normocephalic, atraumatic. PERRL, EOMI. Sclera anicteric. Oral mucosa moist. Oropharynx clear. Neck: Supple. No JVD. Respiratory: Mild tachypnea and conversational dyspnea although she appears in no acute respiratory distress. She is currently on 4 L nasal cannula. Lung sounds are clear to auscultation. Cardiovascular: Regular rate and rhythm with S1-S2. Gastrointestinal: Abdomen is soft, nontender, and nondistended with positive bowel sounds. Skin: Warm and dry. No rash or lesions on limited exam. Extremities: No cyanosis, clubbing, or significant edema. Radial and pedal pulses intact. No palpable knots or cords. Negative Camila sign bilaterally. Neurological: Alert. Cranial nerves 2-12 are grossly intact. No gross focal deficits to casual conversation. Psychiatric: Pleasant and cooperative with normal mood and affect. Seems a bit forgetful. Occasionally repetitive with circumferential speech. H&P: Results Labs Labs: Laboratory Last Values WBC 11.6 K/mm3 (4.5-10.0) H 06/15/24 11:55 RBC 5.90 M/mm3 (4.2-5.4) H 06/15/24 11:55 Hgb 15.6 g/dL (12.0-15.0) H 06/15/24 11:55 Hct 49.3 % (37.0-47.0) H 06/15/24 11:55 MCV 83.6 fl (80-100) 06/15/24 11:55 MCH 26.4 pg (26-34) 06/15/24 11:55 MCHC 31.6 g/dl (32-36) L 06/15/24 11:55 RDW 17.9 % (11.5-14.5) H 06/15/24 11:55 Plt Count 373 k/mm3 (150-375) 06/15/24 11:55 MPV 10.4 fl (7.4-10.4) 06/15/24 11:55 Immature Gran % (Auto) 0.7 % (0-0.5) H 06/15/24 11:55 Neut % (Auto) 67.0 % (45.5-73.1) 06/15/24 11:55 Lymph % (Auto) 23.4 % (18.3-44.2) 06/15/24 11:55 [place] % (Auto) 6.7 % (2.6-8.5) 06/15/24 11:55 Eos % (Auto) 1.4 % (0-4.4) 06/15/24 11:55 Baso % (Auto) 0.8 % (0.2-1.2) 06/15/24 11:55 Lymph # (Auto) 2.72 K/mm3 (0.9-3.2) 06/15/24 11:55 [place] # (Auto) 0.8 K/mm3 (0.1-0.6) H 06/15/24 11:55 Eos # (Auto) 0.2 K/mm3 (0-0.3) 06/15/24 11:55 Baso # (Auto) 0.1 K/mm3 (0.0-0.1) 06/15/24 11:55 Abs Immat Gran (auto) 0.08 K/mm3 (0.00-0.031) H 06/15/24 11:55 Absolute Neuts (auto) 7.8 K/mm3 (1.3-6.7) H 06/15/24 11:55 Absolute Nucleated RBC 0.000 K/mm3 (0.0-0.012) 06/15/24 11:55 Nucleated RBC % 0.0 % (0.0-0.2) 06/15/24 11:55 PT 13.6 Seconds (11.1-14.7) 06/16/24 07:29 INR 1.0 06/16/24 07:29 APTT 110.5 Seconds (22.3-36.8) H 06/16/24 16:22 Sodium 141 mmol/L (137-145) 06/15/24 11:55 Potassium 4.3 mmol/L (3.4-5.0) 06/15/24 11:55 Chloride 105 mmol/L (98-107) 06/15/24 11:55 Carbon Dioxide 22 mmol/L (22-30) 06/15/24 11:55 Anion Gap 14 mmol/L (4-12) H 06/15/24 11:55 BUN 17 mg/dL (7-17) 06/15/24 11:55 Creatinine 1.10 mg/dL (0.7-1.2) 06/15/24 12:02 Estim Creat Clear Calc 42 ml/min 06/15/24 12:02 Estimated GFR 48 (59-) L 06/15/24 12:02 Glucose 128 mg/dL (65-110) H 06/15/24 11:55 Calcium 9.4 mg/dL (8.4-10.2) 06/15/24 11:55 Total Bilirubin 0.7 mg/dL (0.2-1.3) 06/15/24 11:55 AST 21 U/L (14-36) 06/15/24 11:55 ALT 20 U/L (6-35) 06/15/24 11:55 Alkaline Phosphatase 195 U/L (38-126) H 06/15/24 11:55 Troponin I 0.055 ng/mL (0.000-0.034) H* 06/16/24 12:49 NT-Pro-B Natriuret Pep 4370 pg/mL (19.9-100) H 06/16/24 12:49 Total Protein 8.0 g/dL (6.3-8.2) 06/15/24 11:55 Albumin 4.3 g/dL (3.5-5.1) 06/15/24 11:55 Influenza A (RT-PCR) Negative (Negative) 06/15/24 11:31 Influenza B (RT-PCR) Negative (Negative) 06/15/24 11:31 RSV (RT-PCR) Negative (Negative) 06/15/24 11:31 SARS-CoV-2 RNA (RT-PCR) Negative (Negative) 06/15/24 11:31 Imaging Chest CTA: Radiologist's impression: 1. Extensive pulmonary emboli throughout both lungs with high clot burden and with findings of secondary right heart strain including right ventricular and atrial enlargement. 2. Moderate-sized sliding-type hiatal hernia. Assessment and Plan Assessment and plan (1) Bilateral pulmonary embolism: Code(s): I26.99 - Other pulmonary embolism without acute cor pulmonale Status: Acute (2) Acute respiratory failure with hypoxia: Code(s): J96.01 - Acute respiratory failure with hypoxia Status: Acute (3) Chronic kidney disease, stage 3: Code(s): N18.30 - Chronic kidney disease, stage 3 unspecified Status: Acute (4) Hypertension: Code(s): I10 - Essential (primary) hypertension Status: Acute (5) Hyperlipidemia: Code(s): E78.5 - Hyperlipidemia, unspecified Status: Acute Plan The patient presented to the emergency department yesterday morning for evaluation of shortness of breath and palpitations as detailed in HPI. Labs, imaging, EKG, and all reports were personally reviewed. Chest CTA showed bilateral pulmonary emboli with high clot burden and findings of right heart strain including right atrial and ventricular enlargement. Troponins are mildly elevated but have remained stable and her proBNP is also elevated. She has been accepted at [facility] for for consideration of intervention given her intermediate risk. No bed is yet available and she is being admitted to the ICU for close monitoring pending transfer. Continue heparin drip. Echocardiogram ordered to assess right ventricular heart strain. Lower extremity venous Doppler ultrasounds have also been ordered. Minimize activity for now. Oxygen will be weaned as tolerated. Vital signs were reviewed and they have been stable. Renal function is stable on review of previous labs. Her home medications will be reviewed and resumed as appropriate. Findings and treatment plan were discussed with the patient and her . Questions were solicited and answered to satisfaction. The patient's medical management will be taken over by the hospitalist team in a.m. Quality VTE Prophylaxis VTE prophylaxis: pharmacologic ordered (currently on heparin drip for bilateral pulmonary emboli) Hospitalist MIPS Advance Care Plan I have confirmed that the patient's Advanced Care Plan is present, code status is documented, or surrogate decision maker is listed in patient medical record.: Yes Medication Reconciliation I have utilized all available resources to obtain, update and review the patients current medications (includes all prescriptions, OTC, herbals, cannabis, and nutritional supplements).: Yes Critical Care Time Critical Care Time: Yes Total Critical Care Time: 55 Attestation: Due to a high probability of clinically significant, life threatening deterioration, the patient required my highest level of preparedness to intervene emergently and I personally spent this critical care time directly and personally managing the patient. This critical care time included obtaining a history; examining the patient; pulse oximetry; ordering and review of studies; arranging urgent treatment with development of a management plan; evaluation of patient's response to treatment; frequent reassessment; and discussions with other providers. It was exclusive of separately billable procedures and treating other patients and teaching time. Please see Assessment and Plan section and the rest of the note for further information on patient assessment and treatment.
--- NOTE | 2024-06-16 21:40 | PC.NURSE ---
This patient, Randi Ervin, was admitted to Intensive Care Unit-10. Patient/family oriented to hospital policies and general routines including ID bracelet, bed and alarms, visiting hours, pain management, procedures, bathroom and other care routines, personal items, smoking policy, room service/diet, and visiting hours. Information on how to activate the Rapid Response Team has been discussed. Patient/Family are encouraged to report perceived risks to care and to ask questions if they do not understand what they are told or what they should do.
--- NOTE | 2024-06-16 22:23 | ECG_ITS ---
Test Date: 2024-06-16 22:33:11 Measurements Intervals [place] Rate: 86 P: 55 AK: 157 QRS: 9 QRSD: 84 T: -41 QT: 377 QTc: 452 Interpretive Statements SINUS RHYTHM DELAYED PRECORDIAL R/S TRANSITION MODERATE T-WAVE ABNORMALITY, CONSIDER ANTEROLATERAL ISCHEMIA BASELINE ARTIFACT- I, III, AVR, AVL, AVF ABNORMAL ECG Compared to ECG 06/16/2024 08:21:35 T-wave abnormality now present Possible ischemia now present Electronically Signed On 06-17-2024 06:54:26 SHOE LAY OUT PLANNER by Klever Newman D.O.
--- NOTE | 2024-06-16 23:15 | ECG_ITS ---
Test Date: 2024-06-16 23:12:31 Measurements Intervals [place] Rate: 86 P: 56 MS: 152 QRS: 7 QRSD: 84 T: -39 QT: 371 QTc: 446 Interpretive Statements SINUS RHYTHM DELAYED PRECORDIAL R/S TRANSITION T WAVE ABNORMALITY IN ANTEROLATERAL LEADS- CONSIDER ISCHEMIA BASELINE ARTIFACT- I, III, AVR, AVL, AVF ABNORMAL ECG Compared to ECG 06/16/2024 22:33:11 NO SIGNIFICANT CHANGE Electronically Signed On 06-17-2024 06:58:49 TEST ENG by Klever Newman D.O.
[2024-06-16] MEDS: dilTIAZem HCL CD 180 MG CAP.24HR PO (23:53)
[2024-06-16] MEDS: PANTOPRAZOLE 40 MG TABLET PO (23:53)
[2024-06-16] MEDS: traZODone HCL 50 MG TABLET BY MOUTH (23:53)
[2024-06-16] MEDS: VALSARTAN 40 MG TABLET BY MOUTH (23:53)
[2024-06-16] MEDS: DONEPEZIL HCL 10 MG TABLET PO (23:54)
[2024-06-17] VITALS (18 sets, daily range): BP systolic 98–136; BP diastolic 54–70; PULSE 72–89; RESP 18–26; TEMP 36.7–37.4; O2SAT 87–100
[2024-06-17 00:06] LABS: Partial Thromboplastin Time 85.7 Seconds (22.3-36.8)
[2024-06-17 00:29] LABS: Troponin I 0.042 ng/mL (0.000-0.034)
[2024-06-17 03:07] LABS: MRSA (PCR) NOT DETECTED (NOT DETECTE)
[2024-06-17 05:54] LABS: Hematocrit 41.7 % (37.0-47.0); Mean Corpuscular HGB Conc 31.2 g/dl (32-36); Mean Corpuscular Volume 83.4 fl (80-100); Mean Platelet Volume 10.7 fl (7.4-10.4); Platelet Count Result 280 k/mm3 (150-375); White Blood Count 9.3 K/mm3 (4.5-10.0)
[2024-06-17 06:04] LABS: Partial Thromboplastin Time 80.2 Seconds (22.3-36.8)
[2024-06-17 06:10] LABS: Alanine Aminotransferase 20 U/L (6-35); Albumin Level 3.3 g/dL (3.5-5.1); Alkaline Phosphatase 164 U/L (38-126); Anion Gap 10 mmol/L (4-12); Aspartate Amino Transferase 23 U/L (14-36); Bilirubin,Total 0.6 mg/dL (0.2-1.3); Blood Urea Nitrogen 16 mg/dL (7-17); Calcium 8.6 mg/dL (8.4-10.2); Carbon Dioxide 22 mmol/L (22-30); Chloride 108 mmol/L (98-107); Estimated CRCL calculation 52 ml/min; Estimated Glomerular Filt Rate > 60; Glucose 115 mg/dL (65-110); Magnesium 2.2 mg/dL (1.6-2.3); Sodium 140 mmol/L (137-145)
[2024-06-17] MEDS: HEPARIN SOD/D5W 100 UNITS/ML 25,000 UNITS/250 ML BAG 12 UNITS IV CONT (06:20)
[2024-06-17] MEDS: dilTIAZem HCL CD 180 MG CAP.24HR PO (08:12)
[2024-06-17] MEDS: carvediloL 6.25 MG TABLET PO (08:12)
[2024-06-17] MEDS: PANTOPRAZOLE 40 MG TABLET PO ×2 (08:12→17:09)
[2024-06-17] MEDS: ASPIRIN 81 MG ENTERIC TABLET PO (08:13)
[2024-06-17] MEDS: ESCITALOPRAM OXALATE 10 MG TABLET 20 MG PO (08:13)
[2024-06-17] MEDS: VALSARTAN 40 MG TABLET BY MOUTH (08:13)
[2024-06-17] MEDS: ENOXAPARIN 100 MG/ML SYRINGE 95 MG SUB-Q ×2 (09:55→20:49)
--- NOTE | 2024-06-17 10:11 | P.CONIN_ITS ---
Assessment and Plan Assessment and plan (1) Acute massive pulmonary embolism: Code(s): I26.99 - Other pulmonary embolism without acute cor pulmonale Status: Acute Assessment and Plan: CTA 06/15 1. Extensive pulmonary emboli throughout both lungs with high clot burden and with findings of secondary right heart strain including right ventricular and atrial enlargement. Dr. Trujillo discussed these findings with Dr. Negron at 12:20 PM. 2. Moderate-sized sliding-type hiatal hernia. Patient diagnosed with extensive bilateral PE on 06/15 this is likely secondary to lack of mobility. Patient denies any long flight or car drive pre Patient has intermediate high risk PE. Initially attempts were made to transfer patient to tertiary facility for for catheter directed embolectomy or thrombolysis due to evidence of right heart strain as she had elevated BNP and troponin but unfortunately despite contacting multiple facilities no bed has been available for last 48 hours. Patient is on waiting list at [facility]. Since then patient has been on anticoagulation and has clinically improved with improvement in shortness of breath and resolution of chest pain. I am not sure if thrombolysis or embolectomy will add further benefit at this time Meanwhile I will continue with systemic anticoagulation. I will switch patient to subcutaneous Lovenox. Will hold p.o. anticoagulation as patient may still transfer to tertiary facility Check echocardiogram and lower extremity venous Dopplers (2) Hypertension: Code(s): I10 - Essential (primary) hypertension Status: Acute Assessment and Plan: Continue Coreg (3) Dementia: Code(s): F03.90 - Unspecified dementia, unspecified severity, without behavioral disturbance, psychotic disturbance, mood disturbance, and anxiety Status: Acute Assessment and Plan: Continue Namenda (4) Hyperlipidemia: Code(s): E78.5 - Hyperlipidemia, unspecified Status: Acute Assessment and Plan: Continue statin Plan DVT prophylaxis -Lovenox Stress ulcer prophylaxis -PPI Nutrition -diet ordered Code Status - Full Code Total Critical Care Time - 30 minutes Due to a high probability of clinically significant, life threatening deterioration, the patient required my highest level of preparedness to intervene emergently and I personally spent this critical care time directly and personally managing the patient. This critical care time included obtaining a history; examining the patient; pulse oximetry; ordering and review of studies; arranging urgent treatment with development of a management plan; evaluation of patient's response to treatment; frequent reassessment; and discussions with other providers. It was exclusive of separately billable procedures and treating other patients and teaching time. Please see Assessment and Plan section and the rest of the note for further information on patient assessment and treatment Full Time Staff Interpreter Consult Note Consult date: 06/17/24 Reason for consult: Pulmonary embolism HPI: Randi Ervin is a 73 year old female dementia, hypertension, esophagitis with esophageal stricture, gastroesophageal reflux disease, duodenal ulcer, anxiety, and history of alcohol abuse o presented to the emergency department in the morning of 06/15/2024 from home for evaluation of shortness of breath. Patient reported that she twisted her left knee on [place] and that she has been less mobile since that time due to ongoing pain. Family members have encouraged her to get up and get walking but over the last several weeks she has been feeling short of breath with activity. She states she had difficulty catching her breath. She also had cough which was dry. She denied any fever. She had sensation of heart racing fast and pain with deep breathing. In the ER patient was hypoxic on room air. Chest CTA showed extensive pulmonary emboli throughout both lungs with a high clot burden findings of secondary right heart strain including right ventricular and atrial enlargement. She was started on a heparin drip and due to intermediate risk pulmonary embolism, transfer was initiated to [facility] for consideration of intervention thrombectomy. Other facilities including [facility] and [facility] were contacted but they had no bed availability. Since then patient has been at [facility] on anticoagulation. Patient was admitted to ICU due to lack of bed availability at tertiary facilities. This morning patient states she feels significantly better breathing has improved and she does not feel short of breath at rest and but only exertion. She is on 3 L nasal cannula. Tachycardia has improved and heart rate is down into 80. She states that her chest pain has resolved. All other systems were reviewed and were negative Review of Systems 2 Review of Systems: All systems reviewed & are unremarkable except as noted in HPI and below (HPI) [facility] Past Medical History Medical History Chronic kidney disease, stage 3 Duodenal ulcer Colon polyp Diverticulitis Auditory hallucinations Cognitive impairment Osteoarthritis Esophagitis Esophageal stricture Gastroesophageal reflux disease Hypertension Anxiety Depression Postmenopausal Schatzki's ring Psychophysiological insomnia Alcohol use disorder, mild, abuse Hyperlipidemia Hiatal hernia Surgical History Surgical History History of appendectomy Status post left unicompartmental knee replacement (02/2020) History of hysterectomy History of cholecystectomy Family History Family History Father Family history of premature coronary heart disease, Onset Age: 63 Sibling Patient's brother is in good health Mother Family history of malignant neoplasm of breast in first degree relative, Onset Age: 64 Patient's mother is Other Depression Diabetes mellitus Family history of cardiovascular disease Family history of malignant neoplasm Hypertension Social History Social History Social History: Surrogate medical decision maker: Rodriguez Ervin, spouse. Code status: Full code. Smoking status: Never smoker Second hand tobacco smoke exposure: No Alcohol intake: current Drinks per week: 1 Alcohol use details: Drinks perhaps the equivalent of 1 alcoholic beverage a week. She does have a history of heavy drinking. Substance use: never Substance use type: does not use Do You Feel Safe in your Home?: Yes Lack of Transportation: No Lack of Food: Never True Current Housing: I Have Housing Concerned About Future Housing: No Difficulty Paying Gas/Electric Bills: No Difficulty Paying for Meds: No Currently Unemployed: YES Education: High School Diploma/GED Difficulty w/ Childcare or Family Care: No Living arrangements: with family Occupation/Education: retired Spiritual care concerns: No Meds Home Medications and Allergies Home Medications ?Medication ?Instructions ?Recorded ?Confirmed ?Type diltiazem HCl 180 mg 180 mg PO Q12H 02/04/21 06/16/24 History capsule,extended release 24 hr aspirin 81 mg capsule 81 mg PO DAILY 04/06/22 06/15/24 History mecobalamin (vitamin B12) 5,000 5,000 mcg PO EVERY OTHER DAY 04/06/22 06/16/24 History mcg disintegrating tablet trazodone 50 mg tablet See Rx Instructions .Route 06/06/22 06/15/24 Rx .COMPLEX #30 tabs donepezil 10 mg tablet (Aricept) See Rx Instructions PO .COMPLEX 09/15/22 06/15/24 Rx #30 tabs valsartan 40 mg tablet See Rx Instructions .Route 09/23/22 06/15/24 Rx .COMPLEX #180 tabs atorvastatin 20 mg tablet 20 mg PO QPM 06/15/24 06/16/24 History carvedilol 6.25 mg tablet 6.25 mg PO DAILY 06/15/24 06/16/24 History escitalopram oxalate 20 mg tablet 20 mg PO DAILY 06/15/24 06/16/24 History hydroxyzine HCl 25 mg tablet 25 mg PO HS 06/15/24 06/16/24 History memantine 5 mg tablet 5 mg PO QPM 06/15/24 06/16/24 History omeprazole 40 mg capsule,delayed 40 mg PO DAILY 06/15/24 06/16/24 History release mecobalamin (vitamin B12) 1,000 1,000 mcg sublingual EVERY OTHER 06/16/24 06/16/24 History mcg disintegrating DAY tablet,sublingual Allergies Allergy/AdvReac Type Severity Reaction Status Date / Time Sulfa (Sulfonamide Allergy Unknown SWELLING/RA Verified 06/16/24 22:13 Antibiotics) SH Vital Signs Vital Signs - 24 hr 06/16/24 10:29 06/16/24 12:00 06/16/24 13:12 Temperature Pulse Rate 93 95 94 Respiratory Rate 17 21 H 19 Blood Pressure 121/91 H 120/79 135/99 H Pulse Oximetry 98 98 96 Oxygen Delivery Oxygen Flow Rate 06/16/24 16:36 06/16/24 17:12 06/16/24 22:00 Temperature Pulse Rate 98 95 Respiratory Rate 19 22 H Blood Pressure 149/84 H 149/84 H Pulse Oximetry 95 97 99 Oxygen Delivery Nasal Cannula Oxygen Flow Rate 4 06/17/24 00:00 06/17/24 00:00 06/17/24 00:08 Temperature 37.4 C Pulse Rate 88 85 Respiratory Rate 18 Blood Pressure 136/65 Pulse Oximetry 99 98 Oxygen Delivery Nasal Cannula Oxygen Flow Rate 4 06/17/24 02:00 06/17/24 02:09 06/17/24 04:00 Temperature Pulse Rate 77 81 Respiratory Rate 18 Blood Pressure 98/69 L Pulse Oximetry 100 96 Oxygen Delivery Nasal Cannula Oxygen Flow Rate 4 06/17/24 04:00 06/17/24 04:33 06/17/24 06:00 Temperature 37.3 C Pulse Rate 77 74 76 Respiratory Rate 18 Blood Pressure 119/54 L Pulse Oximetry 96 Oxygen Delivery Oxygen Flow Rate 06/17/24 06:07 06/17/24 08:00 06/17/24 08:00 Temperature 37.2 C Pulse Rate 72 85 Respiratory Rate 18 Blood Pressure 120/62 Pulse Oximetry 93 98 Oxygen Delivery Nasal Cannula Oxygen Flow Rate 3 06/17/24 08:00 06/17/24 08:12 Temperature 36.7 C Pulse Rate 85 84 Respiratory Rate 21 H Blood Pressure 113/70 Pulse Oximetry 95 Oxygen Delivery Oxygen Flow Rate Exam 2 Narrative: General: Pt is alert awake and in NAD Lungs/Chest: Trachea central Clear BS B/L, No crackles or wheezing. Cardiac: RRR. Normal S1 S2. No murmurs Circulation: Pedal pulses are intact and symmetrical. Abdomen: Normal bowel sounds. Obese. Soft. NT. ND. Extremities: No clubbing, cyanosis or edema. Warm : Molina in place Neurologic: Follows commands. Moves all 4 extremities PERRL Skin: No Rash Results Labs 06/17/24 05:35 06/17/24 05:35 Labs: Short CBC 06/17/24 Range/Units 05:35 WBC 9.3 (4.5-10.0) K/mm3 Hgb 13.0 (12.0-15.0) g/dL Hct 41.7 (37.0-47.0) % Plt Count 280 (150-375) k/mm3 BMP 06/17/24 05:35 Sodium 140 Potassium 4.0 Chloride 108 H Carbon Dioxide 22 BUN 16 Creatinine 0.88 Glucose 115 H Calcium 8.6 Cardiac Enzymes 06/16/24 06/16/24 Range/Units 12:49 23:32 Troponin I 0.055 H* 0.042 H* (0.000-0.034) ng/mL Liver Function 06/17/24 Range/Units 05:35 Total Bilirubin 0.6 (0.2-1.3) mg/dL AST 23 (14-36) U/L ALT 20 (6-35) U/L Alkaline Phosphatase 164 H (38-126) U/L Albumin 3.3 L (3.5-5.1) g/dL Quality VTE Prophylaxis VTE prophylaxis: pharmacologic ordered Hospitalist MIPS Advance Care Plan I have confirmed that the patient's Advanced Care Plan is present, code status is documented, or surrogate decision maker is listed in patient medical record.: Yes Medication Reconciliation I have utilized all available resources to obtain, update and review the patients current medications (includes all prescriptions, OTC, herbals, cannabis, and nutritional supplements).: Yes
[2024-06-17] MEDS: ATORVASTATIN 20 MG TABLET PO (17:09)
[2024-06-17] MEDS: MEMANTINE 5 MG TABLET PO (17:09)
[2024-06-17] MEDS: DONEPEZIL HCL 10 MG TABLET PO (20:48)
[2024-06-17] MEDS: traZODone HCL 50 MG TABLET BY MOUTH (20:48)
[2024-06-18] VITALS (16 sets, daily range): BP systolic 105–152; BP diastolic 48–92; PULSE 67–91; RESP 17–21; TEMP 36.4–36.9; O2SAT 91–96
[2024-06-18 05:14] LABS: Hematocrit 39.6 % (37.0-47.0); Hemoglobin 12.3 g/dL (12.0-15.0); Mean Corpuscular HGB Conc 31.1 g/dl (32-36); Mean Corpuscular Hemoglobin 26.3 pg (26-34); Mean Corpuscular Volume 84.6 fl (80-100); Mean Platelet Volume 10.9 fl (7.4-10.4); Platelet Count Result 257 k/mm3 (150-375); Red Blood Count 4.68 M/mm3 (4.2-5.4); White Blood Count 9.8 K/mm3 (4.5-10.0)
[2024-06-18 05:27] LABS: Partial Thromboplastin Time 24.8 Seconds (22.3-36.8)
[2024-06-18 05:31] LABS: Alanine Aminotransferase 17 U/L (6-35); Albumin Level 3.1 g/dL (3.5-5.1); Alkaline Phosphatase 138 U/L (38-126); Anion Gap 10 mmol/L (4-12); Aspartate Amino Transferase 19 U/L (14-36); Bilirubin,Total 0.7 mg/dL (0.2-1.3); Blood Urea Nitrogen 14 mg/dL (7-17); Calcium 8.5 mg/dL (8.4-10.2); Carbon Dioxide 19 mmol/L (22-30); Chloride 107 mmol/L (98-107); Estimated CRCL calculation 48 ml/min; Estimated Glomerular Filt Rate 56; Glucose 112 mg/dL (65-110); Magnesium 2.1 mg/dL (1.6-2.3); Potassium 3.9 mmol/L (3.4-5.0); Sodium 136 mmol/L (137-145)
--- NOTE | 2024-06-18 07:46 | PC.NURSE ---
This RN spoke with Rodriguez Ervin, patient . Rodriguez given overnight updates including that patient will be moving to IMU room 202
[2024-06-18] MEDS: ESCITALOPRAM OXALATE 10 MG TABLET 20 MG PO (08:02)
[2024-06-18] MEDS: PANTOPRAZOLE 40 MG TABLET PO ×2 (08:02→18:31)
[2024-06-18] MEDS: ASPIRIN 81 MG ENTERIC TABLET PO (08:02)
[2024-06-18] MEDS: carvediloL 6.25 MG TABLET PO (08:02)
--- NOTE | 2024-06-18 08:11 | PC.NURSE ---
This patient, Randi Ervin, was transferred to [[id number]] on 06/18/24 at 0811. Personal belongings sent with patient. Report given to [Natasha MERINO]. Appropriate documentation sent with patient.
[2024-06-18] MEDS: ENOXAPARIN 100 MG/ML SYRINGE 90 MG SUB-Q ×2 (11:09→20:40)
[2024-06-18] MEDS: PERFLUTREN LIPID MICROSPHERES 1.5 ML VIAL DILUTED TO 10 ML TOTAL VOLUME IV PUSH (11:30)
--- NOTE | 2024-06-18 11:55 | IVDEFINITY ---
Prior to administration of IV Definity the patient was educated on the risks and benefits of the imaging enhancing agent including potential adverse side effects. The patient verbalized understanding. Allergies were verified. No exclusion criteria were identified and at least one of the following inclusion criteria were met: 1) physician request, 2) patient technically difficult to image (per the [place] Society of Echocardiography guidelines of two or more segments not discernable within the apical view), or 3) questionable left ventricular function. ?
--- NOTE | 2024-06-18 14:30 | P.PNIM_ITS ---
Progress Note: A&P Assessment and Plan (1) Acute massive pulmonary embolism: Code(s): I26.99 - Other pulmonary embolism without acute cor pulmonale Status: Acute Assessment and Plan: CTA 06/15 1. Extensive pulmonary emboli throughout both lungs with high clot burden and with findings of secondary right heart strain including right ventricular and atrial enlargement. Dr. Trujillo discussed these findings with Dr. Negron at 12:20 PM. 2. Moderate-sized sliding-type hiatal hernia. 'Patient diagnosed with extensive bilateral PE on 06/15 this is likely secondary to lack of mobility. Patient denies any long flight or car drive pre Patient has intermediate high risk PE. Initially attempts were made to transfer patient to tertiary facility for for catheter directed embolectomy or thrombolysis due to evidence of right heart strain as she had elevated BNP and troponin but unfortunately despite contacting multiple facilities no bed has been available for last 48 hours. Patient is on waiting list at [facility]. Since then patient has been on anticoagulation and has clinically improved with improvement in shortness of breath and resolution of chest pain. I am not sure if thrombolysis or embolectomy will add further benefit at this time.' Currently on full dose Lovenox Discussed with [facility] transfer center and they requested we send over all imaging this admission. Called Radiology to send them over Awaiting ECHo and still awaiting [facility] transfer Venous doppler negative monitor closely (2) Hypertension: Code(s): I10 - Essential (primary) hypertension Status: Acute Assessment and Plan: Continue Coreg (3) Dementia: Code(s): F03.90 - Unspecified dementia, unspecified severity, without behavioral disturbance, psychotic disturbance, mood disturbance, and anxiety Status: Acute Assessment and Plan: Continue Namenda (4) Hyperlipidemia: Code(s): E78.5 - Hyperlipidemia, unspecified Status: Acute Assessment and Plan: Continue statin Plan Acute hypoxemic respiratory failure Now on Nasal cannula oxygen from PE Continue titrating and continue above care DVT prophylaxis -Lovenox Stress ulcer prophylaxis -PPI Nutrition -diet ordered Code Status - Full Code Subjective Date/time seen: 06/18/24 14:30 Interval history: Comfortable at bedside Awaiting ECHO Review of Systems Review of Systems: 12 systems were reviewed and are negativ e except for as per HPI. All systems reviewed & are unremarkable except as noted in HPI and below (HPI) Exam Narrative: General: Pt is alert awake and in NAD Lungs/Chest: Trachea central Clear BS B/L, No crackles or wheezing. Cardiac: RRR. Normal S1 S2. No murmurs Circulation: Pedal pulses are intact and symmetrical. Abdomen: Normal bowel sounds. Obese. Soft. NT. ND. Extremities: No clubbing, cyanosis or edema. Warm : Molina in place Neurologic: Follows commands. Moves all 4 extremities PERRL Skin: No Rash Objective Data Vital Signs Vital Signs: Vital Signs - 24 hr 06/17/24 16:00 06/17/24 16:00 06/17/24 16:00 Temperature 98.9 F Pulse Rate 82 79 Respiratory Rate 20 Blood Pressure 124/67 Pulse Oximetry 92 94 Oxygen Delivery Room Air Oxygen Flow Rate 06/17/24 18:00 06/17/24 20:00 06/17/24 20:00 Temperature 98.8 F Pulse Rate 87 85 Respiratory Rate 26 H Blood Pressure 134/64 Pulse Oximetry 92 91 Oxygen Delivery Room Air Oxygen Flow Rate 06/17/24 20:00 06/17/24 22:00 06/17/24 22:30 Temperature Pulse Rate 88 89 Respiratory Rate Blood Pressure Pulse Oximetry 87 L Oxygen Delivery Nasal Cannula Oxygen Flow Rate 2 06/18/24 00:00 06/18/24 00:00 06/18/24 00:00 Temperature 98.4 F Pulse Rate 76 76 Respiratory Rate 21 H Blood Pressure 109/48 L Pulse Oximetry 96 95 Oxygen Delivery Nasal Cannula Oxygen Flow Rate 2 06/18/24 02:00 06/18/24 04:00 06/18/24 04:00 Temperature Pulse Rate 74 67 Respiratory Rate Blood Pressure Pulse Oximetry 94 Oxygen Delivery Nasal Cannula Oxygen Flow Rate 2 06/18/24 04:00 06/18/24 06:00 06/18/24 08:00 Temperature 98.0 F 97.6 F Pulse Rate 67 70 76 Respiratory Rate 17 21 H Blood Pressure 105/48 L 142/78 H Pulse Oximetry 94 95 Oxygen Delivery Oxygen Flow Rate 06/18/24 08:00 06/18/24 08:00 06/18/24 08:02 Temperature Pulse Rate 82 76 Respiratory Rate Blood Pressure Pulse Oximetry 95 Oxygen Delivery Nasal Cannula Oxygen Flow Rate 2 Intake/Output Intake/Output: Intake & Output 06/15/24 06/16/24 06/17/24 06/18/24 23:59 23:59 23:59 23:59 Intake Total 86.2 250.9 1378.0 500 Output Total 225 500 650 Balance 86.2 25.9 878.0 -150 Meds/Results Medications: Active Medications Generic Name Dose Route Start Last Admin Trade Name Freq PRN Reason Stop Dose Admin Acetaminophen 650 mg 06/16/24 22:14 Acetaminophen 325 Mg Tablet PO Q6H PRN Mild Pain (1-3) or Fever Aspirin 81 mg 06/17/24 09:00 06/18/24 08:02 Aspirin 81 Mg Enteric Tablet PO 81 mg QAM SHEREEN Administration Atorvastatin Calcium 20 mg 06/17/24 18:00 06/17/24 17:09 Atorvastatin 20 Mg Tablet PO 20 mg QPM SHEREEN Administration Carvedilol 6.25 mg 06/17/24 08:00 06/18/24 08:02 Carvedilol 6.25 Mg Tablet PO 6.25 mg DAILY@0800 SHEREEN Administration Diltiazem HCl 180 mg 06/16/24 22:20 06/17/24 08:12 Diltiazem Hcl Cd 180 Mg Cap.24hr PO 180 mg Q12HR SHEREEN Administration Donepezil HCl 10 mg 06/16/24 22:20 06/17/24 20:48 Donepezil Hcl 10 Mg Tablet PO 10 mg HS SHEREEN Administration Enoxaparin Sodium 90 mg 06/18/24 09:00 06/18/24 11:09 Enoxaparin 100 Mg/Ml Syringe SUB-Q 90 mg Q12HR SHEREEN Administration Escitalopram Oxalate 20 mg 06/17/24 09:00 06/18/24 08:02 Escitalopram Oxalate 10 Mg Tablet PO 20 mg DAILY SHEREEN Administration Memantine 5 mg 06/17/24 18:00 06/17/24 17:09 Memantine 5 Mg Tablet PO 5 mg QPM SHEREEN Administration Morphine Sulfate 2 mg 06/16/24 22:37 Morphine Sulfate (*Crx) 2 Mg/Ml Inj IV PUSH Q4H PRN Pain Rated 7-10 Pantoprazole Sodium 40 mg 06/17/24 09:00 06/18/24 08:02 Pantoprazole 40 Mg Tablet PO 40 mg BID SHEREEN Administration Trazodone HCl 50 mg 06/16/24 22:20 06/17/24 20:48 Trazodone Hcl 50 Mg Tablet BY MOUTH 50 mg HS SHEREEN Administration Valsartan 40 mg 06/16/24 22:20 06/17/24 08:13 Valsartan 40 Mg Tablet BY MOUTH 40 mg Q12HR SHEREEN Administration Radiology Results: ITS Impressions Chest CTA 06/15/24 12:18 IMPRESSION: 1. Extensive pulmonary emboli throughout both lungs with high clot burden and with findings of secondary right heart strain including right ventricular and atrial enlargement. Dr. Trujillo discussed these findings with Dr. Negron at 12:20 PM. 2. Moderate-sized sliding-type hiatal hernia. Venous Doppler Study 06/17/24 12:49 IMPRESSION: 1. No deep venous thrombosis. Labs Labs: Laboratory Results - last 24 hr 06/18/24 04:55 WBC 9.8 RBC 4.68 Hgb 12.3 Hct 39.6 MCV 84.6 MCH 26.3 MCHC 31.1 L RDW 17.0 H Plt Count 257 MPV 10.9 H APTT 24.8 Sodium 136 L Potassium 3.9 Chloride 107 Carbon Dioxide 19 L Anion Gap 10 BUN 14 Creatinine 0.97 Estim Creat Clear Calc 48 Estimated GFR 56 L Glucose 112 H Calcium 8.5 Magnesium 2.1 Total Bilirubin 0.7 AST 19 ALT 17 Alkaline Phosphatase 138 H Total Protein 6.0 L Albumin 3.1 L Quality VTE Prophylaxis VTE prophylaxis: pharmacologic ordered
[2024-06-18] MEDS: ATORVASTATIN 20 MG TABLET PO (18:30)
[2024-06-18] MEDS: MEMANTINE 5 MG TABLET PO (18:31)
[2024-06-18] MEDS: traZODone HCL 50 MG TABLET BY MOUTH (20:40)
[2024-06-18] MEDS: DONEPEZIL HCL 10 MG TABLET PO (20:40)
--- NOTE | 2024-06-18 22:14 | ECHO_ITS ---
Patient Info Name: Randi Ervin Age: 73 years : 1950 Gender: Female Ht: 63 in Wt: 203 lbs BSA: 2.07 m2 HR: 67 bpm BP: 109 / 48 mmHg Technical Quality: Poor Exam Date: 06/18/2024 10:49 AM Exam Location: Echo Lab Patient Status: Inpatient Admit Date: 06/16/2024 Staff Ordering Physician: Mae Vera PA-C Tourist Information Assistant: Abbey Garcia RDCS Attending Provider: Sami Murry MD Referring Physician: Chuy STEWART; Exam Type: CA echo dop color flow w con Study Info Indications - SUBMASSIVE PULMONARY EMBOLI Complete two-dimensional, color flow and Doppler transthoracic echocardiogram is performed with contrast to opacify the left ventricle and to improve the deliniation of the left ventricle endocardial borders. Contrast/Agitated Saline Contrast/Ag. Saline: Definity Amount: 2.00 ml Existing IV Access: Yes Reason for Poor Study: poor echocardiographic windows Summary 1. Left ventricular systolic function is normal, estimated at 65-70%. 2. There is moderately increased left ventricular wall thickness. 3. The left ventricular diastolic function is grade I diastolic dysfunction. 4. Right ventricular chamber dimension is moderately enlarged. 5. Right ventricular systolic function is normal. 6. Right atrial chamber dimension is mildly enlarged. 7. There is mild tricuspid valve regurgitation. 8. Severe pulmonary hypertension, estimated pulmonary arterial systolic pressure is 58 mmHg. 9. There is trivial pericardial effusion. Left Ventricle Left ventricular chamber dimension is normal. Left ventricular systolic function is normal, estimated at 65-70%. There is moderately increased left ventricular wall thickness. Left ventricular septal wall motion is normal. The left ventricular diastolic function is grade I diastolic dysfunction. Right Ventricle Right ventricular chamber dimension is moderately enlarged. Right ventricular systolic function is normal. Left Atria Left atrial chamber dimension is normal. Right Atria Right atrial chamber dimension is mildly enlarged. Aortic Valve The aortic valve is trileaflet. There is no aortic valve sclerosis. There is no aortic valve stenosis. There is mild aortic valve regurgitation. Pulmonic Valve The pulmonic valve is normal. There is no pulmonic valve stenosis. There is no pulmonic regurgitation. Mitral Valve The mitral valve has normal leaflets. There is no mitral valve stenosis. There is no mitral valve regurgitation. Tricuspid Valve The tricuspid valve leaflets are normal. There is no significant tricuspid valve stenosis. There is mild tricuspid valve regurgitation. Severe pulmonary hypertension, estimated pulmonary arterial systolic pressure is 58 mmHg. Pericardium/Pleural There is trivial pericardial effusion. Inferior Vena Cava Normal inferior vena cava with <50% collapse upon inspiration consistent with elevated right atrial pressure, 10 mmHg. Aorta The aortic root size at the sinus of Valsalva is normal. The prox ascending aorta size is normal. Left Ventricular Outflow Tract Name Value Normal LVOT 2D LVOT Diameter 1.89 cm LVOT Doppler LVOT Peak Gradient 4 mmHg LVOT Mean Gradient 3 mmHg LVOT VTI 22.29 cm LVOT VTI/AV VTI Ratio 1.00 LVOT Stroke Volume 62.80 ml LVOT CO 3.97 l/min LVOT CI 1.92 L/min/m2 Pulmonic Valve Name Value Normal RVOT Doppler RVOT Peak Gradient 1 mmHg PV Doppler PV Peak Gradient 2 mmHg Mitral Valve Name Value Normal MV Doppler MV Decel [place] 171.80 cm/s2 MV PHT 0 s MV Area (PHT) 3.26 cm2 4.00-5.00 MV Diastolic Function MV E Peak Velocity 39.92 cm/s MV A Peak Velocity 57.06 cm/s MV E/A 0.70 MV Decel Time 0 s MV Annular TDI MV E/e' (Septal) 4.72 <=8.00 MV E/e' (Lateral) 3.67 <=8.00 MV E/e' (Average) 4.20 Tricuspid Valve Name Value Normal TV Regurgitation Doppler TR Peak Velocity 345.10 cm/s TR Peak Gradient 40 mmHg Estimated PAP/RSVP RA Pressure 10 mmHg <=5 PA Systolic Pressure 58 mmHg <36 RV Systolic Pressure 58 mmHg <36 Aorta Name Value Normal Ascending Aorta Ao Root Diameter (MM) 3.20 cm Ao Root Diam Index (MM) 1.55 cm/m2 Aortic Valve Name Value Normal AV Doppler AV Peak Velocity 138.87 cm/s AV Peak Gradient 5 mmHg AV Mean Gradient 3 mmHg AV VTI 22.38 cm AV Area (Cont Eq VTI) 2.81 cm2 >=3.00 AV Area (Cont Eq Federico) 2.72 cm2 AV Regurgitation 2D LVOT Area 2.82 cm2 Ventricles Name Value Normal LV Dimensions 2D/MM IVS Diastolic Thickness (2D) 1.41 cm 0.60-1.00 LVID Diastole (2D) 3.24 cm 3.80-5.20 LVIW Diastolic Thickness (2D) 1.42 cm 0.60-0.90 LVID Systole (2D) 2.05 cm 2.20-3.50 LVOT Diameter 1.89 cm LV Mass (2D Cubed) 158.29 g 67.00-162.00 LV Mass Index (2D Cubed) 0.01 g/cm2 0.00-0.01 Relative Wall Thickness (2D) 0.88 LV Fractional Shortening/Ejection Fraction 2D/MM LV Fractional Shortening (2D) 37 % 27-45 LV EF (2D Teicholz) 68 % 54-74 LV Diastolic Volume (4C MOD) 49.93 ml LV EF (4C MOD) 68 % LV Diastolic Volume (2C MOD) 42.49 ml LV EF (2C MOD) 68 % LV Diastolic Volume (BP MOD) 45.92 ml 46.00-106.00 LV Diastolic Volume Index (BP MOD) 0.02 l/m2 0.03-0.06 LV Systolic Volume (BP MOD) 14.87 ml 14.00-42.00 LV Systolic Volume Index (BP MOD) 0.01 l/m2 0.01-0.02 LV EF (BP MOD) 68 % 54-74 LV Diastolic Length (4C) 6.54 cm LV Systolic Length (4C) 5.37 cm LV Stroke Volume (4C MOD) 34.01 ml Atria Name Value Normal LA Dimensions LA Dimension (MM) 3.72 cm 2.70-3.80 LA Volume (4C A-L) 46.09 ml LA Volume (BP A-L) 46.59 ml RA Dimensions RA Area (4C) 26.31 cm2 <=18.00 Report Signatures
[2024-06-19] VITALS (11 sets, daily range): BP systolic 133–144; BP diastolic 61–71; PULSE 68–91; RESP 12–18; TEMP 36.4–37.2; O2SAT 91–98
[2024-06-19 05:08] LABS: Hematocrit 40.5 % (37.0-47.0); Hemoglobin 12.7 g/dL (12.0-15.0); Mean Corpuscular HGB Conc 31.4 g/dl (32-36); Mean Corpuscular Hemoglobin 26.4 pg (26-34); Mean Corpuscular Volume 84.2 fl (80-100); Mean Platelet Volume 10.9 fl (7.4-10.4); Platelet Count Result 269 k/mm3 (150-375); Red Blood Count 4.81 M/mm3 (4.2-5.4); Red Cell Distribution Width 16.7 % (11.5-14.5); White Blood Count 8.2 K/mm3 (4.5-10.0)
[2024-06-19 05:30] LABS: Alanine Aminotransferase 16 U/L (6-35); Albumin Level 3.1 g/dL (3.5-5.1); Alkaline Phosphatase 136 U/L (38-126); Anion Gap 9 mmol/L (4-12); Aspartate Amino Transferase 16 U/L (14-36); Bilirubin,Total 0.6 mg/dL (0.2-1.3); Blood Urea Nitrogen 15 mg/dL (7-17); Calcium 8.8 mg/dL (8.4-10.2); Carbon Dioxide 26 mmol/L (22-30); Chloride 106 mmol/L (98-107); Estimated CRCL calculation 47 ml/min; Estimated Glomerular Filt Rate 55; Glucose 104 mg/dL (65-110); Potassium 3.8 mmol/L (3.4-5.0); Sodium 141 mmol/L (137-145)
--- NOTE | 2024-06-19 08:45 | ECG_ITS ---
Test Date: 2024-06-19 09:06:09 Measurements Intervals [place] Rate: 73 P: 63 FL: 159 QRS: -1 QRSD: 87 T: 11 QT: 391 QTc: 434 Interpretive Statements SINUS RHYTHM BORDERLINE R WAVE PROGRESSION, ANTERIOR LEADS BORDERLINE T WAVE ABNORMALITY- ANTEROLAT/INF LEADS BORDERLINE ECG Compared to ECG 06/16/2024 23:12:31 Possible ischemia no longer present Electronically Signed On 06-19-2024 09:10:18 RELIGIOUS ACTIVITIES DIRECTOR by Klever Newman D.O.
--- NOTE | 2024-06-19 08:53 | P.PNIM_ITS ---
Progress Note: A&P Assessment and Plan (1) Acute massive pulmonary embolism: Code(s): I26.99 - Other pulmonary embolism without acute cor pulmonale Status: Acute Assessment and Plan: CTA 06/15 1. Extensive pulmonary emboli throughout both lungs with high clot burden and with findings of secondary right heart strain including right ventricular and atrial enlargement. Dr. Trujillo discussed these findings with Dr. Negron at 12:20 PM. 2. Moderate-sized sliding-type hiatal hernia. 'Patient diagnosed with extensive bilateral PE on 06/15 this is likely secondary to lack of mobility. Patient denies any long flight or car drive pre Patient has intermediate high risk PE. Initially attempts were made to transfer patient to tertiary facility for for catheter directed embolectomy or thrombolysis due to evidence of right heart strain as she had elevated BNP and troponin but unfortunately despite contacting multiple facilities no bed has been available for last 48 hours. Patient is on waiting list at [facility]. Since then patient has been on anticoagulation and has clinically improved with improvement in shortness of breath and resolution of chest pain. I am not sure if thrombolysis or embolectomy will add further benefit at this time.' Discontinued full dose Lovenox Started Eliquis 10 mg PO BID x 7 days and then 5 mg PO BID As per previous hospitalist ,discussed with [facility] transfer center and they requested we send over all imaging this admission. Called Radiology to send them over Reviewed ECHo and still awaiting [facility] transfer Venous doppler negative monitor closely (2) Hypertension: Code(s): I10 - Essential (primary) hypertension Status: Acute Assessment and Plan: Continue Coreg (3) Dementia: Code(s): F03.90 - Unspecified dementia, unspecified severity, without behavioral disturbance, psychotic disturbance, mood disturbance, and anxiety Status: Acute Assessment and Plan: Continue Namenda (4) Hyperlipidemia: Code(s): E78.5 - Hyperlipidemia, unspecified Status: Acute Assessment and Plan: Continue statin Plan Acute hypoxemic respiratory failure Now on Nasal cannula oxygen from PE Continue titrating and continue above care DVT prophylaxis -Lovenox Stress ulcer prophylaxis -PPI Nutrition -diet ordered Code Status - Full Code Subjective Date/time seen: 06/19/24 08:53 Interval history: Echo shows no evidence of right heart strain. Will discontinue Lovenox and start to oral Eliquis. Patient has a remote history pulmonary embolism at the age of 18. Consulted mine analyst. Review of Systems Review of Systems: 12 systems were reviewed and are negativ e except for as per HPI. All systems reviewed & are unremarkable except as noted in HPI and below (HPI) Exam Narrative: General: Pt is alert awake and in NAD Lungs/Chest: Trachea central Clear BS B/L, No crackles or wheezing. Cardiac: RRR. Normal S1 S2. No murmurs Circulation: Pedal pulses are intact and symmetrical. Abdomen: Normal bowel sounds. Obese. Soft. NT. ND. Extremities: No clubbing, cyanosis or edema. Warm : Molina in place Neurologic: Follows commands. Moves all 4 extremities PERRL Skin: No Rash Objective Data Vital Signs Vital Signs: Vital Signs - 24 hr 06/18/24 10:00 06/18/24 12:00 06/18/24 12:00 Temperature Pulse Rate 70 81 Respiratory Rate Blood Pressure Pulse Oximetry 94 Oxygen Delivery Nasal Cannula Oxygen Flow Rate 2 06/18/24 12:00 06/18/24 14:00 06/18/24 16:00 Temperature 98.4 F 98.2 F Pulse Rate 73 80 85 Respiratory Rate 18 20 Blood Pressure 129/92 H 140/59 L Pulse Oximetry 94 93 Oxygen Delivery Oxygen Flow Rate 06/18/24 16:00 06/18/24 16:00 06/18/24 16:25 Temperature Pulse Rate 80 80 Respiratory Rate Blood Pressure Pulse Oximetry 93 96 Oxygen Delivery Nasal Cannula Nasal Cannula Oxygen Flow Rate 2 2 06/18/24 18:00 06/18/24 19:57 06/18/24 20:00 Temperature 98.5 F Pulse Rate 91 87 87 Respiratory Rate 18 18 Blood Pressure 141/62 H Pulse Oximetry 92 92 Oxygen Delivery Nasal Cannula Oxygen Flow Rate 2 06/18/24 20:00 06/18/24 21:48 06/18/24 23:52 Temperature 98.0 F Pulse Rate 87 82 83 Respiratory Rate 18 Blood Pressure 152/62 H Pulse Oximetry 91 Oxygen Delivery Oxygen Flow Rate 06/19/24 00:00 06/19/24 00:00 06/19/24 02:00 Temperature Pulse Rate 82 82 78 Respiratory Rate 18 Blood Pressure Pulse Oximetry 91 Oxygen Delivery Nasal Cannula Oxygen Flow Rate 2 06/19/24 03:50 06/19/24 04:00 06/19/24 04:00 Temperature 97.5 F L Pulse Rate 78 70 70 Respiratory Rate 18 18 Blood Pressure 140/68 Pulse Oximetry 95 95 Oxygen Delivery Nasal Cannula Oxygen Flow Rate 2 06/19/24 06:00 06/19/24 08:00 Temperature 98.0 F Pulse Rate 68 73 Respiratory Rate 12 Blood Pressure 144/61 H Pulse Oximetry 92 Oxygen Delivery Oxygen Flow Rate Intake/Output Intake/Output: Intake & Output 06/16/24 06/17/24 06/18/24 06/19/24 23:59 23:59 23:59 23:59 Intake Total 250.9 1378.0 1240 Output Total 734 809 8595 500 Balance 25.9 878.0 -710 500 Meds/Results Medications: Active Medications Generic Name Dose Route Start Last Admin Trade Name Freq PRN Reason Stop Dose Admin Acetaminophen 650 mg 06/16/24 22:14 Acetaminophen 325 Mg Tablet PO Q6H PRN Mild Pain (1-3) or Fever Aspirin 81 mg 06/17/24 09:00 06/18/24 08:02 Aspirin 81 Mg Enteric Tablet PO 81 mg QAM SHEREEN Administration Atorvastatin Calcium 20 mg 06/17/24 18:00 06/18/24 18:30 Atorvastatin 20 Mg Tablet PO 20 mg QPM SHEREEN Administration Carvedilol 6.25 mg 06/17/24 08:00 06/18/24 08:02 Carvedilol 6.25 Mg Tablet PO 6.25 mg DAILY@0800 SHEREEN Administration Diltiazem HCl 180 mg 06/16/24 22:20 06/17/24 08:12 Diltiazem Hcl Cd 180 Mg Cap.24hr PO 180 mg Q12HR SHEREEN Administration Donepezil HCl 10 mg 06/16/24 22:20 06/18/24 20:40 Donepezil Hcl 10 Mg Tablet PO 10 mg HS SHEREEN Administration Enoxaparin Sodium 90 mg 06/18/24 09:00 06/18/24 20:40 Enoxaparin 100 Mg/Ml Syringe SUB-Q 90 mg Q12HR SHEREEN Administration Escitalopram Oxalate 20 mg 06/17/24 09:00 06/18/24 08:02 Escitalopram Oxalate 10 Mg Tablet PO 20 mg DAILY SHEREEN Administration Memantine 5 mg 06/17/24 18:00 06/18/24 18:31 Memantine 5 Mg Tablet PO 5 mg QPM SHEREEN Administration Morphine Sulfate 2 mg 06/16/24 22:37 Morphine Sulfate (*Crx) 2 Mg/Ml Inj IV PUSH Q4H PRN Pain Rated 7-10 Pantoprazole Sodium 40 mg 06/17/24 09:00 06/18/24 18:31 Pantoprazole 40 Mg Tablet PO 40 mg BID SHEREEN Administration Trazodone HCl 50 mg 06/16/24 22:20 06/18/24 20:40 Trazodone Hcl 50 Mg Tablet BY MOUTH 50 mg HS SHEREEN Administration Valsartan 40 mg 06/16/24 22:20 06/17/24 08:13 Valsartan 40 Mg Tablet BY MOUTH 40 mg Q12HR SHEREEN Administration Radiology Results: ITS Impressions Chest CTA 06/15/24 12:18 IMPRESSION: 1. Extensive pulmonary emboli throughout both lungs with high clot burden and with findings of secondary right heart strain including right ventricular and atrial enlargement. Dr. Trujillo discussed these findings with Dr. Negron at 12:20 PM. 2. Moderate-sized sliding-type hiatal hernia. Venous Doppler Study 06/17/24 12:49 IMPRESSION: 1. No deep venous thrombosis. Labs Labs: Laboratory Results - last 24 hr 06/19/24 04:25 WBC 8.2 RBC 4.81 Hgb 12.7 Hct 40.5 MCV 84.2 MCH 26.4 MCHC 31.4 L RDW 16.7 H Plt Count 269 MPV 10.9 H Sodium 141 Potassium 3.8 Chloride 106 Carbon Dioxide 26 Anion Gap 9 BUN 15 Creatinine 0.98 Estim Creat Clear Calc 47 Estimated GFR 55 L Glucose 104 Calcium 8.8 Magnesium 2.0 Total Bilirubin 0.6 AST 16 ALT 16 Alkaline Phosphatase 136 H Total Protein 6.0 L Albumin 3.1 L Quality VTE Prophylaxis VTE prophylaxis: pharmacologic ordered Hospitalist [facility] Advance Care Plan I have confirmed that the patient's Advanced Care Plan is present, code status is documented, or surrogate decision maker is listed in patient medical record.: Yes Medication Reconciliation I have utilized all available resources to obtain, update and review the patients current medications (includes all prescriptions, OTC, herbals, cannabis, and nutritional supplements).: Yes
[2024-06-19] MEDS: ENOXAPARIN 100 MG/ML SYRINGE 90 MG SUB-Q (09:58)
[2024-06-19] MEDS: PANTOPRAZOLE 40 MG TABLET PO ×2 (09:59→17:50)
[2024-06-19] MEDS: ASPIRIN 81 MG ENTERIC TABLET PO (09:59)
[2024-06-19] MEDS: ESCITALOPRAM OXALATE 10 MG TABLET 20 MG PO (09:59)
[2024-06-19] MEDS: carvediloL 6.25 MG TABLET PO (10:00)
[2024-06-19] MEDS: MEMANTINE 5 MG TABLET PO (17:50)
[2024-06-19] MEDS: ATORVASTATIN 20 MG TABLET PO (17:50)
[2024-06-19] MEDS: traZODone HCL 50 MG TABLET BY MOUTH (20:43)
[2024-06-19] MEDS: APIXABAN 5 MG TABLET 10 MG PO (20:43)
[2024-06-19] MEDS: DONEPEZIL HCL 10 MG TABLET PO (20:43)
--- NOTE | 2024-06-19 21:06 | PC.NURSE ---
This patient, Randi Ervin, was transferred to [facility] on 06/19/24 at 1445. Personal belongings sent with patient. Report given to Gricel MERINO. Appropriate documentation sent with patient.
[2024-06-20] VITALS (7 sets, daily range): BP systolic 123–135; BP diastolic 60–62; PULSE 66–81; RESP 14–16; TEMP 36.8–37.1; O2SAT 94–97
[2024-06-20 06:22] LABS: Hematocrit 39.2 % (37.0-47.0); Hemoglobin 12.4 g/dL (12.0-15.0); Mean Corpuscular HGB Conc 31.6 g/dl (32-36); Mean Corpuscular Hemoglobin 26.2 pg (26-34); Mean Corpuscular Volume 82.7 fl (80-100); Mean Platelet Volume 10.4 fl (7.4-10.4); Platelet Count Result 253 k/mm3 (150-375); Red Blood Count 4.74 M/mm3 (4.2-5.4); Red Cell Distribution Width 16.6 % (11.5-14.5); White Blood Count 9.3 K/mm3 (4.5-10.0)
[2024-06-20 06:39] LABS: Alanine Aminotransferase 25 U/L (6-35); Albumin Level 3.4 g/dL (3.5-5.1); Alkaline Phosphatase 142 U/L (38-126); Anion Gap 9 mmol/L (4-12); Aspartate Amino Transferase 31 U/L (14-36); Bilirubin,Total 0.6 mg/dL (0.2-1.3); Blood Urea Nitrogen 13 mg/dL (7-17); Calcium 8.7 mg/dL (8.4-10.2); Carbon Dioxide 23 mmol/L (22-30); Chloride 106 mmol/L (98-107); Estimated CRCL calculation 54 ml/min; Estimated Glomerular Filt Rate > 60; Glucose 102 mg/dL (65-110); Magnesium 1.8 mg/dL (1.6-2.3); Potassium 3.9 mmol/L (3.4-5.0); Sodium 138 mmol/L (137-145)
[2024-06-20] MEDS: APIXABAN 5 MG TABLET 10 MG PO (08:25)
[2024-06-20] MEDS: ESCITALOPRAM OXALATE 10 MG TABLET 20 MG PO (08:25)
[2024-06-20] MEDS: carvediloL 6.25 MG TABLET PO (08:26)
[2024-06-20] MEDS: PANTOPRAZOLE 40 MG TABLET PO (08:26)
[2024-06-20] MEDS: ASPIRIN 81 MG ENTERIC TABLET PO (08:26)
--- NOTE | 2024-06-20 09:16 | P.DS_ITS ---
DS: Admitting Diagnosis Discharge Date 06/20/2024 Admitting Diagnosis Pulmonary embolism DS: Discharge Diagnosis Discharge Diagnosis (1) Acute massive pulmonary embolism: Code(s): I26.99 - Other pulmonary embolism without acute cor pulmonale Status: Acute Assessment and Plan: Please refer to hospital course for brief summary CTA 06/15 1. Extensive pulmonary emboli throughout both lungs with high clot burden and with findings of secondary right heart strain including right ventricular and atrial enlargement. Dr. Trujilol discussed these findings with Dr. Negron at 12:20 PM. 2. Moderate-sized sliding-type hiatal hernia. 'Patient diagnosed with extensive bilateral PE on 06/15 this is likely secondary to lack of mobility. Patient denies any long flight or car drive pre Patient has intermediate high risk PE. Initially attempts were made to transfer patient to tertiary facility for for catheter directed embolectomy or thrombolysis due to evidence of right heart strain as she had elevated BNP and troponin but unfortunately despite contacting multiple facilities no bed has been available for last 48 hours. Patient is on waiting list at [facility]. Since then patient has been on anticoagulation and has clinically improved with improvement in shortness of breath and resolution of chest pain. I am not sure if thrombolysis or embolectomy will add further benefit at this time.' Discontinued full dose Lovenox Started Eliquis 10 mg PO BID x 7 days and then 5 mg PO BID As per previous hospitalist ,discussed with [facility] transfer center and they requested we send over all imaging this admission. Called Radiology to send them over Reviewed ECHo and still awaiting [facility] transfer Venous doppler negative monitor closely (2) Hypertension: Code(s): I10 - Essential (primary) hypertension Status: Acute Assessment and Plan: Continue Coreg (3) Dementia: Code(s): F03.90 - Unspecified dementia, unspecified severity, without behavioral disturbance, psychotic disturbance, mood disturbance, and anxiety Status: Acute Assessment and Plan: Continue Namenda (4) Hyperlipidemia: Code(s): E78.5 - Hyperlipidemia, unspecified Status: Acute Assessment and Plan: Continue statin DS: Summary Hospital Course Hospital Course: 73-year-old female with history of dementia, hypertension, esophagitis with esophageal stricture, gastroesophageal reflux disease, duodenal ulcer, anxiety, and alcohol abuse (he has cut back significantly and probably does not even drink the equivalent of 1 alcoholic beverage a week now) who presented to the emergency department in the morning of 06/15/2024 via private vehicle from home for evaluation of shortness of breath. The patient and her provide the following history. She reports that she twisted her left knee on [place] [address] and that she has been less mobile since that time due to ongoing pain. Family members have encouraged her to get up and get walking but over the last several weeks she has been feeling short of breath with activity. Yesterday morning she had acute worsening of her shortness of breath associated with sensations of racing heart and mild pleuritic pain and she came in for evaluation. Vital signs were stable on arrival to the ED although her SpO2 dropped to 88% on room air and she was started on supplemental oxygen. Chest CTA showed extensive pulmonary emboli throughout both lungs with a high clot burden findings of secondary right heart strain including right ventricular and atrial enlargement. She was started on a heparin drip and due to intermediate risk pulmonary embolism, transfer was initiated to [facility] for consideration of intervention. Other facilities including [facility] and [facility] were contacted but they had no bed availability. She is being admitted in this setting while awaiting transfer. At the time my evaluation she is lying supine in bed and looks comfortable. Her blood pressures and heart rate have been stable and she is currently on 4 L nasal cannula. She does not have current complaints and denies syncope, near syncope, chest pain, pleuritic pain, palpitations, significant shortness of breath, nausea, vomiting, sweats, lower extremity edema, and calf pain. She denies history of venous thromboembolism and malignancy. I assumed care on 06/19: Patient was initially approved to transferred to [facility]. Initially the CTA performed on 06/15 showed findings of secondary right heart strain including right ventricular and atrial enlargement but the echocardiogram which was done on 06/19 shows no evidence of right heart strain. Currently patient does not have any symptoms of a palpitation, chest pain or shortness of breath. Initially patient was receiving Lovenox and I switched to apixaban 10 mg p.o. b.i.d. for 7 days and continue apixaban 5 mg p.o. b.i.d.. I consulted Dr. Arenas for continued of care and for anti coagulation period. Of note patient had previous pulmonary embolism at the age of 18. During my discussion with the patient and her preferred to get discharge rather transferring to another hospital. Since there is no evidence of right heart strain and no symptoms patient is safe to discharge from my standpoint of view and advised to closely follow up with Dr. Arenas for further anticoagulation opinion and coagulopathy workup. Status at Discharge Cognitive/behavioral status at discharge: Stable Time Spent with Patient Time attestation: Total time spent providing and/or coordinating discharge services: 45 minute Exam Narrative: General: Pt is alert awake and in NAD Lungs/Chest: Trachea central Clear BS B/L, No crackles or wheezing. Cardiac: RRR. Normal S1 S2. No murmurs Circulation: Pedal pulses are intact and symmetrical. Abdomen: Normal bowel sounds. Obese. Soft. NT. ND. Extremities: No clubbing, cyanosis or edema. Warm : Molina in place Neurologic: Follows commands. Moves all 4 extremities PERRL Skin: No Rash DS: Data Data Completed and Pending Labs on day of discharge: Labs from last 24 hours 06/20/24 06:05 WBC 9.3 RBC 4.74 Hgb 12.4 Hct 39.2 MCV 82.7 MCH 26.2 MCHC 31.6 L RDW 16.6 H Plt Count 253 MPV 10.4 Sodium 138 Potassium 3.9 Chloride 106 Carbon Dioxide 23 Anion Gap 9 BUN 13 Creatinine 0.86 Estim Creat Clear Calc 54 Estimated GFR > 60 Glucose 102 Calcium 8.7 Magnesium 1.8 Total Bilirubin 0.6 AST 31 ALT 25 Alkaline Phosphatase 142 H Total Protein 6.0 L Albumin 3.4 L Discharge Plan Discharge Attending physician on discharge: Maikel Whitfield Consulting providers: Geraldo Recinos; Elías Arenas Discharging Clinician: Maikel Whitfield Patient Disposition: Home, Self-Care Activity: as tolerated Diet: heart healthy Discharge Instructions: Please complete Eliquis 10 mg PO BID until morning 06/26/2024. Please take Eliquis 5 mg PO BID from evening 06/26/2024. Please return to ED if any signs of palpitation, shortness of breath, chest pain or any other concerning symptoms. Please follow-up with (Manufacturer Agent/Oncologist) for continuation of blood thinner and coagulopathy workup. Holding Diltiazem 180 mg PO BID.Please discuss with your PCP if you want to continue. Check blood pressure 1 to 2 times a day. Record and bring into your doctor for review. Call your doctor if your blood pressure is greater than 180/110 or less than 90/45. Walk with cane or other assist device. Take precautions to avoid falls. Rise slowly from a lying or sitting position. Pause before standing or walking. Contact your doctor or call 911 and come to the Emergency Room if you have any type of trauma, lightheadedness with standing or other worrisome symptoms. Avoid NSAIDs (ibuprofen, naproxen, Aleve). Tylenol is safe to take. Follow-up with your primary care provider in 1-2 weeks. Please call for appointment. Follow-up with Cardiology in 2-4 weeks. Please call for an appointment. Thank you for using [facility] for your health care needs. Patient Instructions: Antibiotic Form Patient Language: Marshallese Stand Alone Forms: General Discharge Information Follow-up/Referrals: Elías Arenas MD [Physician] - (Please complete Eliquis 10 mg PO BID until morning 06/26/2024. Please take Eliquis 5 mg PO BID from evening 06/26/2024. Please return to ED if any signs of palpitation, shortness of breath, chest pain or any other concerning symptoms. Please follow-up with (Manufacturer Agent/Oncologist) for continuation of blood thinner and coagulopathy workup.) April,Manoj Massey MD [Primary Care Provider] - (Please complete Eliquis 10 mg PO BID until morning 06/26/2024. Please take Eliquis 5 mg PO BID from evening 06/26/2024. Please return to ED if any signs of palpitation, shortness of breath, chest pain or any other concerning symptoms. Please follow-up with (Manufacturer Agent/Oncologist) for continuation of blood thinner and coagulopathy workup. Holding Diltiazem 180 mg PO BID.Please discuss with your PCP if you want to continue.) Discharge Medications: New Eliquis 5 mg Tablet 10 mg PO Q12HR Qty: 20 0RF Rx Instructions: Please complete Eliquis 10 mg PO BID until morning 06/26/2024. Please take Eliquis 5 mg PO BID from evening 06/26/2024. Eliquis 5 mg tablet 5 mg PO BID Qty: 60 0RF Rx Instructions: Please complete Eliquis 10 mg PO BID until morning 06/26/2024. Please take Eliquis 5 mg PO BID from evening 06/26/2024. Continued mecobalamin (vitamin B12) 5,000 mcg tablet,disintegrating 5,000 mcg PO EVERY OTHER DAY carvedilol 6.25 mg tablet 6.25 mg PO DAILY atorvastatin 20 mg tablet 20 mg PO QPM omeprazole 40 mg capsule,delayed release(DR/EC) 40 mg PO DAILY hydroxyzine HCl 25 mg tablet 25 mg PO HS escitalopram oxalate 20 mg tablet 20 mg PO DAILY memantine 5 mg tablet 5 mg PO QPM mecobalamin (vitamin B12) 1,000 mcg tablet,disintegrating 1,000 mcg sublingual EVERY OTHER DAY Rx Instructions: place tablet under tongue and allow to dissolve for at least30 secs before swallowing trazodone 50 mg tablet See Rx Instructions .ROUTE .COMPLEX Qty: 30 0RF Dose Instruction: TAKE 1 TABLET ORALLY EVERY DAY AT BEDTIME NEEDED FOR INSOMNIA Rx Instructions: TAKE 1 TABLET ORALLY EVERY DAY AT BEDTIME NEEDED FOR INSOMNIA donepezil [Aricept] 10 mg tablet See Rx Instructions PO .COMPLEX Qty: 30 5RF Patient Comments: taking 10mg QHS Rx Instructions: Take 1/2 tablet at bedtime for 2 weeks then increase to 1 tablet at bedtime orally; valsartan 40 mg tablet See Rx Instructions .ROUTE .COMPLEX Qty: 180 3RF Dose Instruction: TAKE 1 TABLET BY MOUTH TWICE A DAY Rx Instructions: TAKE 1 TABLET BY MOUTH TWICE A DAY Held diltiazem HCl 180 mg capsule,extended release 24hr 180 mg PO Q12H Hold Instructions: Resume on 07/25/24. Please discuss with your PCP if you want to continue. Discontinued aspirin 81 mg capsule 81 mg PO DAILY Date of admission: 06/16/24 18:03 Primary Care Provider: April,Manoj Massey Admitting Provider: Sami Murry Attending physician on admission: Chico Cardenas Condition: Stable
--- NOTE | 2024-06-20 10:11 | PCRCNOTE ---
HOME O2 EVAL COMPLETE, NO REQUIREMENTS
--- NOTE | 2024-06-20 14:42 | PCPTNOTE ---
Attempted to see patient for PT, however patient declined due to anticipated discharge.
== END 2024-06-20 15:19 | disposition home or self-care (01) | DRG 175 ==
LOC: ANHED 17:30 → ANHIMU 06-16 17:52 → ANHICU 06-16 21:17 → ANHIMU 06-18 08:18 → ANH2MED 06-20 13:55 → ANHIMU 06-22 13:44
PROVIDERS: Emergency Medicine; Internal Medicine; Physician Assistant; Admitting Provider Internal Medicine; Emergency Provider Emergency Medicine; PCP Family Medicine; Visit Provider General Practice
DX: I26.09 Other pulmonary embolism with acute cor pulmonale (principal); J96.01 Acute respiratory failure with hypoxia; I12.9 Hypertensive chronic kidney disease with stage 1 through stage 4 chronic kidney disease, or unspecified chronic kidney disease; N18.30 Chronic kidney disease, stage 3 unspecified; E78.5 Hyperlipidemia, unspecified; K22.2 Esophageal obstruction; K57.30 Diverticulosis of large intestine without perforation or abscess without bleeding; K44.9 Diaphragmatic hernia without obstruction or gangrene; K21.9 Gastro-esophageal reflux disease without esophagitis; M19.90 Unspecified osteoarthritis, unspecified site; F03.90 Unspecified dementia, unspecified severity, without behavioral disturbance, psychotic disturbance, mood disturbance, and anxiety; F41.9 Anxiety disorder, unspecified; F32.A Depression, unspecified; Z20.822 Contact with and (suspected) exposure to COVID-19; Z96.652 Presence of left artificial knee joint; Z87.11 Personal history of peptic ulcer disease; Z86.0101 Personal history of adenomatous and serrated colon polyps; Z79.82 Long term (current) use of aspirin
CPT/HCPCS: 36415; 71275; 80053; 83735; 83880; 84484; 85025; 85027; 85610; 85730; 87637; 87641; 93005; 93970; 94618; 96374; 96375; 97161; 97165; 97530; 97535; 99291; A9270; C8929; G0378; J1200; J1644; J1650; J2060; J2270; Q9957; Q9967

== ENCOUNTER 2024-09-18 13:55 | Outpatient (CLI) | payer MEDICARE, SELFPAY ==
--- OUTSIDE RECORDS SUMMARY | 2024-09-18 14:08 | XMS_ITS | Patient Health Record ---
Author Organization [facility] Address [address] [facility] [address]. [address] [place] [address] Care Team Providers Care Rubber Tubing Backer Name Role Phone Manoj Chen MD Primary Care Provider Christopher Payne Unavailable [phone] Allergies Allergen (clinical drug ingredient) Drug/Non Drug [...] Problem Status W/U Status Risk Notes Problem 89131635 Alcohol dependence, uncomplicated (F10.20) Active confirmed Problem 79270480 Other Alzheimer' s disease (G30.8) Active confirmed Problem 91431726 Esophageal varic es without bleeding (I85.00) Active confirmed Problem 694235845 Diverticulosis o f large intestine without perforation or abscess without bleeding (K57.30) Active confirmed Problem 398669362 Alcoholic cirrhosis of liver without ascites (K70.30) Active confirmed Problem 558424761775444 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) Active confirmed Problem 638971750 Personal history of colonic polyps (Z86.010) Active confirmed Problem 448271592 GERD (gastroesophageal reflux disease) (K21.9) Active confirmed Problem 671444963 History of colon polyps (Z86.010) Active confirmed Problem 40588988 Dysphagia (R13.10) Active confirmed Problem 4074952283 NAFLD (nonalcoholic fatty liver disease) (K76.0) Active confirmed Problem 89979881 Cirrhosis (K74.60) Active confirmed Problem 029427486 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 [place] [address] 03/09/2024 Christopher Hdz Esophageal varices without bleeding I85.00 ; Alcohol-induced chronic pancreatitis K86.0 ; Alcoholic cirrhosis of liver without ascites K70.30 ; Other Alzheimer's disease G30.8 and Dementia in other diseases classified elsewhere, moderate, with mood disturbance F02.B3 [facility], [address] [place] [address] 01/04/2024 Christopher Hdz Assessments Encounter Date Diagnosis [...] End Date Railroad Medicare E2 [address] [address] [place] [address] [id number] Randi Ervin Self - patient is the insured [employer] Medicare Supplement E2 [address] [place] [address] [id number] Randi Ervin Self - patient is the insured Medical [...]
--- OUTSIDE RECORDS SUMMARY | 2024-09-18 14:08 | XMS_ITS ---
Author Organization [facility], [facility] Address [address] [place] [address] [address] [place] [address] Care Team Providers Care Rn Surgery Icu Name Role Phone Manoj Chen MD Primary Care Provider Christopher Payne Unavailable [phone] REASON FOR VISIT 6 month f/u Encounters Encounter Location Date Provider Diagnosis [address] [place] [address] 03/01/2024 Christopher Hdz Plan Of Treatment No Information Progress Notes * Randi ERVIN SDOB:1950 (73 yo F)Acc No.[id number]:03/01/2024 Patient: Randi MCFADDEN Provider: Rk Hdz MD :1950 A ge:73 Y S ex:Female Date:03/01/2024 Address:[address] [place] [address] Pcp:Manoj Chen MD Subjective: * Chief Complaints: * 1 . 6 month f/u. * Medical History: Objective: * Vitals: Assessment: Plan: * Treatment: * Images: * Electronic signature of Micheal Hdz MD on 09/18/2024 at 02:07 PM CDT Sign off status: Pending * Provider: Rk Hdz MD Date: 1 05/01/2023 Generated for Natoi mehreen/Reji/eTransmitting on: 09/18/2024 02:07 PM CDT
--- OUTSIDE RECORDS SUMMARY | 2024-09-18 14:08 | XMS_ITS | Clinical Summary ---
Author Organization [facility] Address [address] [facility] [place] [address] Care Team Providers Care Gmat Instructor Name Role Phone Adrianna Silva MD Primary Care Provider + Source Comments [facility],non-owned Affiliates and Associated Physician Practices is amultiple site organization consisting of ambulatory clinics and hospital sitesin [place], [place], [place] and [place]. This disclosure is being madepursuant to the Care Everywhere program and may not contain all information available regarding this patient. 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 Gender Identity Not on file Sexual Orientation [...] VACCINE ( - 2023-2 5 season) 2023 Respiratory Syncytial Virus (RSV) Vaccine Pt: or over 60 yrs (1 - 1-dose 75+ series) 12/26/2023 DEPRESSION SCREENING 04/25/2024 INFLUENZA VACCINE (Season Ended) 2024 HEPATITIS B VACCINE Aged Out No longe r eligible based on patient's age to complete this topic HIB VACCINE Aged Out No longer eligi ble based on patient's age to complete this topic HPV VACCINE Aged Out No longer eligi ble based on patient's age to complete this topic MENINGOCOCCAL (Group B) VACC INE SHARED DECISION-MAKING Aged Out No longer eligibl e based on patient's age to complete this topic MENINGOCOCCAL GROUPS A/C/Y/W VACCINE Aged Out No longer eligible b ased on patient's age to complete this topic Insurance MEDICARE [facility] Care Teams Gmat Instructor Relationship Specialty Start Date End Date Adrianna Silva MD [address] [place] [address] PCP - General 06/12/19
--- OUTSIDE RECORDS SUMMARY | 2024-09-18 14:08 | XMS_ITS | Clinical Summary ---
Author Organization [facility] Address [address] [place] [address] Phone Care Team Providers Care County Demonstrator Name Role Phone Adrianna Silva MD Primary Care Provider [phone]- [phone] Allergies Active Allergy Reactions Criticality Noted Date Comments Sulfa (Sulfonamide Antibiotics) Unknown 05/27 Medications traZODone (DESYREL) 50 mg tablet Take 1 Tablet by mouth daily. 05/02/2024 Active donepeziL (ARICEPT) 10 mg tablet Take 1 Tablet by mouth daily. 04/14/2024 Active valsartan (DIOVAN) 40 mg tablet Take 1 Tablet by mouth 2 times daily. 06/03/2024 Active escitalopram oxalate (LEXAPRO) 20 mg tablet Take 1 Tablet by mouth daily. 04/20/2024 Active atorvastatin (LIPITOR) 20 mg tablet Take 1 Tablet by mouth daily. 06/02/2024 Active carvediloL (COREG) 6.25 mg tablet Take 1 Tablet by mouth daily. 04/10/2024 Active hydrOXYzine HCL (ATARAX) 25 mg tablet Take 1 Tablet by mouth every 6 hours. 04/04/2024 Active memantine (NAMENDA) 5 mg Tablet Take 1 Tablet by mouth daily. 04/13/2024 Active omeprazole (PriLOSEC) 40 mg Capsule, Delayed Release(E.C.) Take 1 Capsule by mouth daily. 06/02/2024 Active cyanocobalamin 1,000 mcg Tablet Take 5,000 mcg by mouth daily. Active apixaban (ELIQUIS) 5 mg tablet Take 1 Tablet (5 mg) by mouth 2 times daily. 60 Tablet 2 07/23/2024 Active Active Problems No known active problems Encounters Date Type Department Care Team Description 09/13/2024 External Device Data [facility] ABSTRACTION Provider, Abstract 09/12/2024 External Device Data [facility] ABSTRACTION Provider, Abstract 09/11/2024 External Device Data [facility] ABSTRACTION Provider, Abstract 07/21/2024 Refill [facility] Oncology [facility] Hematology [facility] [address] [place] [address] Elías Arenas MD 07/11/2024 External Device Data [facility] ABSTRACTION Provider, Abstract 06/30/2024 External Device Data [facility]STRACTION Provider, Abstract 06/29/2024 External Device Data [facility] ABSTRACTION Provider, Abstract 06/27/2024 External Device Data [facility]STRACTION Provider, Abstract 06/27/2024 External Device Data [facility] ABSTRACTION Provider, Abstract 06/26/2024 External Device Data [facility] ABSTRACTION Provider, Abstract 06/22/2024 2:30 PM ROUTE DRIVER Office Visit [facility] Oncology [facility] [address] [place] [address] Elías Arenas MD Other acute pulmonary embolism without acute cor pulmonale (CMS/HCC) (Primary Dx) from Last 3 Months Family History Medical History Relation Name Comments Heart Disease Brother 1 No Known Problems Brother 2 No Known Problems Child 1 No Known Problems Child 2 Heart Disease Father Cancer - Other Mother Relation Name Status Comments Brother 1 Alive Brother 2 Alive Child 1 Alive Child 2 Alive Father Mother Social History Tobacco Use Types Packs/Day Years Used Date Smoking Tobacco: Never Smokeless Tobacco: Never Alcohol Use Standard Drinks/Week Comments Yes 0 (1 standard drink = 0.6 oz pur e alcohol) Occasionally Comments Unknown Sex and Gender Information Value Date Recorded Sex Assigned at Not on file Legal Sex Female 4:08 AM ROUTE DRIVER Gender Identity Not on file Sexual Orientation Not on file Last Filed Vital Signs Vital Sign Reading Time Taken Comments Blood Pressure 127/71 06/22/2024 3:00 PM ROUTE DRIVER Pulse 94 06/22/2024 2:56 PM ROUTE DRIVER Temperature 37.2 C (99 F) 06/22/2024 2:56 PM ROUTE DRIVER Respiratory Rate 15 06/22/2024 2:56 PM ROUTE DRIVER Oxygen Saturation 78% 06/22/2024 2:56 PM ROUTE DRIVER Inhaled Oxygen Concentration - - Weight 95.3 kg (210 lb) 06/22/2024 2:56 PM ROUTE DRIVER Height 160 cm (5' 3) 06/22/2024 2:56 PM ROUTE DRIVER Body Mass Index 37.2 06/22/2024 2:56 PM ROUTE DRIVER Plan of Treatment Upcoming Encounters Date Type Department Care Team (Late st Contact Info) Description 09/27/2024 2:30 PM CDT Office Visit [facility] Oncology and Hematology - [facility] [address] [facility] [address] [place] [address] Elías Arenas MD [address] [facility] [address] [place] [address] Health Maintenance Due Date Last Done Comments DTAP/TDAP/TD VACCINES (1 - Tdap) 12/26/1967 PNEUMOCOCCAL VACCINE 50+ YEARS (1 of 2 - PCV) 12/25/18 66 Traditional Medicare (ACO) Annual Wellness Visit 12/25 COLORECTAL SCREENING 1993 Colorectal Cancer Screening 1993 FIT-DNA Q 3 years 1993 FIT/FOBT Q 1 year 1993 Flex Sig/CT Colonography Q 5 years 1993 ZOSTER VACCINE (1 of 2) 1998 OSTEOPOROSIS SCREENING 2013 INFLUENZA VACCINE (#1) 2023 RSV VACCINE (60+ or ) (1 - 1-dose 75+ series) 12/26/2023 Insurance [facility] BLUE ACCESS/TRUE BLUE PPO MEDICARE RAILROAD [facility] BLUE ACCESS/TRUE BLUE PPO MEDICARE RAILROAD Care Teams County Demonstrator Relationship Specialty Start Date End Date Adrianna Silva MD PCP - General Family Practice 03/02/13
--- OUTSIDE RECORDS SUMMARY | 2024-09-18 14:08 | XMS_ITS | Clinical Summary ---
Author Organization [facility] [address] Address [address] [place] [address] Care Team Providers Care Supervising Nurse Name Role Phone Adrianna Silva MD Primary [...] on file Legal Sex Female 6:59 AM EDGE TRIMMER Gender Identity Not on file Sexual Orientation Not on file Obstetrics History Last Filed Vital Signs Vital Sign Reading Time Taken Comments Blood Pressure 138/78 05/01/2021 8:47 AM EDGE TRIMMER Pulse 91 05/01/2021 8:47 AM EDGE TRIMMER Temperature 36.7 C (98.1 F) 10/10/2017 12:15 PM CDT Respiratory Rate 15 01/28/2021 9:05 AM CDT Oxygen Saturation 97% 05/01/2021 8:47 AM EDGE TRIMMER Inhaled Oxygen Concentration - - Weight 89.5 kg (197 lb 4.8 oz) 05/01/2021 8:47 A M EDGE TRIMMER Height 160 cm (5' 3) 05/01/2021 8:47 AM EDGE TRIMMER Body Mass Index 34.95 05/01/2021 8:47 AM EDGE TRIMMER Plan of Treatment Not on file Insurance MEDICARE [place] MEDICARE RAILROAD [address] Care Teams Supervising Nurse Relationship Specialty Start Date End Date Adrianna Silva MD [address] [place] [address] PCP - General Family Medicine 05/03/17
--- OUTSIDE RECORDS SUMMARY | 2024-09-18 14:08 | XMS_ITS | Encounter Summary ---
Author Organization [facility] Address 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 Gender Identity Not on file Sexual Orientation Not on file documented as of this encounter Plan of Treatment Upcoming Encounters Date Type Department Care Team (Late st Contact Info) Description 09/27/2024 2:30 PM CDT Office Visit [facility] Oncology and Hematology - Fausto [address] [facility] [address] [place] [address] Elías Arenas MD [address] [facility] [address] [place] [address] documented as of this encounter Visit Diagnoses Diagnosis Major depressive disorder, single episode, unspecified- Primary documented in this encounter Care Teams Traffic Lieutenant Relationship Specialty Start Date End Date Adrianna Silva MD PCP - General Family Practice 03/02/13 documented as of this encounter
--- OUTSIDE RECORDS SUMMARY | 2024-09-18 14:08 | XMS_ITS | Referral Summary ---
Author Organization [facility] [address] Address [address] [place] [address] Care Team Providers Care Linter Tender Name Role Phone Adrianna Silva MD Primary [...] file Legal Sex Female 6:59 AM SUPERVISOR STENO POOL Gender Identity Not on file Sexual Orientation Not on file Last Filed Vital Signs Vital Sign Reading Time Taken Comments Blood Pressure 138/78 05/01/2021 8:47 AM SUPERVISOR STENO POOL Pulse 91 05/01/2021 8:47 AM SUPERVISOR STENO POOL Temperature 36.7 C (98.1 F) 10/10/2017 12:15 PM CDT Respiratory Rate 15 01/28/2021 9:05 AM CDT Oxygen Saturation 97% 05/01/2021 8:47 AM SUPERVISOR STENO POOL Inhaled Oxygen Concentration - - Weight 89.5 kg (197 lb 4.8 oz) 05/01/2021 8:47 A M SUPERVISOR STENO POOL Height 160 cm (5' 3) 05/01/2021 8:47 AM SUPERVISOR STENO POOL Body Mass Index 34.95 05/01/2021 8:47 AM SUPERVISOR STENO POOL Plan of Treatment Not on file Insurance MEDICARE [employer] [facility] MEDICARE RAILROAD [facility] Care Teams Linter Tender Relationship Specialty Start Date End Date Adrianna Silva MD [address] [facility] [address] [place] [address] PCP - General Family Medicine 05/03/17
[2024-09-18 14:23] LABS: Basophils Absolute Auto 0.1 K/mm3 (0.0-0.1); Basophils Percent Auto 0.7 % (0.2-1.2); Eosinophils Absolute Auto 0.3 K/mm3 (0-0.3); Eosinophils Percent Auto 2.6 % (0-4.4); Hematocrit 41.8 % (37.0-47.0); Hemoglobin 13.1 g/dL (12.0-15.0); Immature Granulocyte Absolute 0.04 K/mm3 (0.00-0.031); Immature Granulocyte Percent A 0.4 % (0-0.5); Lymphocytes Absolute Auto 2.39 K/mm3 (0.9-3.2); Lymphocytes Percent Auto 24.9 % (18.3-44.2); Mean Corpuscular HGB Conc 31.3 g/dl (32-36); Mean Corpuscular Hemoglobin 26.1 pg (26-34); Mean Corpuscular Volume 83.3 fl (80-100); Mean Platelet Volume 9.8 fl (7.4-10.4); Monocytes Absolute Auto 0.9 K/mm3 (0.1-0.6); Monocytes Percent Auto 8.9 % (2.6-8.5); Neutrophils Percent Auto 62.5 % (45.5-73.1); Platelet Count Result 323 k/mm3 (150-375); Red Blood Count 5.02 M/mm3 (4.2-5.4); Red Cell Distribution Width 17.5 % (11.5-14.5); White Blood Count 9.6 K/mm3 (4.5-10.0)
[2024-09-18 16:36] LABS: Alanine Aminotransferase 20 U/L (6-35); Alkaline Phosphatase 150 U/L (38-126); Anion Gap 9 mmol/L (4-12); Aspartate Amino Transferase 34 U/L (14-36); Bilirubin,Total 0.3 mg/dL (0.2-1.3); Blood Urea Nitrogen 19 mg/dL (7-17); Carbon Dioxide 24 mmol/L (22-30); Chloride 106 mmol/L (98-107); Estimated Glomerular Filt Rate > 60; Glucose 85 mg/dL (65-110); Potassium 4.4 mmol/L (3.4-5.0); Sodium 139 mmol/L (137-145)
[2024-09-18 17:19] LABS: D Dimer 0.51 ug/mL (<0.48)
== END 2024-09-18 13:56 | disposition home or self-care (01) ==
LOC: ANHLAB 14:00
PROVIDERS: PCP Family Medicine; Visit Provider Internal Medicine Hematology & Oncology
DX: I26.99 Other pulmonary embolism without acute cor pulmonale (principal)
CPT/HCPCS: 36415; 80053; 85025; 85380

== ENCOUNTER 2024-10-04 06:36 | Outpatient (CLI) | payer MEDICARE, SELFPAY ==
--- NOTE | ~2024-10-04 | CT_ITS ---
Clinical Indication: Pulmonary embolus CT Scan of the Chest with Contrast: Technique: Contiguous sections were acquired throughout the chest after intravenous administration of 100 cc of Omnipaque 350. Dose reduction technique was used on this scan by utilizing automated expos ure control and iterative reconstruction technique. The dose-length product (DLP) was 303.84 mGy-cm. COMPARISON: 06/15/2024 Findings: There is no evidence of any significant mediastinal, hilar or axillary lymphadenopathy. There is no f illing defect in the pulmonary arterial tree to suggest pulmonary embolus. There is no evidence of ao rtic dissection or aneurysm. There is no evidence of pleural or pericardial effusion. The lungs are clear. No pulmonary nodules or infiltrates are noted. Images through the upper abdomen reveal moderate hiatal hernia. Impression: No evidence of pulmonary embolus, aortic dissection, or aortic aneurysm. Previously noted extensive p ulmonary emboli are resolved. Clear lungs. Reviewed, dictated and finalized at [facility]. Impression: No evidence of pulmonary embolus, aortic dissection, or aortic aneurysm. Previo usly noted extensive pulmonary emboli are resolved. Clear lungs.
--- OUTSIDE RECORDS SUMMARY | 2024-10-04 06:39 | XMS_ITS | Clinical Summary ---
Author Organization [facility] [place] [address] Address [address] [place] [address] Care Team Providers Care Business Consult Name Role Phone Adrianna Silva MD Primary [...] on file Legal Sex Female 6:59 AM WELDER FITTER Gender Identity Not on file Sexual Orientation Not on file Obstetrics History Last Filed Vital Signs Vital Sign Reading Time Taken Comments Blood Pressure 138/78 05/01/2021 8:47 AM WELDER FITTER Pulse 91 05/01/2021 8:47 AM WELDER FITTER Temperature 36.7 C (98.1 F) 10/10/2017 12:15 PM CDT Respiratory Rate 15 01/28/2021 9:05 AM CDT Oxygen Saturation 97% 05/01/2021 8:47 AM WELDER FITTER Inhaled Oxygen Concentration - - Weight 89.5 kg (197 lb 4.8 oz) 05/01/2021 8:47 A M WELDER FITTER Height 160 cm (5' 3) 05/01/2021 8:47 AM WELDER FITTER Body Mass Index 34.95 05/01/2021 8:47 AM WELDER FITTER Plan of Treatment Not on file Insurance MEDICARE [employer] MEDICARE RAILROAD [address] Care Teams Business Consult Relationship Specialty Start Date End Date Adrianna Silva MD [address] [facility] [address] [place] [address] PCP - General Family Medicine 05/03/17
--- OUTSIDE RECORDS SUMMARY | 2024-10-04 06:39 | XMS_ITS | Clinical Summary ---
Author Organization [facility] Address [address] [facility] [place] [address] Care Team Providers Care Software Engineer Sales Name Role Phone Adrianna Silva MD Primary Care Provider + Source Comments [facility],non-owned Affiliates and Associated Physician Practices is amultiple site organization consisting of ambulatory clinics and hospital sitesin [place], [place], [place] and [place]. This disclosure is being madepursuant to the Care Everywhere program and may not contain all information available regarding this patient. Last updated 18.[facility] Active Problems Problem Noted Date Diagnosed Date Pulmonary embolism, other, u nspecified chronicity, unspecified whether acute cor pulmonale present 06/17/2024 Multiple subsegmental pulmon lexus emboli without acute cor pulmonale 06/15/2024 Social History Tobacco Use Types Packs/Day Years Used Date Smoking Tobacco: Never Assessed Comments Unknown Sex and Gender Information Value Date Recorded Sex Assigned at Not on file Legal Sex Female 6:22 AM ELEMENTARY SCHOOL DIRECTOR Gender Identity Not on file Sexual Orientation [...] age to complete this topic Insurance MEDICARE [facility] Care Teams Software Engineer Sales Relationship Specialty Start Date End Date Adrianna Silva MD [address] [place] [address] PCP - General 06/12/19
--- OUTSIDE RECORDS SUMMARY | 2024-10-04 06:39 | XMS_ITS | Encounter Summary ---
Author Organization [facility] Address [address] [place] [address] Care Team Providers Care Automotive Parts Clerk Name Role Phone Manoj Chen MD Primary Care Provider [phone] Encounter Details Date Type Department Care Team (Latest Contact Info) Description 10/01/2002 Outpatient Historical HIS DUAL IOP Fernandez Galvan MD [address] [place] [address] [address] [place] [address] DEPRESS PSYCHOSIS-UNSPEC (Primary Dx) Social History Tobacco Use Types Packs/Day Years Used Date Smoking Tobacco: Never Assessed Comments Unknown Sex and Gender Information Value Date Recorded Sex Assigned at Not on file Legal Sex Female 4:08 AM ANALOG IC DESIGN ARCHITECT Gender Identity Not on file Sexual Orientation Not on file documented as of this encounter Plan of Treatment Upcoming Encounters Date Type Department Care Team (Late st Contact Info) Description 10/11/2024 4:30 PM CDT Telephone Check Up [facility] Oncology and Hematology - Fausto [address] [place] [address] [facility] [address] [place] [address] Elías Arenas MD [address] [facility] [address] [place] [address] documented as of this encounter Visit Diagnoses Diagnosis Major depressive disorder, single episode, unspecified- Primary documented in this encounter Care Teams Automotive Parts Clerk Relationship Specialty Start Date End Date Manoj Chen MD [address] [place] [phone] PCP - General Family Practice 09/27/24 documented as of this encounter
--- OUTSIDE RECORDS SUMMARY | 2024-10-04 06:39 | XMS_ITS | Referral Summary ---
Author Organization [facility] [address] Address [address] [place] [address] Care Team Providers Care Secretary Administrative Assistant Name Role Phone Adrianna Silva MD Primary [...] on file Legal Sex Female 6:59 AM MASON TENDER RESTORATION LABOR Gender Identity Not on file Sexual Orientation Not on file Last Filed Vital Signs Vital Sign Reading Time Taken Comments Blood Pressure 138/78 05/01/2021 8:47 AM MASON TENDER RESTORATION LABOR Pulse 91 05/01/2021 8:47 AM MASON TENDER RESTORATION LABOR Temperature 36.7 C (98.1 F) 10/10/2017 12:15 PM CDT Respiratory Rate 15 01/28/2021 9:05 AM CDT Oxygen Saturation 97% 05/01/2021 8:47 AM MASON TENDER RESTORATION LABOR Inhaled Oxygen Concentration - - Weight 89.5 kg (197 lb 4.8 oz) 05/01/2021 8:47 A M MASON TENDER RESTORATION LABOR Height 160 cm (5' 3) 05/01/2021 8:47 AM MASON TENDER RESTORATION LABOR Body Mass Index 34.95 05/01/2021 8:47 AM MASON TENDER RESTORATION LABOR Plan of Treatment Not on file Insurance MEDICARE [employer] [facility] MEDICARE RAILROAD [facility] Address: [address] [address] [place] [address] [facility] Care Teams Secretary Administrative Assistant Relationship Specialty Start Date End Date Adrianna Silva MD [address] [facility] [address] [place] [address] PCP - General Family Medicine 05/03/17
--- OUTSIDE RECORDS SUMMARY | 2024-10-04 06:39 | XMS_ITS | Clinical Summary ---
Author Organization [facility] Address [address] [place] [address] Phone Care Team Providers Care Sales Analytics Manager Name Role Phone Manoj Chen MD Primary Care Provider [phone] Allergies Active Allergy Reactions Criticality Noted Date Comments Sulfa (Sulfonamide Antibiotics) Unknown 05/27 Medications traZODone (DESYREL) 50 mg tablet Take 1 Tablet by mouth daily. 5 Active donepeziL (ARICEPT) 10 mg tablet Take 1 Tablet by mouth daily. 4 Active valsartan (DIOVAN) 40 mg tablet Take 1 Tablet by mouth 2 times daily. 5 Active escitalopram oxalate (LEXAPRO) 20 mg tablet Take 1 Tablet by mouth daily. 4 Active atorvastatin (LIPITOR) 20 mg tablet Take 1 Tablet by mouth daily. 5 Active carvediloL (COREG) 6.25 mg tablet Take 1 Tablet by mouth daily. 4 Active hydrOXYzine HCL (ATARAX) 25 mg tablet Take 1 Tablet by mouth every 6 hours. 4 Active memantine (NAMENDA) 5 mg Tablet Take 1 Tablet by mouth daily. 4 Active omeprazole (PriLOSEC) 40 mg Capsule, Delayed Release(E.C.) Take 1 Capsule by mouth daily. 5 Active cyanocobalamin 1,000 mcg Tablet Take 5,000 mcg by mouth daily. Active apixaban (ELIQUIS) 5 mg tablet Take 1 Tablet (5 mg) by mouth 2 times daily. 60 Tablet 2 5 Active apixaban (ELIQUIS) 5 mg tablet Take 1 Tablet (5 mg) by mouth 2 times daily. 60 Tablet 2 5 09/28/19 25 Discontinu ed(Reorder ) Active Problems No known active problems Encounters Date Type Department Care Team Description 09/27/2024 2:30 PM CDT Office Visit [facility] Oncology and Hematology [facility] [address] [place] [address] Elías Arenas MD Other acute pulmonary embolism without acute cor pulmonale (CMS/HCC) (Primary Dx) 09/21/2024 Orders Only [facility] Oncology and [facility] [address] [place] [address] Elías Arenas MD 09/13/2024 External Device Data STL ABSTRACTION Provider, Abstract 09/12/2024 External Device Data STL ABSTRACTION Provider, Abstract 09/11/2024 External Device Data STL ABSTRACTION Provider, Abstract 07/21/2024 Refill [facility] Oncology and Hematology [facility] [address] [place] [address] Elías Arenas MD 07/11/2024 External Device Data STL ABSTRACTION Provider, Abstract from Last 3 Months Family History Medical [...] Date Smoking Tobacco: Never Smokeless Tobacco: Never Tobacco Cessation:Counseling Given: Not Answered Alcohol Use Standard Drinks/Week Comments Yes 0 (1 standard drink = 0.6 oz pur e alcohol) Occasionally Comments Unknown Sex and Gender Information Value Date Recorded Sex Assigned at Not on file Legal Sex Female 4:08 AM SALVAGE CLERK Gender Identity Not on file Sexual Orientation Not on file Last Filed Vital Signs Vital Sign Reading Time Taken Comments Blood Pressure 131/61 09/27/2024 2:33 PM CDT Pulse 75 09/27/2024 2:33 PM CDT Temperature 37.5 C (99.5 F) 09/27/2024 2:33 PM CDT Respiratory Rate 15 09/27/2024 2:33 PM CDT Oxygen Saturation 94% 09/27/2024 2:33 PM CDT Inhaled Oxygen Concentration - - Weight 96.3 kg (212 lb 3.2 oz) 09/27/2024 2:33 P M CDT Height 160 cm (5' 3) 06/22/2024 2:56 PM SALVAGE CLERK Body Mass Index 37.59 06/22/2024 2:56 PM SALVAGE CLERK Plan of Treatment Upcoming Encounters Date Type Department Care Team (Late st Contact Info) Description 10/11/2024 4:30 PM CDT Telephone Check Up [facility] Oncology and Hematology - [place]ese [address] [facility] [address] [place] [address] Elías Arenas MD [address] [facility] [address] [place] [address] Health Maintenance Due Date Last Done Comments DTAP/TDAP/TD VACCINES (1 - Tdap) 12/26/1967 PNEUMOCOCCAL VACCINE 50+ YEARS (1 of 2 - PCV) 12/25/18 68 COLORECTAL SCREENING 1993 Colorectal Cancer Screening 1993 FIT-DNA Q 3 years 1993 FIT/FOBT Q 1 year 1993 Flex Sig/CT Colonography Q 5 years 1993 ZOSTER VACCINE (1 of 2) 1998 OSTEOPOROSIS SCREENING 2013 INFLUENZA VACCINE (#1) 2023 RSV VACCINE (60+ or ) (1 - 1-dose 75+ series) 12/26/2023 Procedures Procedure Name Priority Date/Time Associated Diagnosis Comments CBC WITH DIFFERENTIAL Routine 09/18/2024 3:30 PM CDT COMPREHENSIVE METABOLIC PANEL Routine 09/18/2024 3:14 PM CDT D-DIMER Routine 09/18/2024 3:08 PM CDT from Last 3 Months Results * CBC WITH DIFFERENTIAL (09/18/2024 3:30 PM CDT) Blood Elías Arenas MD HEMATOLOGY ORDERABLES Final Res ult * COMPREHENSIVE METABOLIC PANEL (09/18/2024 3:14 PM CDT) Blood Elías Arenas MD CHEMISTRY ORDERABLES Final Resu lt * D-DIMER (09/18/2024 3:08 PM CDT) Blood Elías Arenas MD HEMATOLOGY ORDERABLES Final Res ult from Last 3 Months Insurance BCBS BLUE ACCESS/TRUE BLUE PPO MEDICARE RAILROAD [employer] BLUE ACCESS/TRUE BLUE PPO MEDICARE RAILROAD Care Teams Sales Analytics Manager Relationship Specialty Start Date End Date Manoj Chen MD [address] [place] [address] PCP - General Family Practice 09/27/24
--- OUTSIDE RECORDS SUMMARY | 2024-10-04 06:39 | XMS_ITS ---
Author Organization [facility] Address [address] [place] [address] [address] [place] [address] Care Team Providers Care Sales Agent Name Role Phone Manoj Chen MD Primary Care Provider Christopher Payne Unavailable [phone] REASON FOR VISIT 6 month f/u Encounters Encounter Location Date Provider Diagnosis [address] [place] [address] 03/01/2024 Christopher Hdz Plan Of Treatment No Information Progress Notes * Randi ERVIN SDOB:1950 (73 yo F)Acc No.[id number]:03/01/2024 Patient: Randi MCFADDEN Provider: Rk Hdz MD :1950 A ge:73 Y S ex:Female Date:03/01/2024 Address:[address] [place] [address] Pcp:Manoj Chen MD Subjective: * Chief Complaints: * 1 . 6 month f/u. * Medical History: Objective: * Vitals: Assessment: Plan: * Treatment: * Images: * Electronic signature of Micheal Hdz MD on 10/04/2024 at 06:38 AM CDT Sign off status: Pending * Provider: Rk Hdz MD Date: 1 05/01/2023 Generated for Natoi mehreen/Reji/eTransmitting on: 10/04/2024 06:38 AM CDT
--- OUTSIDE RECORDS SUMMARY | 2024-10-04 06:39 | XMS_ITS | Patient Health Record ---
Author Organization [facility] Address [address] [facility] [place]. [address] [place] [address] Care Team Providers Care Water Filterer Name Role Phone Manoj Chen MD Primary Care Provider Christopher Payne Unavailable [phone] Allergies Allergen (clinical drug ingredient) Drug/Non Drug [...] Problem Status W/U Status Risk Notes Problem 10648360 Alcohol dependence, uncomplicated (F10.20) Active confirmed Problem 54250277 Other Alzheimer' s disease (G30.8) Active confirmed Problem 29527182 Esophageal varic es without bleeding (I85.00) Active confirmed Problem 939014957 Diverticulosis o f large intestine without perforation or abscess without bleeding (K57.30) Active confirmed Problem 645134162 Alcoholic cirrhosis of liver without ascites (K70.30) Active confirmed Problem 695051919405527 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) Active confirmed Problem 636326289 Personal history of colonic polyps (Z86.010) Active confirmed Problem 526356103 GERD (gastroesophageal reflux disease) (K21.9) Active confirmed Problem 604851178 History of colon polyps (Z86.010) Active confirmed Problem 63416794 Dysphagia (R13.10) Active confirmed Problem 2460574234 NAFLD (nonalcoholic fatty liver disease) (K76.0) Active confirmed Problem 37305925 Cirrhosis (K74.60) Active confirmed Problem 171534767 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 [place] [address] [place] [address] 03/09/2024 Christopher Hdz Esophageal varices without bleeding I85.00 ; Alcohol-induced chronic pancreatitis K86.0 ; Alcoholic cirrhosis of liver without ascites K70.30 ; Other Alzheimer's disease G30.8 and Dementia in other diseases classified elsewhere, moderate, with mood disturbance F02.B3 [facility], [address] [place] [address] 01/04/2024 Christopher Hdz Assessments Encounter Date Diagnosis [...] End Date [employer] Medicare E2 [address] [address] [place] [address] [id number] Randi Ervin Self - patient is the insured Anthem Medicare Supplement E2 [address] [place] [address] [id number] Randi Ervin Self - patient is the [...]
== END 2024-10-04 06:37 | disposition home or self-care (01) ==
PROVIDERS: PCP Family Medicine; Visit Provider Internal Medicine Hematology & Oncology
DX: I26.99 Other pulmonary embolism without acute cor pulmonale (principal)
CPT/HCPCS: 71275; Q9967

== ENCOUNTER 2024-10-18 13:16 | Outpatient (CLI) | payer MEDICARE, SELFPAY ==
[2024-10-22 11:53] LABS: Homocysteine. 11.1 umol/L (< or = 13.4)
[2024-10-22 19:13] LABS: Lupus dRVVT Screen 36 sec (< OR = 45); PTT-LA Screen 34 sec (< OR = 40)
[2024-10-26 23:04] LABS: Factor V (Leiden) Mutation NEGATIVE
== END 2024-10-18 13:17 | disposition home or self-care (01) ==
LOC: ANHLAB 13:17
PROVIDERS: PCP Family Medicine; Visit Provider Internal Medicine Hematology & Oncology
DX: I26.99 Other pulmonary embolism without acute cor pulmonale (principal)
CPT/HCPCS: 36415; 81240; 81241; 83090; 85300; 85303; 85306; 85613; 85730; 86146